=== PATIENT | male | born 1955 | race Caucasian/White ===

== ENCOUNTER 2020-03-27 15:20 | Emergency (ER) | payer BC, SELFPAY ==
[2020-03-27 15:36] VITALS: BP 135/75; PULSE 83; RESP 18; TEMP 37.1; O2SAT 97
--- NOTE | 2020-03-27 15:53 | ED.GENADUL_ITS ---
Discharge Plan Disposition Patient Disposition: HOME Condition: Stable Discharge Details Clinical Impression: Groin pain Primary Care Provider: Roc Alvarado ED Provider: Diony Taylor Home Meds and New Rx's Prescriptions: New diazepam [Valium] 10 mg tablet 10 mg PO TID PRN (Reason: muscle spasm) Qty: 10 RF: 0 Continued tamsulosin [Flomax] 0.4 mg Capsule 0.4 mg PO DAILY RF: 0 Zyrtec 10 mg Capsule 10 mg PO DAILY RF: 0 tadalafil [Cialis] 10 mg Tablet 10 mg PO PRN PRNRF: 0 bupropion HCl [Wellbutrin SR] 150 mg Tablet Sustained-Release 12 Hr 150 mg PO DAILY RF: 0 Cequa 0.09 % Dropperette 1 drp ophthalmic (eye) BID RF: 0 Discharge Instructions Additional Instructions: your lab work and cat scan did not show any concerning findings if pain is not gone within a week follow up with your primary care provider if you have severe worsening pain, fevers or vomit return to the emergency department Medical Decision Making 64 yo male with hx of prostate cancer undergoing surveillance per patient, who comes in with bilateral lower abdominal and groin pain since Monday. He states he was walking and slipped on some leaves and pulled his groin. He denies trauma or head injury. He has continued pain in lower abdomen and groin bilaterally, no fevers, no vomit no chestpain or sob. No testicle pain, swelling or tenderness, pain is localized to the bilateral groins and very lower abdomen bilaterally with no guarding or rebound or palpable hernias. Pain seems musculoskeletal but will image to evaluate for possible hernia. He has no findings to suggest torsion. No findings to suggest nec fasc or cellulitis. HAs intact distal sensation and pulses and can bear weight, doubt fracture or dissection. No s addle anesthesia and no midline back pain so doubt cauda equina and denies ivdu labs show no acute findings and has no tenderness on exam, likely has pulled groin will d/c with muscle relaxers and advised follow up with pcp and return precautions given Differential Diagnosis Differential Diagnosis: hernia, kidney stone Imaging Data Radiologic Study: Attestation: I personally reviewed and interpreted this imaging study as follows: Imaging: CT Scan Radiologist's impression: IMPRESSION: 1. No acute fracture or dislocation. Chronic degenerative changes in the lumbar spine and the pelvis. 2. Prostate gland enlargement. 3. No subacute solid or hollow viscus injury. 4. No acute intra-abdominal or pelvic findings. 5. Multiple large simple right renal cysts. The largest measures 4 cm Lab Data Lab results reviewed: Yes I reviewed the patient's lab results. HPI General Mode of arrival: ambulatory . Date/Time Provider Initiated Documentation: 03/27/20 15:23 . Limitations to Documentation: no limitations . Information obtained by: patient . History of Present Illness 64 year old M presents to the emergency department with the chief complaint of bilateral groin pain, described as moderate, and it has been constant. No relieving factors improve symptom(s), No exacerbating factors reported . Patient did receive the following treatments prior to arrival, none Related Data Home Medications Medication Instructions Recorded Confirmed Cequa 1 drp OPHTHALMIC (EYE) BID 03/27/20 03/27/20 Zyrtec 10 mg PO DAILY 03/27/20 03/27/20 bupropion HCl [Wellbutrin SR] 150 mg PO DAILY 03/27/20 03/27/20 diazepam [Valium] 10 mg PO TID PRN #10 tab 03/27/20 tadalafil [Cialis] 10 mg PO PRN PRN 03/27/20 03/27/20 tamsulosin [Flomax] 0.4 mg PO DAILY 03/27/20 03/27/20 Previous Rx's Medication Instructions Recorded diazepam [Valium] 10 mg PO TID PRN #10 tab 03/27/20 Allergies Allergy/AdvReac Type Severity Reaction Status Date / Time No Known Allergies Allergy Unverified 03/27/20 15:47 General Stated Complaint: Abd Prob ELIZABETH: 3 Review of Systems All systems reviewed & are unremarkable except as noted in HPI and below Constitutional Constitutional: Denies chills, Denies fever(s) and Denies weakness Cardiovascular Cardiovascular: Denies chest pain and Denies dyspnea Respiratory Respiratory: Denies cough and Denies dyspnea Gastrointestinal Gastrointestinal: Denies nausea and Denies vomiting Musculoskeletal Musculoskeletal: Denies joint swelling Neurologic Neurologic: Denies weakness Psychiatric Psychiatric: Denies depression PFSH Social History Smoking/Tobacco Use Status: Former Tobacco Use Smoking risk assessment performed?: Yes Alcohol Intake: current Alcohol Intake frequency: 0-2 drinks per day Alcohol type: hard liquor Drug use: Never Substance use type: does not use Do you feel safe at home: Yes Do you feel safe in your relationship?: Yes Exam Const General: no acute distress Orientation: alert HENMT Head: normal to inspection Ears: external ears normal General nose exam: external nose normal Mouth: moist mucous membranes Eyes General: appearance normal, both eyes and all related structures Neck Neck: normal visual inspection Resp Effort & Inspection: normal respiratory effort and able to speak in complete sentences Cardio Rate: regular rate GI Palpation: soft Male General Exam: No tenderness Skin General skin exam: no rashes or lesions noted Neuro General: patient alert and patient oriented x3 Extrem General: normal to inspection Psych Mental Status: mental status grossly normal Course Vital Signs Vital signs: Vital Signs Temperature 37.1 C 03/27/20 15:36 Pulse 83 03/27/20 15:36 Respiratory Rate 18 03/27/20 15:36 Blood Pressure 135/75 03/27/20 15:36 Pulse Oximetry 97 03/27/20 15:36 Temperature 37.1 C 03/27/20 15:36 Temperature Source Temporal Artery Scan 03/27/20 15:36 Pulse 83 03/27/20 15:36 Respiratory Rate 18 03/27/20 15:36 Blood Pressure 135/75 03/27/20 15:36 Blood Pressure Position Sitting 03/27/20 15:36 Pulse Oximetry 97 03/27/20 15:36 Oxygen Delivery Method Room Air 03/27/20 15:36 Oxygen Flow Rate 0 03/27/20 15:36 Pain Level 3 03/27/20 15:36
[2020-03-27 16:09] LABS: Abs Immature Grans 0.03 10^3/uL (0.0-0.06); Absolute Basophil Count 0.03 10^3/uL (0.0-0.2); Absolute Eosinophil Count 0.05 10^3/uL (0.0-0.7); Absolute Lymphocyte Count 0.86 10^3/uL (1.2-3.4); Absolute Monocyte Count 0.74 10^3/uL (0.1-0.8); Absolute Neutrophil Count 6.53 10^3/uL (1.2-6.7); Basophils % 0.4; Eosinophils % 0.6; HCT 40.7 % (40.0-50.0); HGB 13.7 g/dL (13.5-17.5); Immature Grans % 0.4; Lymphocytes % 10.4; MCH 29.2 pg (27.0-33.0); MCHC 33.7 % (32.0-36.0); MCV 86.8 fL (80-95); MPV 9.6 fL (8.0-11.0); Neutrophils % 79.2; Nucleated RBC 0 %; Platelet Count 189 10^3/uL (130-400); RBC 4.69 10^6/uL (4.36-5.78); RDW 12.5 % (11.8-14.1); RDW-SD 39.6 fL; WBC 8.24 10^3/uL (4.4-10.8)
[2020-03-27] MEDS: Normal Saline - Diluent 50 ML VIAL IV (16:19)
[2020-03-27] MEDS: Omnipaque 350 MG/ML 100 ML BTL IJ (16:20)
--- NOTE | 2020-03-27 16:21 | DI.CT_ITS ---
EXAM: CT ABDOMEN PELVIS W CLINICAL HISTORY: bilateral lower abdominal and groin pain TECHNIQUE: COMPARISON: No exams were available for comparison FINDINGS: CT examination of the abdomen and pelvis was performed with bolus infusion of 100 cc of Omnipaque 350 . Images obtained through the lung bases are unremarkable. The liver appears normal with no evidence of a focal mass. Spleen is unremarkable in appearance.. Gallbladder and bile ducts are unremarkable. Pancreas is unremarkable in appearance. Adrenals appear normal bilaterally. There are multiple renal cysts on the right, largest measuring about 4 cm in diameter. These appear to be simple cysts by CT criteria. There is no evidence of abdominal or pelvic adenopathy. Abdominal aorta is of normal diameter and no major vascular abnormality is seen. Appendix is normal. No evidence diverticulitis or bowel obstruction. No significant abdominal wall hernia seen. Impression: No evidence of acute intra-abdominal process. Multiple renal cysts noted on the right. RADIATION DOSE DELIVERED: 1,014.12mGy.cm Total DLP 1,014.12mGy.cm Total DLP 1,014.12mGy.cm Total DLP 1,014.12mGy.cm Total DLP DATA REPOSITORY: All CT scans at this facility are submitted to the National Radiology Data Registry (NRDR) Dose Index Registry (DIR) with the [employer] (ACR). RADIATION OPTIMIZATION: All CT scans at this facility use at least one of these dose optimization te chniques: automated exposure control; mA and/or kV adjustment per patient size (includes targeted exa ms where dose is matched to clinical indication); or iterative reconstruction.
[2020-03-27] MEDS: Normal Saline 1,000 ML 1000 ML IV (16:23)
[2020-03-27 16:29] LABS: ALT 26 U/L (16-63); AST 21 U/L (15-37); Albumin 3.8 g/dL (3.4-5.0); Alkaline Phosphatase 51 U/L (46-116); Anion Gap 11.4 mmol/L (3-11); BUN 13 mg/dL (7-18); Bilirubin, Total 0.6 mg/dL (0.2-1.0); CO2 24.6 mmol/L (21.0-32.0); CREATININE 0.74 mg/dL (0.70-1.30); Calcium 8.8 mg/dL (8.5-10.1); Chloride 103 mmol/L (98-107); Glucose 105 mg/dL (74-106); Lipase 79 U/L (73-393); Sodium 139 mmol/L (136-145); Total Protein 7.7 g/dL (6.4-8.2)
--- NOTE | 2020-03-27 16:39 | DI.VRAD_ITS ---
PROCEDURE INFORMATION: Exam: CT Abdomen And Pelvis With Contrast Exam date and time: 03/27/2020 3:53 PM Age: 64 years old Clinical indication: Abdominal pain; Other: RT groin pain; Patient HX: Injury 4 days ago TECHNIQUE: Imaging protocol: Computed tomography of the abdomen and pelvis with intravenous contrast. Radiation optimization: All CT scans at this facility use at least one of these dose optimization techniques: automated exposure control; mA and/or kV adjustment per patient size (includes targeted exams where dose is matched to clinical indication); or iterative reconstruction. Contrast material: OMNI 350; Contrast volume: 100 ml; Contrast route: INTRAVENOUS (IV); COMPARISON: No relevant prior studies available. FINDINGS: Lungs: Tiny focus of posterior right lower lobe atelectasis. The visualized lung bases are otherwise clear. Heart size is normal. Liver: Mild generalized hepatic steatosis. No hepatic laceration. No perihepatic fluid. Gallbladder and bile ducts: Normal. No calcified stones. No ductal dilation. Pancreas: Normal. No ductal dilation. Spleen: Normal. No splenomegaly. Adrenal glands: Normal. No mass. Kidneys and ureters: Multiple large right lower pole renal cyst. Largest measures 4 cm. Subcentimeter medial left lower pole renal cyst. Stomach and bowel: Unremarkable. No obstruction. No mucosal thickening. Appendix: Normal appendix. No acute appendicitis. Intraperitoneal space: Unremarkable. No free air. No significant fluid collection. Vasculature: Unremarkable. No abdominal aortic aneurysm. Lymph nodes: Unremarkable. No enlarged lymph nodes. Urinary bladder: Unremarkable as visualized. Reproductive: Prostate gland enlargement measuring up 5.6 cm in transverse dimension. Median lobe hypertrophy. Bones/joints: Multilevel degenerative changes in the lumbar spine. Chronic sacroiliitis, left greater than right. Osteitis pubis. No acute fracture or dislocation. Soft tissues: Unremarkable. IMPRESSION: 1. No acute fracture or dislocation. Chronic degenerative changes in the lumbar spine and the pelvis. 2. Prostate gland enlargement. 3. No subacute solid or hollow viscus injury. 4. No acute intra-abdominal or pelvic findings. 5. Multiple large simple right renal cysts. The largest measures 4 cm. Dictated and Authenticated by: Shakila Wilkinson MD. Ordering:PETROS Vora MD
[2020-03-27 16:45] LABS: Bilirubin Negative (Negative); Blood Small (Negative); Clarity Clear (Clear); Glucose Negative (Negative); Ketones Negative (Negative); Leukocyte Esterase Negative (Negative); Nitrite Negative (Negative); Specific Gravity 1.025 (1.005-1.025); Urobilinogen 0.2 EU/dL (Up TO 0.2); pH 6.5 (5-8)
[2020-03-27 16:52] LABS: RBC 0-2 HPF (0-2); WBC 0-2 HPF (0-5)
[2020-03-27 16:53] LABS: Bacteria Negative HPF (Negative); C & S Indicated? No; Casts Negative LPF (Negative); Crystals Negative HPF (Negative); Epithelial Cells Rare HPF (Negative); Mucus Negative (Negative)
[2020-03-27 16:55] VITALS: BP 133/85; PULSE 73; RESP 16; O2SAT 98
== END 2020-03-27 17:10 | disposition home or self-care (01) ==
PROVIDERS: Emergency Provider Emergency Medicine; PCP Family Medicine
DX: R10.31 Right lower quadrant pain (principal); R10.32 Left lower quadrant pain; W18.49XA Other slipping, tripping and stumbling without falling, initial encounter; Z85.46 Personal history of malignant neoplasm of prostate
CPT/HCPCS: 36415; 80053; 83690; 96360; 99285; 74177; 81003; 81015; 85025; 99284; J3490

== ENCOUNTER 2021-03-03 13:09 | Outpatient (REF) | payer BC, SELFPAY ==
[2021-03-03 14:10] LABS: CREATININE 0.9 mg/dL (0.70-1.30); TSH (W/Ref FT4) 4.55 uIU/mL (0.36-3.74)
[2021-03-03 14:31] LABS: Hemoglobin A1C 5.4 % (<5.7)
[2021-03-03 14:32] LABS: FREE T4 0.95 ng/dL (0.76-1.46)
[2021-03-03 21:37] LABS: PSA, Diagnostic 4.7 ng/mL (0.0-4.5)
[2021-03-04 10:19] LABS: Hepatitis C Ab w Rflx HCV PCR Negative (Negative)
== END 2021-03-03 13:10 | disposition home or self-care (01) ==
LOC: NCHCN 13:09
PROVIDERS: PCP Family Medicine; Visit Provider Family Medicine
DX: Z00.00 Encounter for general adult medical examination without abnormal findings (principal); C61 Malignant neoplasm of prostate; R94.6 Abnormal results of thyroid function studies; R73.09 Other abnormal glucose; I10 Essential (primary) hypertension; Z11.59 Encounter for screening for other viral diseases
CPT/HCPCS: 86803; 82565; 83036; 84153; 84439; 84443

== ENCOUNTER 2021-04-29 09:05 | Emergency (ER) | payer BC, SELFPAY ==
[2021-04-29 09:09] VITALS: BP 180/82; PULSE 61; RESP 16; TEMP 36.7; O2SAT 100
--- NOTE | 2021-04-29 09:19 | ED.GENADUL_ITS ---
Discharge Plan Disposition Patient Disposition: HOME Condition: Stable Discharge Details Clinical Impression: Rib contusion, Cervical strain, Blunt chest trauma Primary Care Provider: Roc Alvarado ED Provider: Diony Taylor Home Meds and New Rx's Prescriptions: Continued tamsulosin [Flomax] 0.4 mg Capsule 0.4 mg PO DAILY RF: 0 Zyrtec 10 mg Capsule 10 mg PO DAILY RF: 0 tadalafil [Cialis] 10 mg Tablet 10 mg PO PRN PRNRF: 0 bupropion HCl [Wellbutrin SR] 150 mg Tablet Sustained-Release 12 Hr 150 mg PO DAILY RF: 0 Cequa 0.09 % Dropperette 1 drp ophthalmic (eye) BID RF: 0 Discharge Instructions Instructions: Cervical Strain (ED), Rib Contusion (ED) Additional Instructions: your imaging shows no acute fractures if pain continues next week follow up with your primary care provider if you feel more ill, have severe worsening pain or difficulty breathing return to the emergency department Medical Decision Making 65 yo male comes in with neck pain and left scapula pain. He was getting out of his car and slipped on ice and landed on his left side. Denies hitting head or loc and had no preceding symptoms to the fall. He denies head pain abodminal pa in leg pain. He has pain in the left posterior back over the left scapula. No pain in the shoulder, humerus, elbow, forearm, wrist or hand, normal pulses and sensation. He is also tender to palpation in the 3-6 ribs in the mid axillary line on the left. No midline c spine tenderness but is tender to the left posterior neck. Suspect strain and contusions but will obtain ct c spine and chest. HE has no abdominal tenderness and no signs of trauma to the head so do not feel imaging of head or abdomen/pelvis indicated. 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 Has no midline tenderness and full range of motion. Suspect contusion will discharge and have him follow up with his pcp if pain continues next week and return precautions given Differential Diagnosis Differential Diagnosis: fracture, strain, contusion Imaging Data Radiologic Study: Attestation: I personally reviewed and interpreted this imaging study as follows: Imaging: CT Scan Radiologist's impression: IMPRESSION: No evidence of cervical spine fracture, malalignment, nor acute compromise of the cervical spinal canal. Previous multilevel left-sided laminae a surgeries as described above. Radiologic Study #2: Attestation: I personally reviewed and interpreted this imaging study as follows: Imaging: CT Scan Radiologist's impression: no acute findings on chest ct per Dr. Bela HPI General Mode of arrival: ambulatory . Date/Time Provider Initiated Documentation: 04/29/21 09:06 . Limitations to Documentation: no limitations . Information obtained by: patient . History of Present Illness 65 year old M presents to the emergency department with the chief complaint of neck pain, described as moderate, Quality is described as aching, and is localized to the neck. Patient started experiencing this hour(s) (1) and it has been constant. Rest improves symptom(s), Movement worsens symptoms . Patient n otes other (left scapula pain). Patient did receive the following treatments prior to arrival, none Related Data Home Medications Medication Instructions Recorded Confirmed Cequa 1 drp OPHTHALMIC (EYE) BID 03/27/20 04/29/21 Zyrtec 10 mg PO DAILY 03/27/20 04/29/21 bupropion HCl [Wellbutrin SR] 150 mg PO DAILY 03/27/20 04/29/21 tadalafil [Cialis] 10 mg PO PRN PRN 03/27/20 04/29/21 tamsulosin [Flomax] 0.4 mg PO DAILY 03/27/20 04/29/21 Allergies Allergy/AdvReac Type Severity Reaction Status Date / Time No Known Allergies Allergy Unverified 04/29/21 09:15 General Stated Complaint: Trauma ELIZABETH: 3 Review of Systems All systems reviewed & are unremarkable except as noted in HPI and below Constitutional Constitutional: Denies chills, Denies fever(s) and Denies weakness Cardiovascular Cardiovascular: Denies dyspnea Respiratory Respiratory: Denies cough and Denies dyspnea Gastrointestinal Gastrointestinal: Denies abdominal pain, Denies nausea and Denies vomiting Musculoskeletal Musculoskeletal: Denies joint swelling Neurologic Neurologic: Denies weakness PFSH All Active Problems (Updated 04/29/21 @ 10:36 by Diony Taylor MD) Rib contusion (Acute) Cervical strain (Acute) Blunt chest trauma (Acute) Social History Smoking/Tobacco Use Status: Former Tobacco Use Smoking risk assessment performed?: Yes Alcohol Intake: current Alcohol Intake frequency: 0-2 drinks per day Alcohol ty pe: hard liquor Drug use: Never Substance use type: does not use Do you feel safe at home: Yes Do you feel safe in your relationship?: Yes Exam Const General: no acute distress Orientation: alert HENMT Head: normal to inspection Ears: external ears normal General nose exam: external nose normal Mouth: moist mucous membranes Eyes General: appearance normal, both eyes and all related structures Neck Neck: normal visual inspection Chest Chest: no crepitus and tenderness Resp Effort & Inspection: normal respiratory effort and able to speak in complete sentences Cardio Rate: regular rate GI Palpation: soft and nontender Skin General skin exam: no rashes or lesions noted Neuro General: patient alert and patient oriented x3 Extrem General: normal to inspection Psych Mental Status: mental status grossly normal Course Vital Signs Vital signs: Vital Signs Temperature 36.7 C 04/29/21 09:09 Pulse 61 04/29/21 09:09 Respiratory Rate 16 04/29/21 09:09 Blood Pressure 180/82 H 04/29/21 09:09 Pulse Oximetry 100 04/29/21 09:09 Temperature 36.7 C 04/29/21 09:09 Temperature Source Temporal Artery Scan 04/29/21 09:09 Pulse 61 04/29/21 09:09 Respiratory Rate 16 04/29/21 09:09 Respiratory Effort Non-Labored 04/29/21 09:13 Blood Pressure 180/82 H 04/29/21 09:09 Blood Pressure Position Supine 04/29/21 09:09 Pulse Oximetry 100 04/29/21 09:09 Oxygen Delivery Method Room Air 04/29/21 09:09 Oxygen Flow Rate 0 04/29/21 09:09 Pain Level 7 04/29/21 09:09 PAWSS Have you Been Recently Intoxicated or Drunk Within the Last 30 days?: No Have you Ever Experienced Previous Episodes of Alcohol Withdrawal?: No Have you ever Experienced Withdrawal Seizures?: No Have you ever Experienced Delirium Tremens(DT)s?: No Have you ever undergone Alcohol Rehabilitation Treatment (i.e, inpt ot outpatient treatment programs)?: No Have you ever Experienced Blackouts?: No Have you ever Combined Alcohol with other Downers within the last 90 days?: No Have you ever Combined Alcohol with any other Substance of Abuse during the last 90 days?: No Positive Blood Alcohol level on Presentation? [PCS.BAL]: No Evidence of Increased Autonomic Activity (i.e. HR>120, tremor, sweating, agitation, nausea)?: No Result: 0
--- NOTE | 2021-04-29 09:35 | DI.CT_ITS ---
Exam(s) CT CERVICAL SPINE WO EXAM: CT CERVICAL SPINE WO CLINICAL HISTORY: fall, pain. TECHNIQUE: Imaging Protocol: Axial computed tomography images with coronal and sagittal reformatted images were created and reviewed COMPARISON: No exams were available for comparison FINDINGS: CERVICAL SPINE: There is evidence of prior surgery with plates across the left C4 and C6 laminae. There is a healed C5 left lamina fracture site. The plated left C6 lamina fracture site appears stab le. C7 left lamina fracture site is probably chronic. There are no obvious acute fractures nor list hesis. No facet malalignment. Chronic multilevel degenerative disc disease noted at C4-5, C5-6, and C6-7 levels. IMPRESSION: No evidence of cervical spine fracture, malalignment, nor acute compromise of the cervical spinal can al. Previous multilevel left-sided laminae a surgeries as described above. RADIATION DOSE DELIVERED: 615.2mGy.cm Total DLP DATA REPOSITORY: All CT scans at this facility are submitted to the National Radiology Data Registry (NRDR) Dose Index Registry (DIR) with the [employer] (ACR). RADIATION OPTIMIZATION: All CT scans at this facility use at least one of these dose optimization te chniques: automated exposure control; mA and/or kV adjustment per patient size (includes targeted exa ms where dose is matched to clinical indication); or iterative reconstruction.
--- NOTE | 2021-04-29 09:45 | DI.CT_ITS ---
Exam(s) CT CHEST WO EXAM: CT CHEST WO CLINICAL HISTORY: fall, pain on left chest/scapula. TECHNIQUE: Multi planar reconstructions were performed. CONTRAST MATERIAL: None COMPARISON: No exams were available for comparison FINDINGS: CHEST: LUNGS: There are minimal pleural based markings posteriorly over the superior segment left lower lobe . No prominent infiltrates. No pleural effusions. No ominous pulmonary nodules. There are no sign ificant focal findings in the trachea and mainstem bronchi. No bronchiectasis. MEDIASTINUM: There is no obvious hilar nor mediastinal adenopathy. No mediastinal hematoma.Visualized thyroid unremarkable. CARDIAC: Heart size upper normal. No pericardial effusion. Diameterof the ascending thoracic aorta is slightly prominent, measuring 3.9 cm. Diameter of the mid aortic arch is 3 cm. Diameter of the d escending thoracic aorta is upper normal. VISUALIZED UPPER ABDOMEN:No adrenal masses. Partially included cysts noted in the right kidney, the largest measuring 4 cm. OSSEOUS: No significant osseous lesions.No fractures.. IMPRESSION: 1. No acute fractures identified. No pneumothorax nor lung contusion.. No pleural effusions. 2. Other findings as above RADIATION DOSE DELIVERED: 587.51mGy.cm Total DLP DATA REPOSITORY: All CT scans at this facility are submitted to the National Radiology Data Registry (NRDR) Dose Index Registry (DIR) with the [employer] (ACR). RADIATION OPTIMIZATION: All CT scans at this facility use at least one of these dose optimization te chniques: automated exposure control; mA and/or kV adjustment per patient size (includes targeted exa ms where dose is matched to clinical indication); or iterative reconstruction.
[2021-04-29 10:35] VITALS: BP 135/69; PULSE 63; RESP 16; TEMP 36.7; O2SAT 100
== END 2021-04-29 10:41 | disposition home or self-care (01) ==
PROVIDERS: Emergency Provider Emergency Medicine; PCP Family Medicine
DX: S20.212A Contusion of left front wall of thorax, initial encounter (principal); S16.1XXA Strain of muscle, fascia and tendon at neck level, initial encounter; W00.0XXA Fall on same level due to ice and snow, initial encounter
CPT/HCPCS: 71250; 99284; 72125; 99283

== ENCOUNTER 2021-08-23 20:54 | Outpatient (REF) | payer BC, SELFPAY ==
[2021-08-23 21:06] LABS: Anion Gap 10.6 mmol/L (3-11); BUN 19 mg/dL (7-18); CO2 24.4 mmol/L (21.0-32.0); CREATININE 1.1 mg/dL (0.70-1.30); Calcium 8.9 mg/dL (8.5-10.1); Chloride 106 mmol/L (98-107); Glucose 113 mg/dL (74-106); Potassium 3.9 mmol/L (3.5-5.1); Sodium 141 mmol/L (136-145); TSH (W/Ref FT4) 4.08 uIU/mL (0.36-3.74)
[2021-08-23 21:28] LABS: FREE T4 0.96 ng/dL (0.76-1.46)
== END 2021-08-23 20:55 | disposition home or self-care (01) ==
LOC: NCHCN 20:54
PROVIDERS: PCP Family Medicine; Visit Provider Family Medicine
DX: R94.6 Abnormal results of thyroid function studies (principal); I10 Essential (primary) hypertension
CPT/HCPCS: 80048; 84439; 84443

== ENCOUNTER 2022-03-11 16:35 | Outpatient (REF) | payer BC, SELFPAY ==
[2022-03-11 18:26] LABS: TSH (W/Ref FT4) 4.94 uIU/mL (0.36-3.74)
[2022-03-11 18:47] LABS: FREE T4 0.95 ng/dL (0.76-1.46)
[2022-03-14 13:56] LABS: PSA, Diagnostic 4.7 ng/mL (<=4.5)
== END 2022-03-11 16:36 | disposition home or self-care (01) ==
LOC: NCHCN 16:35
PROVIDERS: PCP Family Medicine; Visit Provider Family Medicine
DX: R94.6 Abnormal results of thyroid function studies (principal); C61 Malignant neoplasm of prostate
CPT/HCPCS: 84153; 84439; 84443

== ENCOUNTER → 2022-03-17 01:46 | Outpatient (CLI) | payer BC, SELFPAY ==
--- NOTE | 2022-03-17 15:30 | DI.RAD_ITS ---
Exam(s) XR ARTHRITIS SERIES EXAM: XR ARTHRITIS SERIES CLINICAL HISTORY: BILAT HAND PAIN WITH MCP AND DIP/PIP HYPERTROPHY, HAND ARTHRITIS, M12.849 TECHNIQUE: COMPARISON: No exams were available for comparison FINDINGS: Two views of each hand were obtained. There are mild degenerative changes of the IP joints, more pro minent in in the right hand than the left, the findings are most marked involving the IP joints of th umbs bilaterally. The changes are manifested by mild joint space narrowing and mild to moderate lesly inal osteophytes of the IP joints, predominantly of the thumb bilaterally and the thumb and index fin xiao on the right hand. Note is also made of degenerative change at the 3rd M CP joint on the right There are mild degenerative changes of the carpus bilaterally. IMPRESSION: Mild DJD as described above. RADIATION DOSE DELIVERED: Total DLP
== END ==
PROVIDERS: PCP Family Medicine; Visit Provider Family Medicine
DX: M19.041 Primary osteoarthritis, right hand (principal); M19.042 Primary osteoarthritis, left hand
CPT/HCPCS: 73120

== ENCOUNTER 2022-09-01 10:28 | Outpatient (REF) | payer BC, SELFPAY ==
[2022-09-01 15:12] LABS: Abs Immature Grans 0.02 10^3/uL (0.0-0.06); Absolute Basophil Count 0.05 10^3/uL (0.0-0.2); Absolute Eosinophil Count 0.24 10^3/uL (0.0-0.7); Absolute Lymphocyte Count 0.83 10^3/uL (1.2-3.4); Absolute Monocyte Count 0.47 10^3/uL (0.1-0.8); Absolute Neutrophil Count 3.76 10^3/uL (1.2-6.7); Basophils % 0.9; Eosinophils % 4.5; HCT 40.8 % (40.0-50.0); Immature Grans % 0.4; Lymphocytes % 15.5; MCH 29.5 pg (27.0-33.0); MCHC 34.3 % (32.0-36.0); MCV 86 fL (80-95); Monocytes % 8.8; Neutrophils % 69.9; Platelet Count 197 10^3/uL (130-400); RBC 4.74 10^6/uL (4.36-5.78); RDW 12.3 % (11.8-14.1); RDW-SD 38.8 fL; WBC 5.37 10^3/uL (4.4-10.8)
[2022-09-01 16:01] LABS: Hemoglobin A1C 5.5 % (<5.7)
[2022-09-01 16:50] LABS: ALT 32 U/L (16-63); AST 23 U/L (15-37); Albumin 3.9 g/dL (3.4-5.0); Alkaline Phosphatase 50 U/L (46-116); BUN 14 mg/dL (7-18); Bilirubin, Total 0.6 mg/dL (0.2-1.0); CREATININE 0.8 mg/dL (0.70-1.30); Calcium 8.7 mg/dL (8.5-10.1); Chloride 105 mmol/L (98-107); Estimated GFR 97.61 (mL/min/1.73m2); Glucose 107 mg/dL (74-106); Potassium 4.4 mmol/L (3.5-5.1); Sodium 141 mmol/L (136-145); TSH (W/Ref FT4) 3.14 uIU/mL (0.36-3.74); Total Protein 7.1 g/dL (6.4-8.2); Vitamin B12 300 pg/mL (193-986)
== END 2022-09-01 10:29 | disposition home or self-care (01) ==
LOC: NCHCN 10:28
PROVIDERS: PCP Family Medicine; Visit Provider Family Medicine
DX: R20.2 Paresthesia of skin (principal); R94.6 Abnormal results of thyroid function studies; R73.03 Prediabetes
CPT/HCPCS: 80053; 82607; 83036; 84443; 85025

== ENCOUNTER 2022-10-12 12:04 | Outpatient (REF) | payer BC, SELFPAY ==
[2022-10-21 09:04] LABS: PSA, Diagnostic 3.4 ng/mL (<=4.5)
== END 2022-10-12 12:05 | disposition home or self-care (01) ==
LOC: NCHCN 12:04
PROVIDERS: PCP Family Medicine; Visit Provider Family Medicine
DX: C61 Malignant neoplasm of prostate (principal)
CPT/HCPCS: 84153

== ENCOUNTER 2023-03-14 17:21 | Outpatient (REF) | payer BC, SELFPAY ==
[2023-03-14 20:06] LABS: Calculated LDL 113 mg/dL (<100); Cholesterol 204 mg/dL (<200); HDL Cholesterol 48 mg/dL (40-60); Triglyceride 215 mg/dL (<150)
== END 2023-03-14 17:22 | disposition home or self-care (01) ==
LOC: NCHCN 17:21
PROVIDERS: PCP Family Medicine; Visit Provider Family Medicine
DX: Z00.00 Encounter for general adult medical examination without abnormal findings (principal)
CPT/HCPCS: 80061

== ENCOUNTER 2023-05-23 16:27 | Outpatient (REF) | payer BC, SELFPAY ==
[2023-05-24 18:09] LABS: PSA, Screening 3.8 ng/mL (<=4.5)
== END 2023-05-23 16:28 | disposition home or self-care (01) ==
LOC: NCHCN 16:27
PROVIDERS: PCP Family Medicine; Visit Provider Family Medicine
DX: Z12.5 Encounter for screening for malignant neoplasm of prostate (principal)
CPT/HCPCS: 84153

== ENCOUNTER 2024-02-26 16:31 | Outpatient (REF) | payer BC, SELFPAY ==
--- OUTSIDE RECORDS SUMMARY | 2024-02-26 16:32 | XMS_ITS | Encounter Summary ---
Author Organization [facility] Address [facility] [place] [address] Care Team Providers Care Field Agent Name Role Phone Jaz Sy MD Primary Care Provider [phone] Encounter Details Date Type Department Care Team (Late st Contact Info) Description 12/18/2023 9:00 AM EDT Procedure [place] [phone] Amanda Plummer MD [facility] [place] [address] Elevated PSA Social History Tobacco Use Types Packs/Day Years Used Date Smoking Tobacco: Former Cigarettes Cigars Smokeless Tobacco: Never Comments:QUIT at age 31 - Sm oked for approx 15 years and varied for PPD Sex and Gender Information Value Date Recorded Sex Assigned at Not on file Gender Identity Not on file Sexual Orientation Not on file documented as of this encounter Last Filed Vital Signs Vital Sign Reading Time Taken Comments Blood Pressure 113/69 12/18/2023 8:40 AM EDT Pulse 65 12/18/2023 8:40 AM EDT Temperature - - Respiratory Rate - - Oxygen Saturation 97% 12/18/2023 8:40 AM EDT Inhaled Oxygen Concentration - - Weight 79.4 kg (175 lb) 12/18/2023 8:40 AM EDT Height 170 cm (5' 6.93) 12/18/2023 8:40 AM EDT Body Mass Index 27.47 12/18/2023 8:40 AM EDT documented in this encounter Patient Instructions * Patient Instructions* Mora Brown LPN - 12/18/2023 9:00 AM EDT PROSTATE BIOPSY DISCHARGE INFORMATION You will get a call next week with your biopsy pathology. Your pathology result may be released to your [facility] account before we have had a chance to contact you. You should feel free to check your [facility] if you would like to see if your pathology has been release. However, by doing so, you may receive your prostate biopsy results PRIOR to us discussing them with you. If you are not comfortable with receiving your pathology prior to our discussion, please de gretchen from looking at your biopsy results until we can contact you. You should call your doctor if you experience any of the following: You see blood in your urine, bowel movements, or semen outside of the timeframe listed below. You have a temperature greater than 101.5 degrees. You start to pass large clots of blood in your urine or it turns the color of tomato juice. You are having increasing pain. Your doctor may be reached at weekdays from 8 AM to 5 PM. If you should develop any of these symptoms after these hours, please call the hospital saturator operator at and ask to have the Urology Resident paged or report to the Emergency Department. What do I need to watch out for after the biopsy? You will almost certainly have some blood in your urine. This will generally be gone within 48 hours. However, it may last on and off for up to two weeks. You will almost certainly have some blood in your bowels. This will generally be gone within 48 hours. However, it may last on and off for up to two weeks. You will almost certainly have some blood in your semen or sperm. This may last on and off for up to six weeks. If you have been instructed to take an antibiotic in addition to the antibiotic given to you on the day, please finish the remainder of any prescription ordered. Are there any restrictions after the prostate biopsy? You should take it easy after the biopsy until the blood clears in your urine and stool. Drink extra fluids. We suggest no heavy lifting, straining, or sports until after you stop seeing blood in theurine or stool. You should not have sexual activity for 48 hours after the biopsy. As long as you feel okay, you should be able to drive yourself home from the biopsy. We recommend that you bring someone with you but this is not absolutely necessary. You may resume aspirin and other medications containing aspirin or NSAIDS (Motrin, Advil, naprosyn,etc.) one week after your biopsy. If you are on a blood thinner, such as Coumadin, heparin, or fragmin, please contact your Primary Care Provider after the procedure to see when they wish you to resume medications. It is important you do this because some medications will require a blood test as well. When will I get the results of the biopsy? The biopsy needs to be processed and examined by a pathologist. In general, this takes about a week. Your doctor will then either see you in the office or call you on the telephone to give you the results. If you have not heard a result within 10 days of your biopsy, please call your doctor. What happens if I am found to have prostate cancer? If you are found to have prostate cancer, your doctor will discuss what this means for you. Prostate cancer is very treatable and, in most cases, there are several good treatment options. You will begiven or sent a package of information about the treatment of prostate cancer. An appointment will be made for a follow-up visit one to two weeks after the biopsy result is given to you in order to discuss all the issues in more detail and arrange a treatment plan. What happens if the biopsy does not show prostate cancer? Your doctor will discuss the results of the biopsy with you. Your doctor will give you a recommendation regarding any necessary follow up. documented in this encounter Progress Notes * Amanda Plummer MD - 12/18/2023 9:00 AM EDT Procedure Note 68 yo on Active surveillance for [id number] Grade Group 1 [place] 3+3=6 Very low risk Prostate cancer. 11/27/2023 PSA 4.5 PSAD= 0.83 11/2023 MR 53 cc IMPRESSION No focal lesions. BPH. PI-RADS 2. Clinically significant cancer is unlikely to be present. Procedure: Transrectal ultrasound and prostate biopsy Surgeon: Amanda Barraza Preoperative Diagnosis: Prostate cancer Active surveillance Post Operative Diagnosis: Successful Biopsy Complications: None Procedure: A time out procedure was performed in accordance with the standard check list. It was confirmed the patient had a urinanalysis that did not show evidence of a urinary infection prior to the biopsy. It was confirmed that the patient took Levaquin 500mg po ~ 1 hour ago. The TRUS probe was inserted into the rectum and the prostate imaged in the sagittal and transverse dimensions. Prostatic anaesthesia was achieved in the standard fashion. Prostate volume was 49cc. The prostate was homogeneous. Prostate calcifications were observed at the junction of the peripheral and transition zones. Hypochoic areas:Left Mid/Base, Right [place] Rectum, periprostatic structures, visualized areas of the bladder, vas deferens and seminal vesicles all appeared normal Targeted biopsies None additional U/S hypoechoic area 1: location:included in standard template U/S hypoechoic area 2: location:included in standard template A series of prostatic biopsies were obtained from the lateral apex, mid,and base as well as mid sagittal apex, mid and base. Biopsies were obtained from both the right and left side of the prostate. A total of 12 biopsies were obtained. The estimated blood loss was <10cc. The patient tolerated the procedure without difficulty. I will contact him in about a weeks time with the results. He understands that if he does not hear from me or has any problems to contact my office. Amanda Plummer documented in this encounter Plan of Treatment Upcoming Encounters Date Type Department Care Team (Late st Contact Info) Description 05/21/2024 8:00 AM EST Procedure [place] [phone] Diony Huang MD [facility] [place] [address] 07/05/2024 9:00 AM EST Laboratory Appointment Lab [address] [place] [phone] 07/05/2024 10:00 AM EST Office [place] [phone] Talisha Nino APRN [facility] [place] [address] documented as of this encounter Results * US Guided Biopsy Prostate ([facility] ONLY) (12/18/2023 10:56 AM EDT) WORKSTATION ID [id number] RAD Anatomical Region Laterality Modality Pelvis Ultrasound 12/18/2023 10:5 3 AM EDT Impressions 12/18/2023 2:12 PM EDT Prostate Summary Transrectal ultrasound of the prostate was performed. Hypoechoic areas seen bilaterally - Left Medial Base/mid, Right lateral mid/apex. Ultrasound guidance was provided for Dr. Plummer of the section of Urology who performed multiple biopsies in the [address] [place] [address] location. Please see above. Electronically signed by: Roberto Crystal MD, [facility] ([phone]), at 12/18/2023 2:06 PM Thank you for letting us participate in the care of this patient. If you are a health care provider and have any questions regarding this report, please contact the number above. For patients who have questions, please contact the health college and career counselor that requested your imaging first. ?Roberto Crystal, Staff Physician Electronically Signed Final Report ?? 12/18/2023 02:12 pm Narrative 12/18/2023 2:12 PM EDT Male Pelvis ? (Signed Final 12/18/2023 02:12 pm) PATIENT INFO: ID #: ? [id number] ?: ??[birth year] (68 yrs)(M) Name: ? DAKOTABritney SWARTZ ? Visit Date: 12/18/2023 10:53 am PERFORMED BY: Attending: ?Roberto Crystal MD. Performed By: ? Davian Da Silva RDMS Referred By: ?AMANDA PLUMMER Location: ? [place] SERVICE(S) PROVIDED: UTRBX - Prostate Biopsy - [id number] ?[id number], [id number] INDICATIONS: Elevated PSA TECHNIQUE/SCAN QUALITY: Technique: ?Transducer #:[id number] COMPARISON: Ultrasound: Prostate 08/03/20, MRI Pelvis 11/24/23 --------- PROSTATE: --------- Size (cm) ?L: ??5.1 ? AP: ??3.7 ? TV: ??4.9 Vol (ml): ?48.4 Comment: ?Hypoechoic areas seen bilaterally - Left Medial ? Base/mid, Right lateral mid/apex. ADDITIONAL FINDINGS: 6 biopsies obtained from the right. 6 biopsies obtained from the left Procedure Note Roberto Crystal MD - 12/18/2023 Male Pelvis (Signed Final 12/18/2023 02:12 pm) PATIENT INFO: ID #: [id number] : [birth year] (68 yrs)(M) Name: JERAD SWARTZ Visit Date: 12/18/2023 10:53 am PERFORMED BY: Attending: Roberto Crystal MD Performed By: Davian Da Silva RDMS Referred By: AMANDA PLUMMER Location: [place] SERVICE(S) PROVIDED: UTRBX - Prostate Biopsy - [id number], [id number] INDICATIONS: Elevated PSA TECHNIQUE/SCAN QUALITY: Technique: Transducer #:[id number] COMPARISON: Ultrasound: Prostate 08/03/20, MRI Pelvis 11/24/23 --------- PROSTATE: --------- Size (cm) L: 5.1 AP: 3.7 TV: 4.9 Vol (ml): 48.4 Comment: Hypoechoic areas seen bilaterally - Left Medial Base/mid, Right lateral mid/apex. ADDITIONAL FINDINGS: 6 biopsies obtained from the right. 6 biopsies obtained from the left IMPRESSION Prostate Summary Transrectal ultrasound of the prostate was performed. Hypoechoic areas seen bilaterally - Left Medial Base/mid, Right lateral mid/apex. Ultrasound guidance was provided for Dr. Plummer of the section of Urology who performed multiple biopsies in the clinic location. Please see above. Electronically signed by: Roberto Crystal MD, [facility] ([phone]), at 12/18/2023 2:06 PM Thank you for letting us participate in the care of this patient. If you are a health care provider and have any questions regarding this report, please contact the number above. For patients who have questions, please contact the health college and career counselor that requested your imaging first. Roberto Crystal, Staff Physician Electronically Signed Final Report 12/18/2023 02:12 pm Amanda Plummer MD [facility] PROC ORDERABL ES documented in this encounter Visit Diagnoses Diagnosis Elevated PSA Elevated prostate specific antigen (PSA) Elevated PSA Elevated prostate specific antigen (PSA) documented in this encounter Administered Medications Inactive Administered Medications - up to 3 most recent administrations Medication Order MAR Action Action Date Dose Rate Site fosfomycin tromethamine (MONUROL) packet 3 g 3 g, Oral, ONCE, 1 dose, On Mon12/18/23 at 0900, Pour the entire contents of a sachet containing the equivalent of 3 g of fosfomycin into 4 oz (1/2 cup) of water; do not use hot water. Stir to dissolve. Give immediately after dissolving., Routine, Indication for (Active or Suspected): Prophylaxis Given 12/18/2023 8:44 AM EDT 3 g levoFLOXacin (Levaquin) tablet 500 mg 500 mg, Oral, ONCE, 1 dose, On Mon12/18/23 at 0900, Give this medication 2 hours BEFORE, or 6 hours AFTER products with multivalent cations (e.g. Calcium, Iron, Zinc, Magnesium, Aluminum). Do not coadminister, Routine Given 12/18/2023 8:44 AM EDT 500 mg documented in this encounter Care Teams Field Agent Relationship Specialty Start Date End Date Jaz Sy MD [address] [place] [id number] PCP - General Family Medicine 12/18/23 documented as of this encounter
--- OUTSIDE RECORDS SUMMARY | 2024-02-26 16:32 | XMS_ITS | Encounter Summary ---
Author Organization [facility] [place] [address] Care Team Providers Care Supercharger Mechanic Name Role Phone Jaz Sy MD Primary Care Provider [phone] Encounter Details Date Type Department Care Team (Late st Contact Info) Description 12/25/2023 Telephone [place] [phone] Roc Plummer MD [facility] [place] [address] Social History Tobacco Use Types Packs/Day Years Used Date Smoking Tobacco: Former Cigarettes Cigars Smokeless Tobacco: Never Comments:QUIT at age 31 - Sm oked for approx 15 years and varied for PPD Sex and Gender Information Value Date Recorded Sex Assigned at Not on file Gender Identity Not on file Sexual Orientation Not on file documented as of this encounter Miscellaneous Notes * Telephone Encounter - Roc Plummer MD - 12/25/2023 8:11 PM EDT [facility] [place] [address] [facility] [phone] 12/25/2023 Dear Mr. Jerad Swartz This is a short note in follow up on our telephone call. You will recall you had a follow up biopsyfor prostate cancer that we are watching on Active Surveillance. Your PSA renains stable at 4.5 . On rectal exam I found that your prostate was unchanged and felt normal. As you will recall we performed a transrectal ultrasound and prostate biopsy. The biopsy found no prostate cancer. Attached below is an excerpt from your pathology report [facility] Ultrasound at [facility] [phone] Fax: Jerad Swartz : [phone] [place] [address] Sex: Britney [phone] Results: Surgical Pathology, Prostate Biopsies Status: Final result (Collected: 12/18/2023 10:56) 12/21/2023 1:41 PM - Lukas Rocha MD Component Value Flag Ref Range Units Status Case Report Final Surgical Pathology Report Case: [id number] Authorizing Provider: Roc Plummer MD Collected: 12/18/2023 1056 Ordering Location[place] [facility] [place] Received: 12/18/2023 1407 Pathologist: Lukas Rocha MD Specimens: A) - Prostate, Right Lateral Base B) - Prostate, Right Lateral Mid C) - Prostate, Right Lateral [place] D) - Prostate, Right Medial Base E) - Prostate, Right Medial Mid F) - Prostate, Right Medial [place] G) - Prostate, Left Lateral Base H) - Prostate, Left Lateral Mid I) - Prostate, Left Lateral [place] J) - Prostate, Left Medial Base K) - Prostate, Left Medial Mid L) - Prostate, Left Medial [place] Final Diagnosis Final A. Prostate, Right Lateral Base, Biopsy: - Benign stromal tissue. B. Prostate, Right Lateral Mid, Biopsy: - Benign prostatic tissue with mild acute and chronic inflammation. C. Prostate, Right Lateral [place], Biopsy: - Benign prostatic tissue. D. Prostate, Right Medial Base, Biopsy: - Benign prostatic tissue with mild acute and chronic inflammation. E. Prostate, Right Medial Mid, Biopsy: - Benign prostatic tissue with mild acute and chronic inflammation. F. Prostate, Right Medial [place], Biopsy: - Benign prostatic tissue. G. Prostate, Left Lateral Base, Biopsy: - Benign prostatic tissue with mild acute and chronic inflammation. H. Prostate, Left Lateral Mid, Biopsy: - Benign prostatic tissue with mild acute and chronic inflammation. I. Prostate, Left Lateral [place], Biopsy: - Benign prostatic tissue with mild acute and chronic inflammation. J. Prostate, Left Medial Base, Biopsy: - Benign prostatic tissue. K. Prostate, Left Medial Mid, Biopsy: - Benign prostatic tissue with mild acute and chronic inflammation. L. Prostate, Left Medial [place], Biopsy: - Benign prostatic tissue. The stage of your prostate cancer remains [id number] and your Dore[place] score remains 3+3=6 (Grade Group1). As we discussed I think it is reasonable to continue with Active surveillance. We should see you in6 months for a PSA and prostate examination. In the meantime if you have any questions or do not hear about a follow up appointment please contact my office at . Yours Sincerely, Madi Rodas. documented in this encounter Plan of Treatment Upcoming Encounters Date Type Department Care Team (Late st Contact Info) Description 05/21/2024 8:00 AM EST Procedure visit [place] [address] Diony Huang MD [facility] [place] [address] 07/05/2024 9:00 AM EST Laboratory Appointment Lab [address] [place] [phone] 07/05/2024 10:00 AM EST Office [place] [phone] Talisha Nino APRN [facility] [place] [address] Scheduled Orders Name Type Priority Associated Diagnoses Orde r Schedule PSA (Ultrasensitive) Lab STAT Malignant neoplasm of prostate Expected: 06/26/2024 (Approximate), Expires: 12/24/2024 documented as of this encounter Visit Diagnoses Diagnosis Malignant neoplasm of prostate- Primary Malignant neoplasm of prostate metastatic to bone Malignant neoplasm of prostate documented in this encounter Care Teams Supercharger Mechanic Relationship Specialty Start Date End Date Jaz Sy MD [address] [place] [id number] PCP - General Family Medicine 12/18/23 documented as of this encounter
--- OUTSIDE RECORDS SUMMARY | 2024-02-26 16:32 | XMS_ITS | Encounter Summary ---
Author Organization [facility] [place] [address] Care Team Providers Care Integration Developer Name Role Phone Roc Alvarado MD Primary Care Provider [phone] Encounter Details Date Type Department Care Team (Latest Contact Info) Description 11/25/2023 Travel Social History Tobacco Use Types Packs/Day Years Used Date Smoking Tobacco: Former Cigarettes Cigars Smokeless Tobacco: Never Comments:QUIT at age 31 - Sm oked for approx 15 years and varied for PPD Sex and Gender Information Value Date Recorded Sex Assigned at Not on file Gender Identity Not on file Sexual Orientation Not on file documented as of this encounter Plan of Treatment Upcoming Encounters Date Type Department Care Team (Late st Contact Info) Description 05/21/2024 8:00 AM EST Procedure [place] [phone] Diony Huang MD [facility] [place] [address] 07/05/2024 9:00 AM EST Laboratory Appointment Lab [address] [place] [phone] 07/05/2024 10:00 AM EST [place] [address] Talisha Nino APRN [facility] [place] [address] documented as of this encounter Visit Diagnoses Not on filedocumented in this encounter Care Teams Integration Developer Relationship Specialty Start Date End Date Roc Alvarado MD PCP - General Family Medicine 03/02/20 12/17/23 documented as of this encounter
--- OUTSIDE RECORDS SUMMARY | 2024-02-26 16:32 | XMS_ITS | Clinical Summary ---
Author Organization [facility] Address [facility] Rachel hern[address]dez [place] [address] Care Team Providers Care Hand Ii Tube Bender Name Role Phone Jaz Sy MD Primary Care Provider [phone] Allergies No known active allergies Medications Medication Sig Dispensed Refills Start Date End Date Status tamsulosin (Flomax) 0.4 mg Capsule Take 0.4 mg by mouth daily. Active albuterol sulfate (VENTOLIN HFA INHL) Inhale into the lungs as needed. Active buPROPion XL (Wellbutrin XL) 150 mg Tablet Extended Release 24 hr Take 150 mg by mouth every morning. Active carboxymethylcellulos e sodium (ARTIFICIAL TEARS, CMC, OPHT) Apply to eye. Acti ve tadalafiL (Cialis) 20 mg Tablet Take 1 tablet by mouth every 48 hours as needed. 10 tablet 03/20/2020 Active cetirizine (ZyrTEC) 10 mg Tablet Take 10 mg by mouth daily. Active losartan (Cozaar) 25 mg Tablet Take 25 mg by mouth daily. 08/25/2021 Active atorvastatin (Lipitor) 20 mg tablet Take 20 mg by mouth daily. Active olmesartan (Benicar) 40 mg tablet Take 20 mg by mouth daily. Active Active Problems Problem Noted Date Diagnosed Date Bilateral leg weakness 11/10/2022 Encounters Date Type Department Care Team Description 12/25/2023 [place] [address] Amanda Plummer MD 12/18/2023 10:00 AM EDT - 12/18/2023 11:59 PM EDT Hospital [place] [address] Amanda Plummer MD Elevated PSA Discharge Disposition: Home 12/18/2023 9:00 AM EDT [place] [address] Amanda Plummer MD Elevated PSA 12/17/2023 Travel 11/27/2023 10:15 AM EDT Laboratory Appointment Lab [address] [place] [address] Malignant neoplasm of prostate 11/27/2023 9:30 AM EDT [place] [address] Amanda Plummer MD Malignant neoplasm of prostate (Primary Dx) 11/27/2023 Travel from Last 3 Months Social History Tobacco Use Types Packs/Day Years Used Date Smoking Tobacco: Former Cigarettes Cigars Smokeless Tobacco: Never Tobacco Cessation:Counseling Given: Not Answered Comments:QUIT at age 31 - Smoked for approx 15 years and varied for PPD Sex and Gender Information Value Date Recorded Sex Assigned at Not on file Gender Identity Not on file Sexual Orientation Not on file Last Filed Vital Signs Vital Sign Reading Time Taken Comments Blood Pressure 113/69 12/18/2023 8:40 AM EDT Pulse 65 12/18/2023 8:40 AM EDT Temperature 36.6 ??C (97.9 ??F) 08/03/2020 7:52 AM ED T Respiratory Rate 18 08/03/2020 7:52 AM EDT Oxygen Saturation 97% 12/18/2023 8:40 AM EDT Inhaled Oxygen Concentration - - Weight 79.4 kg (175 lb) 12/18/2023 8:40 AM EDT Height 170 cm (5' 6.93) 12/18/2023 8:40 AM EDT Body Mass Index 27.47 12/18/2023 8:40 AM EDT Plan of Treatment Upcoming Encounters Date Type Department Care Team (Late st Contact Info) Description 05/21/2024 8:00 AM EST Procedure [place] [phone] Diony Huang MD [facility] [place] [address] 07/05/2024 9:00 AM EST Laboratory Appointment Lab [address] [place] [phone] 07/05/2024 10:00 AM [place] [phone] Talisha Nino APRN [facility] [place] [address] Health Maintenance Due Date Last Done Comments CT Colonography 1956 Colonoscopy 1956 Colorectal Cancer Screening 1956 FIT DNA 1956 FIT 1956 Sigmoidoscopy (10 year) with FIT yearly 1956 Sigmoidoscopy 1956 Hepatitis C Screening 1974 Tetanus/Diphtheria/Pertussis Vaccines (1 - Tdap) 07/14 Diabetes Screening (HgbA1C or Glucose) 1996 Zoster vaccine (1 of 2) 2006 Advance Directive 07/15/2011 AAA Screen 2021 Pneumoccocal Vaccine: 65+ (1 of 1 - PCV) 2021 Covid-19 Vaccine (1 - season) 2024 Influenza (Flu) vaccine (1 o f 1 - Influenza standard series) 01/14/2024 Procedures Procedure Name Priority Date/Time Associated Diagnosis Comments US GUIDED BIOPSY PROSTATE ([place] ONLY) Routine 12/18/2023 10:56 AM EDT Elevated PSA SURGICAL PATHOLOGY, PROSTATE BIOPSIES Routine 12/18/2023 10:56 AM EDT MISC ARUP TEST Routine 11/27/2023 2:40 PM EDT MISCELLANEOUS LAB REQUEST Routine 11/27/2023 2:40 PM EDT Malignant neoplasm of prostate PSA (ULTRASENSITIVE) STAT 11/27/2023 10:19 AM EDT Malignant neoplasm of prostate from Last 3 Months Results * US Guided Biopsy Prostate ([place] ONLY) (12/18/2023 10:56 AM EDT) WORKSTATION ID [id number] RAD Anatomical Region Laterality Modality Pelvis Ultrasound 12/18/2023 10:5 3 AM EDT Impressions 12/18/2023 2:12 PM EDT Prostate Summary Transrectal ultrasound of the prostate was performed. Hypoechoic areas seen bilaterally - Left Medial Base/mid, Right lateral mid/apex. Ultrasound guidance was provided for Dr. Plummer of the section of Urology who performed multiple biopsies in the [address] [place] [address] location. Please see above. Thank you for letting us participate in the care of this patient. If you are a health care provider and have any questions regarding this report, please contact the number above. For patients who have questions, please contact the health child care attendant school that requested your imaging first. ?Roberto Crystal, Staff Physician Electronically Signed Final Report ?? 12/18/2023 02:12 pm Narrative 12/18/2023 2:12 PM EDT Male Pelvis ? (Signed Final 12/18/2023 02:12 pm) PATIENT INFO: ID #: ? [id number] ?: ??[birth year] (68 yrs)(M) Name: ? ARMANDOBritney SWARTZ ? Visit Date: 12/18/2023 10:53 am PERFORMED BY: Attending: ?Roberto Crystal MD. Performed By: ? Davian Da Silva RDMS Referred By: ?AMANDA PLUMMER Location: ? [place] SERVICE(S) PROVIDED: UTRBX - Prostate Biopsy - [id number] ?[id number], [id number] INDICATIONS: Elevated PSA TECHNIQUE/SCAN QUALITY: Technique: ?Transducer [...] 12/18/2023 02:12 pm) PATIENT INFO: ID #: [id number] : 57 (68 yrs)(M) Name: JERAD SWARTZ Visit Date: 12/18/2023 10:53 am PERFORMED BY: Attending: Roberto Crystal MD Performed By: Davian Da Silva RDMS Referred By: AMANDA PLUMMER Location: [place] SERVICE(S) PROVIDED: UTRBX - Prostate Biopsy - [id number], [id number] INDICATIONS: Elevated PSA TECHNIQUE/SCAN QUALITY: Technique: Transducer [...] Urology who performed multiple biopsies in the [address] [place] [address] location. Please see above. Electronically signed by: Roberto Crystal MD, [facility] ([phone]), at 12/18/2023 2:06 PM Thank you for letting us participate in the care of this patient. If you are a health care provider and have any questions regarding this report, please contact the number above. For patients who have questions, please contact the health child care attendant school that requested your imaging first. Roberto Crystal, Staff Physician Electronically Signed Final Report 12/18/2023 02:12 pm Amanda Plummer MD IMG US PROC ORDERABL ES * Surgical Pathology, Prostate Biopsies (12/18/2023 10:56 AM EDT) Case Report Surgical Pathology Report ? Case: [id number] ? Authorizing Provider: ??Amanda Plummer MD ? Collected: ? 12/18/2023 1056 ? Ordering Location: ? [place] [facility] [place] Received: ?12/18/2023 1407 ? Pathologist: ? Lukas Rocha MD ? Specimens: ?? A) - Prostate, Right Lateral Base ? B) - Prostate, Right Lateral Mid ? C) - Prostate, Right Lateral Kountze ? D) - Prostate, Right Medial Base ? E) - Prostate, Right Medial Mid ? F) - Prostate, Right Medial Kountze ? G) - Prostate, Left Lateral Base ? H) - Prostate, Left Lateral Mid ? I) - Prostate, Left Lateral Kountze ? J) - Prostate, Left Medial Base ? K) - Prostate, Left Medial Mid ? L) - Prostate, Left Medial Kountze ? 12/21/2023 1:41 PM EDT [facility] Final Diagnosis A. Prostate, Right Lateral Base, Biopsy: - Benign stromal tissue. B. Prostate, Right Lateral Mid, Biopsy: - Benign prostatic tissue with mild acute and chronic inflammation. C. Prostate, Right Lateral Kountze, Biopsy: - Benign prostatic tissue. D. Prostate, Right Medial Base, Biopsy: - Benign prostatic tissue with mild acute and chronic inflammation. E. Prostate, Right Medial Mid, Biopsy: - Benign prostatic tissue with mild acute and chronic inflammation. F. Prostate, Right Medial Kountze, Biopsy: - Benign prostatic tissue. G. Prostate, Left Lateral Base, Biopsy: - Benign prostatic tissue with mild acute and chronic inflammation. H. Prostate, Left Lateral Mid, Biopsy: - Benign prostatic tissue with mild acute and chronic inflammation. I. Prostate, Left Lateral Kountze, Biopsy: - Benign prostatic tissue with mild acute and chronic inflammation. J. Prostate, Left Medial Base, Biopsy: - Benign prostatic tissue. K. Prostate, Left Medial Mid, Biopsy: - Benign prostatic tissue with mild acute and chronic inflammation. L. Prostate, Left Medial Kountze, Biopsy: - Benign prostatic tissue. 12/21/2023 1:41 PM EDT [facility] Clinical Information Elevated PSA 12/21/2023 1:41 PM EDT [facility] Gross Description A. Prostate, Right Lateral Base. Labeled/Fixat stacey: Prostate right lateral base, formalin. Quantity/Size : Single, 1.7 x 0.1 cm Tissue Description: Gunter needle core biopsy. Sections/Proc essing: Entirely submitted in 1 cassette labeled A1. B. Prostate, Right Lateral Mid. Labeled/Fixat stacey: Prostate right lateral mid, formalin. Quantity/Size : Single, 0.9 x 0.1 cm Tissue Description: Gunter-pink needle core biopsy. Sections/Proc essing: Entirely submitted in 1 cassette labeled B1. C. Prostate, Right Lateral Kountze. Labeled/Fixat stacey: Prostate right lateral apex, formalin. Quantity/Size : Single, 0.8 x 0.1 cm Tissue Description: Gunter-pink needle core biopsy. Sections/Proc essing: Entirely submitted in 1 cassette labeled C1. D. Prostate, Right Medial Base. Labeled/Fixat stacey: Prostate right base, formalin. Quantity/Size : Single, 1.8 x 0.1 cm Tissue Description: Gunter needle core biopsy. Sections/Proc essing: Entirely submitted in 1 cassette labeled D1. E. Prostate, Right Medial Mid. Labeled/Fixat stacey: Prostate right mid, formalin. Quantity/Size : Single, 1.5 x 0.1 cm Tissue Description: Gunter needle core biopsy. Sections/Proc essing: Entirely submitted in 1 cassette labeled E1. F. Prostate, Right Medial Kountze. Labeled/Fixat stacey: Prostate right apex, formalin. Quantity/Size : Single, 1.3 x 0.1 cm Tissue Description: Gunter-pink needle core biopsy. Sections/Proc essing: Entirely submitted in 1 cassette labeled F1. G. Prostate, Left Lateral Base. Labeled/Fixat stacey: Prostate left lateral base, formalin. Quantity/Size : Single, 1.6 x 0.1 cm Tissue Description: Yellow-gunter needle core biopsy. Sections/Proc essing: Entirely submitted in 1 cassette labeled G1. H. Prostate, Left Lateral Mid. Labeled/Fixat stacey: Prostate left lateral mid, formalin. Quantity/Size : Single, 1.5 x 0.1 cm Tissue Description: Gunter-pink needle core biopsy. Sections/Proc essing: Entirely submitted in 1 cassette labeled H1. I. Prostate, Left Lateral Kountze. Labeled/Fixat stacey: Prostate left lateral apex, formalin. Quantity/Size : Single, 1.5 x 0.1 cm Tissue Description: Gunter needle core biopsy. Sections/Proc essing: Entirely submitted in 1 cassette labeled I1. J. Prostate, Left Medial Base. Labeled/Fixat stacey: Prostate left base, formalin. Quantity/Size : Single, 1.8 x 0.1 cm Tissue Description: Gunter needle core biopsy. Sections/Proc essing: Entirely submitted in 1 cassette labeled J1. K. Prostate, Left Medial Mid. Labeled/Fixat stacey: Prostate left mid, formalin. Quantity/Size : Single, 1.6 x 0.1 cm Tissue Description: Gunter needle core biopsy. Sections/Proc essing: Entirely submitted in 1 cassette labeled K1. L. Prostate, Left Medial Kountze. Labeled/Fixat stacey: Prostate left apex, formalin. Quantity/Size : Single, 1.1 x 0.1 cm Tissue Description: Gunter needle core biopsy. Sections/Proc essing: Entirely submitted in 1 cassette labeled L1. 12/21/2023 1:41 PM EDT [facility] Result Note Routine 12/21/2023 1:41 PM EDT [facility] Tissue LEFT POSTERIOR APICAL PART OF TRANSITION ZONE OF PROSTATE / Unknown Non Blood Collection / Unknown 12/18/2023 10:56 AM EDT 12/18/2023 2:07 PM EDT Tissue specimen (specimen) RIGHT LATERAL MIDDLE PERIPHERAL ZONE OF PROSTATE / Unknown 12/18/2023 10:56 AM EDT 12/18/2023 2:07 PM EDT Tissue specimen (specimen) STRUCTURE OF APEX OF PROSTATE / Unknown 12/18/2023 10:56 AM EDT 12/18/2023 2:07 PM EDT Tissue specimen (specimen) RIGHT POSTERIOR BASAL TRANSITION ZONE OF PROSTATE / Unknown 12/18/2023 10:56 AM EDT 12/18/2023 2:07 PM EDT Tissue specimen (specimen) RIGHT POSTERIOR MIDDLE TRANSITION ZONE OF PROSTATE / Unknown 12/18/2023 10:56 AM EDT 12/18/2023 2:07 PM EDT Tissue specimen (specimen) RIGHT POSTERIOR APICAL PART OF TRANSITION ZONE OF PROSTATE / Unknown 12/18/2023 10:56 AM EDT 12/18/2023 2:07 PM EDT Tissue specimen (specimen) STRUCTURE OF LEFT LATERAL LOBE OF PROSTATE / Unknown 12/18/2023 10:56 AM EDT 12/18/2023 2:07 PM EDT Tissue specimen (specimen) STRUCTURE OF LEFT LATERAL LOBE OF PROSTATE / Unknown 12/18/2023 10:56 AM EDT 12/18/2023 2:07 PM EDT Tissue specimen (specimen) STRUCTURE OF LEFT LATERAL LOBE OF PROSTATE / Unknown 12/18/2023 10:56 AM EDT 12/18/2023 2:07 PM EDT Tissue specimen (specimen) LEFT POSTERIOR BASAL TRANSITION ZONE OF PROSTATE / Unknown 12/18/2023 10:56 AM EDT 12/18/2023 2:07 PM EDT Tissue specimen (specimen) LEFT POSTERIOR MIDDLE TRANSITION ZONE OF PROSTATE / Unknown 12/18/2023 10:56 AM EDT 12/18/2023 2:07 PM EDT Tissue specimen (specimen) LEFT POSTERIOR APICAL PART OF TRANSITION ZONE OF PROSTATE / Unknown 12/18/2023 10:56 AM EDT 12/18/2023 2:07 PM EDT Amanda Plummer MD PATHOLOGY/CYTOLOGY O RDERABLES [facility] [place] [address] * [facility] [place] [facility] Test (11/27/2023 2:40 PM EDT) ARUP Test [id number] [facility] SEE NOTE [facility] Comment: Test name ? Result Flag Units ??RefIntvl Final Report ?SEE NOTE Culture negative for fluoroquinolone-resistant organisms This test is not intended for screening donor material. Performed By: [employer] [address] [place] [id number] Buncher Operator: David Haynes MD, PhD CLIA Number: [id number] Other Other / Unknown 11/27/2023 2 :40 PM EDT 11/28/2023 10:55 AM EDT Amanda Plummer MD LAB SEND OUT ORDERAB LES Performing Organization Address [facility] Co de Phone Number [facility] [place] [address] * Miscellaneous Lab request (11/27/2023 2:40 PM EDT) Label Request received in lab. [facility] Stool 11/27/2023 2:40 PM EDT 11/27/2023 5:25 PM EDT Narrative Resulting Agency Comment Spec In Lab Amanda Plummer MD LAB SEND OUT ORDERAB LES Performing Organization Address [facility] de Phone Number [facility] [place] [address] * (ABNORMAL) PSA (Ultrasensitive) (11/27/2023 10:19 AM EDT) Prostate Specific Antigen (Ultrasensitive) 4.50(H) 0.00 - 4.00 ng/mL [facility] Comment: PLEASE NOTE: The above reference interval is intended for healthy males with an intact prostate. Values within this reference interval may indicate recurrence in men who have undergone radical prostatectomy. This result was generated using a Joanna Jenny immunoassay. ??Results obtained from other methods or manufacturers cannot be used interchangeably with this method. Blood 11/27/2023 10:1 9 AM EDT 11/27/2023 10:26 AM EDT Narrative Resulting Agency Comment Spec In Lab Amanda Plummer MD CHEMISTRY ORDERABLES [facility] [place] [address] from Last 3 Months Care Teams Hand Ii Tube Bender Relationship Specialty Start Date End Date Jaz Sy MD [address] [place], [place] [address] PCP - General Family Medicine 12/18/23
--- OUTSIDE RECORDS SUMMARY | 2024-02-26 16:32 | XMS_ITS | Encounter Summary ---
[place] [address] Care Team Providers Care Flight Communications Specialist Name Role Phone Roc Alvarado MD Primary Care Provider [phone] Encounter Details Date Type Department Care Team (Latest Contact Info) Description 11/27/2023 10:15 AM EDT Laboratory Appointment Lab [address] [place] [phone] Malignant neoplasm of prostate Social History Tobacco Use Types Packs/Day Years [...] AM EST Procedure [place] [phone] Diony Huang MD [facility] [place] [address] 07/05/2024 9:00 AM EST Laboratory Appointment Lab [address] [place] [phone] 07/05/2024 10:00 AM EST [place] [phone] Talisha Nino APRN [facility] [place] [address] documented as of this encounter Procedures Procedure Name Priority Date/Time Associated Diagnosis Comments PSA (ULTRASENSITIVE) STAT 11/27/2023 10:19 AM EDT Malignant neoplasm of prostate documented in this encounter Results * (ABNORMAL) PSA (Ultrasensitive) (11/27/2023 10:19 AM EDT) Prostate Specific Antigen (Ultrasensitive) 4.50(H) 0.00 - 4.00 ng/mL [facility] Comment: PLEASE NOTE: The above reference [...] Narrative Resulting Agency Comment Spec In Lab Roc Plummer MD CHEMISTRY ORDERABLES [facility] [place] [address] documented in this encounter Visit Diagnoses Diagnosis Malignant neoplasm of prostate documented in this encounter Care Teams Flight Communications Specialist Relationship Specialty Start Date End Date Roc Alvarado MD PCP - General Family Medicine 03/02/20 12/17/23 documented as of this encounter
--- OUTSIDE RECORDS SUMMARY | 2024-02-26 16:32 | XMS_ITS | Encounter Summary ---
Author Organization [facility] Address [facility] Rachel hern[address] [place] [address] Care Team Providers Care Painter Rough Name Role Phone Roc Alvarado MD Primary Care Provider [phone] Encounter Details Date Type Department Care Team (Late st Contact Info) Description 11/27/2023 9:30 AM EDT Office [place] [phone] Roc Plummer MD [facility] [place] [address] Malignant neoplasm of prostate (Primary Dx) Social History Tobacco Use Types Packs/Day Years Used Date Smoking Tobacco: Former Cigarettes Cigars Smokeless Tobacco: Never Comments:QUIT at age 31 - Sm oked for approx 15 years and varied for PPD Sex and Gender Information Value Date Recorded Sex Assigned at Not on file Gender Identity Not on file Sexual Orientation Not on file documented as of this encounter Progress Notes * Calvin Doyle RN - 11/27/2023 9:30 AM EDT Patient presents to clinic to provide sample for rectal swab to test for fluoroquinolone resistant organisms prior to prostate biopsy. Specimen obtained and sent to lab for analysis. Calvin Doyle LPN documented in this encounter Plan of Treatment Upcoming Encounters Date Type Department Care Team (Late st Contact Info) Description 05/21/2024 8:00 AM EST Procedure visit [place] [phone] Diony Huang MD [facility] [place] [address] 07/05/2024 9:00 AM EST Laboratory Appointment Lab [address] [place] [phone] 07/05/2024 10:00 AM EST Office [place] [address] Talisha Nino APRN [facility] [place] [address] documented as of this encounter Procedures Procedure Name Priority Date/Time Associated Diagnosis Comments MISC [place] TEST Routine 11/27/2023 2:40 PM EDT MISCELLANEOUS LAB REQUEST Routine 11/27/2023 2:40 PM EDT Malignant neoplasm of prostate documented in this encounter Results * Misc [facility] Test (11/27/2023 2:40 PM EDT) [facility] Test [id number] [facility] SEE NOTE [facility] Comment: Test name ? Result Flag Units ??RefIntvl Final Report ?SEE NOTE Culture negative for fluoroquinolone-resistant organisms This test is not intended for screening donor material. Performed By: [employer] [address] [place] [id number] Lobsterman: David Haynes MD, PhD CLIA Number: [id number] Other Other / Unknown 11/27/2023 2 :40 PM EDT 11/28/2023 10:55 AM EDT Roc Plummer MD LAB SEND OUT ORDERAB LES Performing Organization Address City/[facility]/ZIP Co de Phone Number [facility] [place] [address] * Miscellaneous Lab request (11/27/2023 2:40 PM EDT) Label Request received in lab. [facility] Stool 11/27/2023 2:40 PM EDT 11/27/2023 5:25 PM EDT Narrative Resulting Agency Comment Spec In Lab Roc Plummer MD LAB SEND OUT ORDERAB LES Performing Organization Address City/[facility] Co de Phone Number [facility] [place] [address] documented in this encounter Visit Diagnoses Diagnosis Malignant neoplasm of prostate- Primary documented in this encounter Care Teams Painter Rough Relationship Specialty Start Date End Date Roc Alvarado MD PCP - General Family Medicine 03/02/20 12/17/23 documented as of this encounter
--- OUTSIDE RECORDS SUMMARY | 2024-02-26 16:32 | XMS_ITS | Encounter Summary ---
Author Organization [facility] [place] [address] Care Team Providers Care Delivery Crew Member Name Role Phone Roc Alvarado MD Primary Care Provider Encounter Details Date Type Department Care Team (Latest Contact Info) Description 12/17/2023 Travel Social History Tobacco Use Types Packs/Day [...] AM EST Procedure visit [place] [phone] Diony Huang MD [facility] [place] [address] 07/05/2024 9:00 AM EST Laboratory Appointment Lab [address] [place] [phone] 07/05/2024 10:00 AM EST Office [place] [address] Talisha Nino APRN [facility] [place] [address] documented as of this encounter Visit Diagnoses Not on filedocumented in this encounter Care Teams Delivery Crew Member Relationship Specialty Start Date End Date oRc Alvarado MD PCP - General Family Medicine 03/02/20 12/17/23 documented as of this encounter
--- OUTSIDE RECORDS SUMMARY | 2024-02-26 16:32 | XMS_ITS | Encounter Summary ---
Author Organization [facility] Address [facility] [place] [address] Care Team Providers Care Stone Circular Sawyer Name Role Phone Jaz Sy MD Primary Care Provider [phone] Encounter Details Date Type Department Care Team (Latest Contact Info) Description 12/18/2023 10:00 AM EDT - 12/18/2023 11:59 PM EDT Hospital [place] [address] Amanda Plummer MD [facility] [place] [address] Elevated PSA Discharge Disposition: Home Social History Tobacco Use Types Packs/Day Years Used Date Smoking Tobacco: Former Cigarettes Cigars Smokeless Tobacco: Never Comments:QUIT at age 31 - Sm oked for approx 15 years and varied for PPD Sex and Gender Information Value Date Recorded Sex Assigned at Not on file Gender Identity Not on file Sexual Orientation Not on file documented as of this encounter Medications at Time of Discharge Medication Sig Dispensed Refills Start Date End Date atorvastatin (Lipitor) 20 mg tablet Take 20 mg by mouth daily. olmesartan (Benicar) 40 mg tablet Take 20 mg by mouth daily. losartan (Cozaar) 25 mg Tablet Take 25 mg by mouth daily. 08/25/2021 cetirizine (ZyrTEC) 10 mg Tablet Take 10 mg by mouth daily. tamsulosin (Flomax) 0.4 mg Capsule Take 0.4 mg by mouth daily. albuterol sulfate (VENTOLIN HFA INHL) Inhale into the lungs as needed. buPROPion XL (Wellbutrin XL) 150 mg Tablet Extended Release 24 hr Take 150 mg by mouth every morning. carboxymethylcellulose sodium (ARTIFICIAL TEARS, CMC, OPHT) Apply to eye. tadalafiL (Cialis) 20 mg Tablet Take 1 tablet by mouth every 48 hours as needed. 10 tablet 03/20/2020 documented as of this encounter Plan of Treatment Upcoming Encounters Date Type Department Care Team (Late st Contact Info) Description 05/21/2024 8:00 AM EST Procedure [place] [phone] Diony Huang MD [facility] [place] [address] 07/05/2024 9:00 AM EST Laboratory Appointment Lab [address] [place] [phone] 07/05/2024 10:00 AM EST [place] [phone] Talisha Nino APRN [facility] [place] [address] documented as of this encounter Procedures Procedure Name Priority Date/Time Associated Diagnosis Comments US GUIDED BIOPSY PROSTATE ([place] ONLY) Routine 12/18/2023 10:56 AM EDT Elevated PSA SURGICAL PATHOLOGY, PROSTATE BIOPSIES Routine 12/18/2023 10:56 AM EDT documented in this encounter Results * US Guided Biopsy Prostate ([place] ONLY) (12/18/2023 10:56 AM EDT) WORKSTATION ID [id number] RAD Anatomical Region Laterality Modality Pelvis Ultrasound 12/18/2023 10:5 3 AM EDT Impressions 12/18/2023 2:12 PM EDT Prostate Summary Transrectal ultrasound of the prostate was performed. Hypoechoic areas seen bilaterally - Left Medial Base/mid, Right lateral mid/apex. Ultrasound guidance was provided for Dr. Plummer of the section of Urology who performed multiple biopsies in the [address] [place] [address] location. Please see above. Electronically signed by: Roberto Crystal MD, [facility] ([phone]), at 12/18/2023 2:06 PM Thank you for letting us participate in the care of this patient. If you are a health care provider and have any questions regarding this report, please contact the number above. For patients who have questions, please contact the health career guidance technician that requested your imaging first. ?Roberto Crystal, Staff Physician Electronically Signed Final Report ?? 12/18/2023 02:12 pm Narrative 12/18/2023 2:12 PM EDT Male Pelvis ? (Signed Final 12/18/2023 02:12 pm) PATIENT INFO: ID #: ? [id number] ?: ??[birth year] (68 yrs)(M) Name: ? JERAD SWARTZ ? Visit Date: 12/18/2023 10:53 am PERFORMED BY: Attending: ?Marah COLORADO, Roberto Metz Performed By: ? Davian Da Silva RDMS Referred By: ?AMANDA PLUMMER Location: ? [place] SERVICE(S) PROVIDED: UTRBX - Prostate Biopsy - [id number] ?[id number], [id number] INDICATIONS: Elevated PSA TECHNIQUE/SCAN QUALITY: Technique: ?Transducer [...] 12/18/2023 02:12 pm) PATIENT INFO: ID #: [id number] : [birth year] (68 yrs)(M) Name: JERAD SWARTZ Visit Date: 12/18/2023 10:53 am PERFORMED BY: Attending: Roberto Crystal MD Performed By: Davian Da Silva RDMS Referred By: AMANDA PLUMMER Location: [place] SERVICE(S) PROVIDED: UTRBX - Prostate Biopsy - [id number], [id number] INDICATIONS: Elevated PSA TECHNIQUE/SCAN QUALITY: Technique: Transducer [...] Urology who performed multiple biopsies in the [address] [place] [address] location. Please see above. Electronically signed by: Roberto Crystal MD, [facility] ([phone]), at 12/18/2023 2:06 PM Thank you for letting us participate in the care of this patient. If you are a health care provider and have any questions regarding this report, please contact the number above. For patients who have questions, please contact the health career guidance technician that requested your imaging first. Roberto Crystal, Staff Physician Electronically Signed Final Report 12/18/2023 02:12 pm Amanda Plummer MD [facility] PROC ORDERABL ES * Surgical Pathology, Prostate Biopsies (12/18/2023 10:56 AM EDT) Case Report Surgical Pathology Report ? Case: [id number] ? Authorizing Provider: ??Amanda Plummer MD ? Collected: ? 12/18/2023 1056 ? Ordering Location: ? Ultrasound at [facility] ? Received: ?12/18/2023 1407 ? Pathologist: ? Lukas Rocha MD ? Specimens: ?? A) - Prostate, Right Lateral Base ? B) - Prostate, Right Lateral Mid ? C) - Prostate, Right Lateral [place] ? D) - Prostate, Right Medial Base ? E) - Prostate, Right Medial Mid ? F) - Prostate, Right Medial [place] ? G) - Prostate, Left Lateral Base ? H) - Prostate, Left Lateral Mid ? I) - Prostate, Left Lateral [place] ? J) - Prostate, Left Medial Base ? K) - Prostate, Left Medial Mid ? L) - Prostate, Left Medial [place] ? 12/21/2023 1:41 PM EDT [facility] Final Diagnosis A. Prostate, Right Lateral Base, Biopsy: - Benign stromal tissue. B. Prostate, Right Lateral Mid, Biopsy: - Benign prostatic tissue with mild acute and chronic inflammation. C. Prostate, Right Lateral [place], Biopsy: - Benign prostatic tissue. D. Prostate, Right Medial Base, Biopsy: - Benign prostatic tissue with mild acute and chronic inflammation. E. Prostate, Right Medial Mid, Biopsy: - Benign prostatic tissue with mild acute and chronic inflammation. F. Prostate, Right Medial [place], Biopsy: - Benign prostatic tissue. G. Prostate, Left Lateral Base, Biopsy: - Benign prostatic tissue with mild acute and chronic inflammation. H. Prostate, Left Lateral Mid, Biopsy: - Benign prostatic tissue with mild acute and chronic inflammation. I. Prostate, Left Lateral [place], Biopsy: - Benign prostatic tissue with mild acute and chronic inflammation. J. Prostate, Left Medial Base, Biopsy: - Benign prostatic tissue. K. Prostate, Left Medial Mid, Biopsy: - Benign prostatic tissue with mild acute and chronic inflammation. L. Prostate, Left Medial [place], Biopsy: - Benign prostatic tissue. 12/21/2023 1:41 PM EDT [facility] Clinical Information Elevated PSA 12/21/2023 1:41 PM EDT [facility] Gross Description A. Prostate, Right Lateral [...] cassette labeled B1. C. Prostate, Right Lateral [place]. Labeled/Fixat stacey: Prostate right lateral apex, formalin. [...] cassette labeled E1. F. Prostate, Right Medial [place]. Labeled/Fixat stacey: Prostate right apex, formalin. Quantity/Size [...] cassette labeled H1. I. Prostate, Left Lateral [place]. Labeled/Fixat stacey: Prostate left lateral apex, formalin. [...] cassette labeled K1. L. Prostate, Left Medial [place]. Labeled/Fixat stacey: Prostate left apex, formalin. Quantity/Size : Single, 1.1 x 0.1 cm Tissue Description: Gunter needle core biopsy. Sections/Proc essing: Entirely submitted in 1 cassette labeled L1. 12/21/2023 1:41 PM EDT [facility] Result Note Routine 12/21/2023 1:41 PM EDT [facility] Tissue LEFT POSTERIOR APICAL PART OF [...] EDT Amanda Plummer MD PATHOLOGY/[place] [address] documented in this encounter Visit Diagnoses Diagnosis Elevated PSA Elevated prostate specific antigen (PSA) documented in this encounter Care Teams Stone Circular Sawyer Relationship Specialty Start Date End Date Jaz Sy MD [address] [place] [address] PCP - General Family Medicine 12/18/23 documented as of this encounter
--- OUTSIDE RECORDS SUMMARY | 2024-02-26 16:32 | XMS_ITS | Encounter Summary ---
Author Organization [facility] [place] [address] Care Team Providers Care Egg Processor Name Role Phone Roc Alvarado MD Primary Care Provider [phone] Encounter Details Date Type Department Care Team (Latest Contact Info) Description 11/27/2023 Travel Social History Tobacco Use Types Packs/Day [...] AM EST Procedure [place] [phone] Diony Huang MD [facility] [place] [address] 07/05/2024 9:00 AM EST Laboratory Appointment Lab [address] [place] [phone] 07/05/2024 10:00 AM EST [place] [address] Talisha Nino APRN [facility] [place] [address] documented as of this encounter Visit Diagnoses Not on filedocumented in this encounter Care Teams Egg Processor Relationship Specialty Start Date End Date Roc Alvarado MD PCP - General Family Medicine 03/02/20 12/17/23 documented as of this encounter
--- OUTSIDE RECORDS SUMMARY | 2024-02-26 16:33 | XMS_ITS | Encounter Summary ---
[place] [address] Care Team Providers Care Wind Turbine Machinist Name Role Phone Roc Alvarado MD Primary Care Provider [phone] Reason for Referral * Diagnostic Test (Routine) - Closed Specialty Diagnoses / Procedures Referred By Contac t Referred To Contact Radiology Diagnoses Malignant neoplasm of prostate Procedures MRI Pelvis wwo (Prostate) Roc Plummer MD [facility] [address] [place] [address] Referral ID Status Reason Start Date Expiration Date V isits Requested Visits Authorized [id number] Closed Specialty Service Requested 09/26/2023 11/24/2023 1 1 Encounter Details Date Type Department Care Team (Late st Contact Info) Description 05/26/2023 4:40 PM EST Office [place] [phone] Roc Plummer MD [facility] [address] Malignant neoplasm of prostate (Primary Dx) Social [...] Sign Reading Time Taken Comments Blood Pressure 125/78 05/26/2023 4:42 PM EST Pulse 65 05/26/2023 4:42 PM EST Temperature - - Respiratory Rate - - Oxygen Saturation - - Inhaled Oxygen Concentration - - Weight - - Height - - Body Mass Index - - documented in this encounter Progress Notes * Roc Plummer MD - 05/26/2023 4:40 PM EST Patient Name: Jerad Swartz Date of Service: 05/26/2023 Primary Care Provider: Roc Alvarado MD Reason for Visit: Jerad Swartz is a 67 y.o. male who comes for f/u of prostate cancer. He is onActive surveillance The patient had a urologist in [facility]. [facility] ~01/2019 3.8 06/2019 4.0 10/2019 4.2 01/2020 4.4 07/2020 4.91 08/2021 5.11 02/2022 4.7 10/2022 4.85 05/23/2022 3.8 06/2019 Biopsy 16 cores 05/26 suspicious 05/26 <1 % Chester score 3+3=6 07/2020 MR PiRADS 4. No extracapsular disease. Vol 55 07/2020 Biopsy: No clear evidenc of malignancy M - Prostate, fusion directed lesion : Atypical glands are present in 2 of 3 biopsy cores, see discussion. DISCUSSION Part M: In 2 of 3 the biopsy cores, a portion of cores are involved with glands with foamy cytoplasm. Immunostain shows most of the foamy glands with partial or patchy staining for the basal cell and weak cytoplasmic staining for p504S. Rare small foamy glands are lack of basal cell staining which may represent tangential sections, but the possibility of a minute focus of Santhosh score 3 glands can not be entirely excluded. Currently the patient has some variation in his urinating. He has a weak stream with stopping and starting with post void dribbling. He has minimal irritative symptoms with minimal frequencyand nocturia x 1. The bladder is not always emptied completely.He has had low PVR's There is no hematuria. He is on tamsulosin 0.8mg qhs Erectile function is not great great. Not adequate for intercourse. In sufficient strength and duration I prescribed Cialis 20mg in 2020. This works well for him. Appetite is good weight is stable. There is no new bone pain. No changes. IPSS 03/2020 2/4/4/0/5/0/1/ QOL 4 03/2020 2/2/2/2/2 Past Medical History: Asthma (minimal symptomatic) Past Surgical History: 09/2019 Left rotator cuff TKR Bilateral C2-7 Open door procedure. Lumbar disc Tonsils Medications: Reviewed Allergies: Reviewed Family History: There is no family history of Prostate cancer ASCVD and DM runs in the family. Social History: The patient works as a physical therapist. The patient has been for 27 years with 2children. The patient drinks 1 per day Tobacco: None since 20's ~ 10 pack years Systems review: Hikes ~ 2-3 miles/daily [place] weakness or sore ness. All other systems negative. Physical Exam: 05/2023 Prostate is 60 grams and symmetrical without tenderness or masses. A little more prominant at the right apex. Not suspicous seminal vesicals are not palpable. No change Lab values are noted X-rays None Impression: #1: [id number] Grade Group 1 Chester 3+3=6 Very low risk Prostate cancer. On Active Surveillance. No evidence of progression #2: LUTS stable #3: ED Plan: No evidence of progression. COntinue Active surveillance. 6 months PSA, ANABEL, MR and likely biopsy All questions answered. documented in this encounter Plan of Treatment Upcoming Encounters Date Type Department Care Team (Late st Contact Info) Description 05/21/2024 8:00 AM EST Procedure [place] [phone] Diony Huang MD [facility] [place] [address] 07/05/2024 9:00 AM EST Laboratory Appointment Lab [address] [place] [phone] 07/05/2024 10:00 AM EST Office [place] [address] Talisha Nino APRN [facility] [place] [address] documented as of this encounter Results * (ABNORMAL) PSA (Ultrasensitive) (11/27/2023 10:19 AM EDT) [facility] Prostate Specific Antigen (Ultrasensitive) 4.50(H) 0.00 - 4.00 ng/mL [facility] Comment: PLEASE NOTE: The above [...] In Lab Roc Plummer MD CHEMISTRY ORDERABLES [facility] [place] [address] * MRI Pelvis wwo (Prostate) (11/24/2023 10:46 AM EDT) [facility] WORKSTATION ID [id number] RAD Anatomical Region Laterality Modality Pelvis Magnetic Resonan ce Impressions 11/24/2023 4:06 PM EDT No focal lesions. ??BPH. PI-RADS 2. Clinically significant cancer is unlikely to be present. PI-RADS v2.1 Assessment Categories PI-RADS 1 -- Very low (clinically significant cancer is highly unlikely to be present) PI-RADS 2 -- Low (clinically significant cancer is unlikely to be present) PI-RADS 3 -- Intermediate (the presence of clinically significant cancer is equivocal) PI-RADS 4 -- High (clinically significant cancer is likely to be present) PI-RADS 5 -- Very high (clinically significant cancer is highly likely to be present) References: Bandar S1, Eliza JH1, Mcdonough S1, Porter C1, Gonzales J1, Czmaura M1, Gold S1, Moses G1, Rayn K1, Lalo MJ1, Wood BJ1, Charles PA1, Trish PL1, Vamsi B1. ??A Grading System for the Assessment of Risk of Extraprostatic Extension of Prostate Cancer at Multiparametric MRI. Radiology. 2019 Jul;290(3):709-719. doi: 10.1148/radiol.7803044454. Epub 2018Jun 05. Thank you for letting us participate in the care of this patient. ??If you are a health care provider and have any questions regarding this report, please contact the number below. ??For patients who have questions please contact the health aged or disabled carer that requested your imaging first. ? Electronically signed by: Dionisio Henry MD, [facility] ([phone]), at 11/24/2023 4:06 PM Narrative 11/24/2023 4:06 PM EDT EXAMINATION: MRI PELVIS WWO (PROSTATE) CLINICAL HISTORY: Prostate Cancer Active Surveillance. Please identify targets for a Uro veronique bx C61, Malignant neoplasm of prostate REASON FOR PROSTATE EXAM: HAS PATIENT HAD PREVIOUS BIOPSY?: Yes MOST RECENT PSA LEVEL: 3.8 TECHNIQUE: Multiparametric MRI of the prostate prior to and following IV administration of 17 mL of Dotarem contrast. ?? QUALITY: Meets PI-RADS technical criteria. COMPARISON: None FINDINGS: Prostate dimensions: 4 x 4.9 x 5.1cm. Estimated prostate volume: 52cc (X x Y x Z x 0.52) PSA density: 0.07 (PSA/prostate volume >0.15 susp, 0.25 highly susp) Peripheral zone: T2: Slightly heterogenous high signal intensity. No focal lesions. Combined PI-RADs: 1. Transition zone: T2: Typical encapsulated and homogenous circumscribed nodules. No focal lesions Combined PI-RADs: 2. Extraprostatic disease: Seminal vesicle involvement:No Lymphadenopathy:No Sphincter involvement:No Bladder involvement:No Osseous metastases: No MRI-derived Extraprostatic extension risk: N/A Other findings: None. Procedure Note Dionisio Henry MD - 11/24/2023 EXAMINATION: MRI PELVIS WWO (PROSTATE) CLINICAL HISTORY: Prostate Cancer Active Surveillance. Please identifytargets for a Uro veronique bx C61, Malignant neoplasm of prostate REASON FOR PROSTATE EXAM: HAS PATIENT HAD PREVIOUS BIOPSY?: Yes MOST RECENT PSA LEVEL: 3.8 TECHNIQUE: Multiparametric MRI of the prostate prior to and following IV administration of 17 mL of Dotarem contrast. QUALITY: Meets PI-RADS technical criteria. COMPARISON: None FINDINGS: Prostate dimensions: 4 x 4.9 x 5.1cm. Estimated prostate volume: 52cc (X x Y x Z x 0.52) PSA density: 0.07 (PSA/prostate volume >0.15 susp, 0.25 highly susp) Peripheral zone: T2: Slightly heterogenous high signal intensity. No focal lesions. Combined PI-RADs: 1. Transition zone: T2: Typical encapsulated and homogenous circumscribednodules. No focal lesions Combined PI-RADs: 2. Extraprostatic disease: Seminal vesicle involvement:No Lymphadenopathy:No Sphincter involvement:No Bladder involvement:No Osseous metastases: No MRI-derived Extraprostatic extension risk: N/A Other findings: None. IMPRESSION No focal lesions. BPH. PI-RADS 2. Clinically significant cancer isunlikely to be present. PI-RADS v2.1 Assessment Categories PI-RADS 1 -- Very low (clinically significant cancer is highly unlikely jassi present) PI-RADS 2 -- Low (clinically significant cancer is unlikely to bepresent) PI-RADS 3 -- Intermediate (the presence of clinically significant canceris equivocal) PI-RADS 4 -- High (clinically significant cancer is likely to bepresent) PI-RADS 5 -- Very high (clinically significant cancer is highly likely jassi present) References: Mehralinikki S1, Eliza JH1, Mcdonough S1, Porter C1, Gonzales J1, Czarniecki M1,Gold S1, Moses G1, Rayn K1, Lalo MJ1, Wood BJ1, Charles PA1, Trish PL1, Turktato B1.A Grading System for the Assessment of Risk of Extraprostatic Extension of Prostate Cancer at Multiparametric MRI. Radiology. 2019Mar;290(3):709-719. doi: 10.1148/radiol.0161016520. Epub 2018Jun 05. Thank you for letting us participate in the care of this patient. If youare a health care provider and have any questions regarding this report,please contact the number below. For patients who have questions please contactthe health aged or disabled carer that requested your imaging first. Electronically signed by: Dionisio Henry MD, [facility]([phone]), at 11/24/2023 4:06 PM Roc Plummer MD IMG MRI ORDERABLES documented in this encounter Visit Diagnoses Diagnosis Malignant neoplasm of prostate- Primary Malignant neoplasm of prostate documented in this encounter Care Teams Wind Turbine Machinist Relationship Specialty Start Date End Date Roc Alvarado MD PCP - General Family Medicine 03/02/20 12/17/23 documented as of this encounter
--- OUTSIDE RECORDS SUMMARY | 2024-02-26 16:33 | XMS_ITS | Encounter Summary ---
Author Organization [facility] [place] [address] Care Team Providers Care Service Or Work Dispatcher Chief Name Role Phone Roc Alvarado MD Primary Care Provider [phone] Encounter Details Date Type Department Care Team (Latest Contact Info) Description 01/18/2023 Travel Social History Tobacco Use Types Packs/Day [...] AM EST Procedure [place] [phone] Diony Huang MD [facility] [place] [address] 07/05/2024 9:00 AM EST Laboratory Appointment Lab [address] [place] [phone] 07/05/2024 10:00 AM EST Office [place] [address] Talisha Nino APRN [facility] [place] [address] documented as of this encounter Visit Diagnoses Not on filedocumented in this encounter Care Teams Service Or Work Dispatcher Chief Relationship Specialty Start Date End Date Roc Alvarado MD PCP - General Family Medicine 03/02/20 12/17/23 documented as of this encounter
--- OUTSIDE RECORDS SUMMARY | 2024-02-26 16:33 | XMS_ITS | Encounter Summary ---
[place] [address] Care Team Providers Care Accounting Administrative Assistant Name Role Phone Roc Alvarado MD Primary Care Provider [phone] Encounter Details Date Type Department Care Team (Latest Contact Info) Description 10/17/2022 2:50 PM EDT Laboratory Appointment Lab [address] [place] [address]1000 Malignant neoplasm of prostate Social History Tobacco [...] AM EST Procedure [place] [phone] Diony Huang MD [facility] [place] [address] 07/05/2024 9:00 AM EST Laboratory Appointment Lab [address] [place] [phone] 07/05/2024 10:00 AM [place] [phone] Talisha Nino APRN [facility] [place] [address] documented as of this encounter Procedures Procedure Name Priority Date/Time Associated Diagnosis Comments PSA (ULTRASENSITIVE) STAT 10/17/2022 3:00 PM EDT Malignant neoplasm of prostate documented in this encounter Results * (ABNORMAL) PSA (Ultrasensitive) (10/17/2022 3:00 PM EDT) Prostate Specific Antigen (Ultrasensitive) 4.85(H) 0.00 - 4.00 ng/mL [facility] Comment: PLEASE NOTE: The above reference interval is intended for healthy males with an intact prostate. Values within this reference interval may indicate recurrence in men who have undergone radical prostatectomy. This result was generated using a [employer] immunoassay. ??Results obtained from other methods or manufacturers cannot be used interchangeably with this method. Blood 10/17/2022 3:00 PM EDT 10/17/2022 3:09 PM EDT Narrative Resulting Agency Comment Spec In Lab Roc Plummer MD CHEMISTRY ORDERABLES [facility] [address] documented in this encounter Visit Diagnoses Diagnosis Malignant neoplasm of prostate documented in this encounter Care Teams Accounting Administrative Assistant Relationship Specialty Start Date End Date Roc Alvarado MD PCP - General Family Medicine 03/02/20 12/17/23 documented as of this encounter
--- OUTSIDE RECORDS SUMMARY | 2024-02-26 16:33 | XMS_ITS | Referral Summary ---
Author Organization [facility] Address [address] [place] [address] Care Team Providers Care Net Lead Architect Name Role Phone Unavailable Primary Care Provider Unavailabl e Social History Tobacco Use Types Packs/Day Years Used Date Smoking Tobacco: Never Assessed Sex and Gender Information Value Date Recorded Sex Assigned at Not on file Gender Identity Not on file Sexual Orientation Not on file Plan of Treatment Not on file Procedures Procedure Name Priority Date/Time Associated Diagnosis Comments HEPATITIS C AB W REFLEX TO HCV RNA BY PCR Routine 03/03/2021 9:20 EDT from Last 3 Months or Most Recently Relevant to Health Maintenance Results * HEPATITIS C AB W REFLEX TO HCV RNA BY PCR (03/03/2021 9:20 EDT) Hep C Antibody Negative Negative 03/04/2021 10:14 EDT [facility] Blood VENOUS BLOOD / Unknown 03/03/2021 9:20 EDT 03/03/2021 21:02 EDT Provider Outr Resulting Lab CHEMISTRY & BLOOD GAS ORDERABLES [facility] [address] [place] [address] from Last 3 Months or Most Recently Relevant to Health Maintenance
--- OUTSIDE RECORDS SUMMARY | 2024-02-26 16:33 | XMS_ITS | Encounter Summary ---
Author Organization [facility] [address] [place] [address] Care Team Providers Care Food Cashier Name Role Phone Roc Alvarado MD Primary Care Provider [phone] Encounter Details Date Type Department Care Team (Latest Contact Info) Description 04/20/2023 9:45 AM EST Procedure visit Neurology at [facility] [place] [address] Evgeny Betancourt DO Hand weakness [R29.898]; Flail joint, unspecified ankle and foot [M25.279] Social History Tobacco Use Types Packs/Day Years Used Date Smoking Tobacco: Former Cigarettes Cigars Smokeless Tobacco: Never Comments:QUIT at age 31 - Sm oked for approx 15 years and varied for PPD Sex and Gender Information Value Date Recorded Sex Assigned at Not on file Gender Identity Not on file Sexual Orientation Not on file documented as of this encounter Progress Notes * Evgeny Betancourt DO - 04/20/2023 9:[address] [facility] NEUROPHYSIOLOGY LABORATORY NERVE CONDUCTION AND ELECTROMYOGRAPHY EVALUATION - 04/20/23 BRIEF HISTROY: Jerad Swartz is a 67 y.o. male referred for electrodiagnostic evaluation of hand numbness, LLE weakness by: Roc Alvarado MD [address] [place] [id number]: Report scanned into EDH: 04/20/23 Focused History: Jerad Swartz is a 67 y.o. 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 Neurologicexam today does show some mild weakness in the right APB and the bilateral FDI as well as chronic weakness in the left lower extremity. Positive Phalen's bilaterally. Otherwise strength is intact as well as sensation reflexes and cerebellar activity and cranial nerve function. NCS/EMG: The bilateral median sensory amplitudes are reduced with slowed conduction velocities on the bilateral ulnar sensory studies are normal. The bilateral median motor studies show prolonged distal latencies but are otherwise within normal limits. Bilateral ulnar studies are normal. 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 All also other muscles sampled were normal. There is no sign of active denervation. IMPRESSION: This is an abnormal study. There is electrodiagnostic evidence of: A chronic, severe, compensated S1 radiculopathy on the right without active denervation. A chronic, severe, compensated S1 radiculopathy on the left without active denervation. A chronic, compensated C7 radiculopathy on the left without active denervation. A moderate to severe right median mononeuropathy across the wrist (e.g. carpal tunnel syndrome). A moderate to severe left median mononeuropathy across the wrist (e.g. carpal tunnel syndrome). CLINICAL CORRELATION: These findings show no active denervation certainly no evidence of motor neuron disease or other progressive neuropathies and are consistent with his history. Evgeny Betancourt DO Neuromuscular Medicine Neurology Department [facility] spent a total of 60 Minutes in discussion/counseling related to ongoing medical problems, with 30minutes in same day chart and test review, ordering testing/drugs, coordination of care and documentation, excluding the time spent in performing electrodiagnostic studies. documented in this encounter Plan of Treatment Upcoming Encounters Date Type Department Care Team (Late st Contact Info) Description 05/21/2024 8:00 AM EST Procedure [place] [address] Diony Huang MD [facility] [place] [address] 07/05/2024 9:00 AM EST Laboratory Appointment Lab [address] [place] [phone] 07/05/2024 10:00 AM EST Office [place] [phone] Talisha Nino APRN [facility] [place] [address] documented as of this encounter Visit Diagnoses Diagnosis Hand weakness [R29.898] Other musculoskeletal symptoms referable to limbs Flail joint, unspecified ankle and foot [M25.279] documented in this encounter Care Teams Food Cashier Relationship Specialty Start Date End Date Roc Alvarado MD PCP - General Family Medicine 03/02/20 12/17/23 documented as of this encounter
--- OUTSIDE RECORDS SUMMARY | 2024-02-26 16:33 | XMS_ITS | Encounter Summary ---
Author Organization [facility] [place] [address] Care Team Providers Care Ortho Nurse Name Role Phone Roc Alvarado MD Primary Care Provider [phone] Encounter Details Date Type Department Care Team (Latest Contact Info) Description 04/12/2022 Travel Social History Tobacco Use Types Packs/Day Years Used Date Smoking Tobacco: Never Smokeless Tobacco: Never Sex and Gender Information Value Date Recorded Sex Assigned at Not on file Gender Identity Not on file Sexual Orientation Not on file documented as of this encounter Plan of Treatment Upcoming Encounters Date Type Department Care Team (Late st Contact Info) Description 05/21/2024 8:00 AM EST Procedure visit Plastic Surgery at [place] [phone] Diony Huang MD [facility] [place] [address] 07/05/2024 9:00 AM EST Laboratory Appointment Lab [address] [place] [phone] 07/05/2024 10:00 AM EST Office Visit Urology at [place] [phone] Talisha Nino APRN [facility] [place] [address] documented as of this encounter Visit Diagnoses Not on filedocumented in this encounter Care Teams Ortho Nurse Relationship Specialty Start Date End Date Roc Alvarado MD PCP - General Family Medicine 03/02/20 12/17/23 documented as of this encounter
--- OUTSIDE RECORDS SUMMARY | 2024-02-26 16:33 | XMS_ITS | Encounter Summary ---
Author Organization [facility] Address [address] [place] [address] Care Team Providers Care Mirror Polisher Name Role Phone Unavailable Primary Care Provider Unavailabl e Encounter Details Date Type Department Care Team (Late st Contact Info) Description 03/03/2021 Lab Requisition [facility] Pathology & Laboratory Medicine - [facility] [address] [place] [address] Outr Resulting Lab, Provider Social History Tobacco Use Types Packs/Day Years Used Date Smoking Tobacco: Never Assessed Sex and Gender Information Value Date Recorded Sex Assigned at Not on file Gender Identity Not on file Sexual Orientation Not on file documented as of this encounter Plan of Treatment Not on file documented as of this encounter Procedures Procedure Name Priority Date/Time Associated Diagnosis Comments HEPATITIS C AB W REFLEX TO HCV RNA BY PCR Routine 03/03/2021 9:20 EDT PSA TOTAL, DIAGNOSTIC Routine 03/03/2021 9:20 EDT documented in this encounter Results * (ABNORMAL) PSA TOTAL, DIAGNOSTIC (03/03/2021 9:20 EDT) PSA 4.7(H) 0.0 - 4.5 ng/mL 03/03/2021 21:33 EDT [facility] Blood VENOUS BLOOD / Unknown 03/03/2021 9:20 EDT 03/03/2021 21:02 EDT Narrative [facility] - 03/03/2021 21:33 EDT NOTE: Serum PSA concentration should not be interpreted as absolute evidence for the presence or absence of malignant disease. Assayed on Siemens ADVIA zPerfect[employer]if[employer]ur XPT using chemiluminescent technology.??Values obtained by using different assay methods cannot be used interchangeably. Provider Outr Resulting Lab CHEMISTRY & BLOOD GAS ORDERABLES Performing Organization Address City/[facility]/ZIP Co de Phone Number [facility] [address] [place] [address] * HEPATITIS C AB W REFLEX TO HCV RNA BY PCR (03/03/2021 9:20 EDT) Hep C Antibody Negative Negative 03/04/2021 10:14 EDT [facility] Blood VENOUS BLOOD / Unknown 03/03/2021 9:20 EDT 03/03/2021 21:02 EDT Provider Outr Resulting Lab CHEMISTRY & BLOOD GAS ORDERABLES Performing Organization Address [facility] Co de Phone Number [facility] [address] [place] [address] documented in this encounter Visit Diagnoses Not on filedocumented in this encounter
--- OUTSIDE RECORDS SUMMARY | 2024-02-26 16:33 | XMS_ITS | Encounter Summary ---
Author Organization [facility] Address [facility] [place] [address] Care Team Providers Care Head Tennis Professional Name Role Phone Roc Alvarado MD Primary Care Provider [phone] Encounter Details Date Type Department Care Team (Latest Contact Info) Description 08/03/2020 7:38 AM EDT - 08/03/2020 11:59 PM EDT Hospital [place] [address] Paul Alonso MD [facility] [place] [address] Malignant neoplasm of prostate Discharge Disposition: Home Social History Tobacco Use Types Packs/Day Years Used Date Smoking Tobacco: Never Smokeless Tobacco: Never Sex and Gender Information Value Date Recorded Sex Assigned at Not on file Gender Identity Not on file Sexual Orientation Not on file documented as of this encounter Medications at Time of Discharge Medication Sig Dispensed Refills Start Date End Date cetirizine (ZyrTEC) 10 mg Tablet Take 10 [...] AM EST Procedure [place] [address] Paul Huang MD [facility] [place] [address] 07/05/2024 9:00 AM EST Laboratory Appointment Lab [address] [address] 07/05/2024 10:00 AM EST [place] [address] Talisha Nino APRN [facility] [place] [address] documented as of this encounter Procedures Procedure Name Priority Date/Time Associated Diagnosis Comments US GUIDED BIOPSY PROSTATE WITH URONAV FUSION Routine 08/03/2020 9:20 AM EDT Malignant neoplasm of prostate SURGICAL PATHOLOGY REPORT Routine 08/03/2020 9:11 AM EDT SPECIMEN TO PATHOLOGY Routine 08/03/2020 9:11 AM EDT SPECIMEN TO PATHOLOGY Routine 08/03/2020 9:11 AM EDT SPECIMEN TO PATHOLOGY Routine 08/03/2020 9:11 AM EDT SPECIMEN TO PATHOLOGY Routine 08/03/2020 9:11 AM EDT SPECIMEN TO PATHOLOGY Routine 08/03/2020 9:11 AM EDT SPECIMEN TO PATHOLOGY Routine 08/03/2020 9:11 AM EDT SPECIMEN TO PATHOLOGY Routine 08/03/2020 9:11 AM EDT SPECIMEN TO PATHOLOGY Routine 08/03/2020 9:11 AM EDT SPECIMEN TO PATHOLOGY Routine 08/03/2020 9:11 AM EDT SPECIMEN TO PATHOLOGY Routine 08/03/2020 9:11 AM EDT SPECIMEN TO PATHOLOGY Routine 08/03/2020 9:11 AM EDT SPECIMEN TO PATHOLOGY Routine 08/03/2020 9:11 AM EDT SPECIMEN TO PATHOLOGY Routine 08/03/2020 9:11 AM EDT documented in this encounter Results * US Guided Biopsy Prostate with Uronav Fusion (08/03/2020 9:20 AM EDT) Anatomical Region Laterality Modality Pelvis Ultrasound 08/03/2020 8:26 AM EDT Impressions 08/03/2020 2:15 PM EDT Prostate Summary Transrectal ultrasound of the prostate was performed. Hypoechoic area seen: ??mid Prostate Biopsy Summary Ultrasound guidance was provided for Dr. Alonso of the section of Urology who performed multiple biopsies in the [address] [place] [address] location. UroNav fusion was used for this procedure. Thank you for letting us participate in the care of this patient. For questions regarding this report, please contact the number below. ? Olivia Oliveira, Staff Physician Electronically Signed Final Report ?? 08/03/2020 02:15 pm Narrative 08/03/2020 2:15 PM EDT Male Pelvis ? (Signed Final 08/03/2020 02:15 pm) PATIENT INFO: ID #: ? [id number] ?: ??[birth year] (65 yrs)(Britney) Name: ? JERAD SWARTZ ? Visit Date: 08/03/2020 08:26 am PERFORMED BY: Performed By: ? John Garcia RDMS Attending: ?Olivia Oliveira MD Referred By: ?PAUL ALONSO Location: ? [place] SERVICE(S) PROVIDED: UTRBXURO - Prostate Biopsy with UroNav Fusion ? [id number], [id number] - [id number] INDICATIONS: Prostate cancer, active surveillance, PSA 4.91, MRI PIRADs 4 TECHNIQUE/SCAN QUALITY: Technique: ?Transducer #:27 COMPARISON: MRI Pelvis:07/22/20 --------- PROSTATE: --------- Size (cm) ?L: ??4.1 ? AP: ??3.7 ? TV: ??5.0 Vol (ml): ?39.7 Comment: ?Hypoechoic area seen: ??mid ADDITIONAL FINDINGS: Template biopsies performed: 6 biopsies obtained from the right. ??biopsies obtained from the left Several additional biopsies obtained through suspicious area(s) using UroNav fusion. Procedure Note Olivia Oliveira MD - 08/03/2020 Male Pelvis (Signed Final 08/03/2020 02:15 pm) PATIENT INFO: ID #: [id number] : 57 (65 yrs)(M) Name: JERAD SWARTZ Visit Date: 08/03/2020 08:26 am PERFORMED BY: Performed By: John Garcia RDMS Attending: Olivia Oliveira MD Referred By: PAUL ALONSO Location: [place] SERVICE(S) PROVIDED: UTRBXURO - Prostate Biopsy with UroNav Fusion [id number], [id number] - [id number] INDICATIONS: Prostate cancer, active surveillance, PSA 4.91, MRI PIRADs 4 TECHNIQUE/SCAN QUALITY: Technique: Transducer #:27 COMPARISON: MRI Pelvis:07/22/20 --------- PROSTATE: --------- Size (cm) L: 4.1 AP: 3.7 TV: 5.0 Vol (ml): 39.7 Comment: Hypoechoic area seen: mid ADDITIONAL FINDINGS: Template biopsies performed: 6 biopsies obtained from the right. biopsies obtained from the left Several additional biopsies obtained through suspicious area(s) using UroNav fusion. IMPRESSION Prostate Summary Transrectal ultrasound of the prostate was performed. Hypoechoic area seen: mid Prostate Biopsy Summary Ultrasound guidance was provided for Dr. Alonso of the section of Urology who performed multiple biopsies in the [address] [place] [address] location. UroNav fusion was used for this procedure. Thank you for letting us participate in the care of this patient. For questions regarding this report, please contact the number below. Olivia Oliveira, Staff Physician Electronically Signed Final Report 08/03/2020 02:15 pm Paul Alonso MD [facility] PROC ORDERABL ES * Surgical Pathology Report (08/03/2020 9:11 AM EDT) Final Diagnosis [id number] ? Location: The signing pathologist has (i) examined the relevant preparation(s) for the specimen(s) and (ii) rendered or confirmed the diagnosis(es). . ?Surgical Pathology DIAGNOSIS A - Prostatic core needle biopsy, right lateral base: Benign prostatic tissue. B - Prostatic core needle biopsy, right lateral mid: Benign prostatic tissue with mild acute and chronic inflammation. C - Prostatic core needle biopsy, right lateral apex: Benign prostatic tissue with mild acute and chronic inflammation. D - Prostatic core needle biopsy, right base: Benign prostatic tissue. E - Prostatic core needle biopsy, right mid: Benign prostatic tissue with small ?? focus of atypical ??glands and mild acute and chronic inflammation. F - Prostatic core needle biopsy, right apex: Benign prostatic tissue. G - Prostatic core needle biopsy, left lateral base: Benign prostatic tissue. H - Prostatic core needle biopsy, left lateral mid: Benign prostatic tissue with focal mild acute inflammation. I - Prostatic core needle biopsy, left lateral apex: Benign prostatic tissue. J - Prostatic core needle biopsy, left base: Benign prostatic tissue. K - Prostatic core needle biopsy, left mid: Benign prostatic tissue with focal mild acute inflammation. L - Prostatic core needle biopsy, left apex: Benign prostatic tissue. M - Prostate, fusion directed lesion ??: Atypical glands are present in 2 of 3 biopsy cores, see discussion. Electronically signed by: ??Cassy Kern MD Verified: ??08/05/2020 ?Pathologist Performed at: ??-[facility] Dept. of Pathology, [place], [place] DISCUSSION Part M: In 2 of 3 [...] 3 glands can not be entirely excluded. . ADDITIONAL STUDIES Immunohistochemistry Studies: Formalin-fixed, paraffin-embedded tissue sections are studied using the polymer technique with appropriate positive and negative controls. ?These IHC studies provide the pathologist with adjunctive diagnostic information. Antibody specificity has been verified by testing antibodies on a series of in-house tissues with known immunohistochemical performance characteristics. The clinical interpretation of any antibody positive staining or its absence is evaluated within the context of clinical presentation, morphology, histopathological criteria and other diagnostic tests. Block ? Antibody ?Result (Positive/Negative) M1 ?[id number],p63,HMWCK ? patchy basal cell staining in most glands with ?a few scattered atypical glands lack of basal ? cell staining Whole slide scan: [id number] M1-1 [id number] M 1-3 SPECIMEN(S) SUBMITTED A - Prostate, Right lateral base, biopsy (1) B - Prostate, Right lateral mid, biopsy (1) C - Prostate, Right lateral apex, biopsy (1) D - Prostate, Right base, biopsy (1) E - Prostate, Right mid, biopsy (1) F - Prostate, Right apex, biopsy (1) G - Prostate, Left lateral base, biopsy (1) H - Prostate, Left lateral mid, biopsy (1) I - Prostate, Left lateral apex, biopsy (1) J - Prostate, Left base, biopsy (1) K - Prostate, Left mid, biopsy (1) L - Prostate, Left apex, biopsy (1) M - Prostate, fusion directed lesion, biopsy (3) CLINICAL INFORMATION Elevated PSA SPECIMEN PROCESSING A - Labeled/Fixative: Prostate right lateral base, formalin. Quantity/Size: Single, 0.9 x 0.1 cm Tissue Description: Gunter needle core biopsy. Sections/Processing: Entirely submitted in 1 cassette labeled A1. B - Labeled/Fixative: Prostate right lateral mid, formalin. Quantity/Size: Single, 1.6 x 0.1 cm Tissue Description: Gunter needle core biopsy. Sections/Processing: Entirely submitted in 1 cassette labeled B1. . SPECIMEN PROCESSING C - Labeled/Fixative: Prostate right lateral apex, formalin. Quantity/Size: Single, 1.4 x 0.1 cm Tissue Description: Gunter needle core biopsy. Sections/Processing: Entirely submitted in 1 cassette labeled C1. D - Labeled/Fixative: Prostate right base, formalin. Quantity/Size: Single, 1.3 x 0.1 cm Tissue Description: Gunter needle core biopsy. Sections/Processing: Entirely submitted in 1 cassette labeled D1. E - Labeled/Fixative: Prostate right mid, formalin. Quantity/Size: Single, 1.1 x 0.1 cm Tissue Description: Gunter needle core biopsy Sections/Processing: Entirely submitted in 1 cassette labeled E1. F - Labeled/Fixative: Prostate right apex, formalin. Quantity/Size: Single, 1.4 x 0.1 cm Tissue Description: Gunter needle core biopsy. Sections/Processing: Entirely submitted in 1 cassette labeled F1. G - Labeled/Fixative: Prostate left lateral base, formalin. Quantity/Size: Single, 1.3 x 0.1 cm Tissue Description: Red-gunter needle core biopsy. Sections/Processing: Entirely submitted in 1 cassette labeled G1. H - Labeled/Fixative: Prostate left lateral mid, formalin. Quantity/Size: Single, 1.7 x 0.1 cm Tissue Description: Gunter needle core biopsy. Sections/Processing: Entirely submitted in 1 cassette labeled H1. I - Labeled/Fixative: Prostate left lateral apex, formalin. Quantity/Size: Single, 0.7 x 0.1 cm Tissue Description: Red-gunter needle core biopsy. Sections/Processing: Entirely submitted in 1 cassette labeled I1. J - Labeled/Fixative: Prostate left base, formalin. Quantity/Size: Single, 1.1 x 0.1 cm Tissue Description: Gunter needle core biopsy. Sections/Processing: Entirely submitted in 1 cassette labeled J1. K - Labeled/Fixative: Prostate left mid, formalin. Quantity/Size: Single, 1.3 x 0.1 cm Tissue Description: Gunter-pink needle core biopsy. Sections/Processing: Entirely submitted in 1 cassette labeled K1. L - Labeled/Fixative: Prostate left apex, formalin. Quantity/Size: Single, 1.2 x 0.1 cm Tissue Description: Gunter-pink needle core biopsy. Sections/Processing: Entirely submitted in 1 cassette labeled L1. M - Labeled/Fixative: M, formalin. Quantity/Size: Three, 0.5-1.1 cm Tissue Description: Gunter needle core biopsies. . SPECIMEN PROCESSING Sections/Processing: Entirely submitted in 1 cassette labeled M1. ??jose 08/05/2020 3:31 PM EDT [facility] PROSTATIC STRUCTURE / Unknown 08/03/2020 9:11 AM EDT 08/03/2020 9:11 AM EDT PROSTATIC STRUCTURE / Unknown 08/03/2020 9:11 AM EDT 08/03/2020 9:11 AM EDT PROSTATIC STRUCTURE / Unknown 08/03/2020 9:11 AM EDT 08/03/2020 9:11 AM EDT PROSTATIC STRUCTURE / Unknown 08/03/2020 9:11 AM EDT 08/03/2020 9:11 AM EDT PROSTATIC STRUCTURE / Unknown 08/03/2020 9:11 AM EDT 08/03/2020 9:11 AM EDT PROSTATIC STRUCTURE / Unknown 08/03/2020 9:11 AM EDT 08/03/2020 9:11 AM EDT PROSTATIC STRUCTURE / Unknown 08/03/2020 9:11 AM EDT 08/03/2020 9:11 AM EDT PROSTATIC STRUCTURE / Unknown 08/03/2020 9:11 AM EDT 08/03/2020 9:11 AM EDT PROSTATIC STRUCTURE / Unknown 08/03/2020 9:11 AM EDT 08/03/2020 9:11 AM EDT PROSTATIC STRUCTURE / Unknown 08/03/2020 9:11 AM EDT 08/03/2020 9:11 AM EDT PROSTATIC STRUCTURE / Unknown 08/03/2020 9:11 AM EDT 08/03/2020 9:11 AM EDT PROSTATIC STRUCTURE / Unknown 08/03/2020 9:11 AM EDT 08/03/2020 9:11 AM EDT PROSTATIC STRUCTURE / Unknown 08/03/2020 9:11 AM EDT 08/03/2020 9:11 AM EDT Paul Alonso MD PATHOLOGY/CYTOLOGY O GABRIEL Performing Organization Address City/[facility]/[place] [address] * Specimen to Pathology (08/03/2020 9:11 AM EDT) AP Specimen 08/03/2020 9:11 AM EDT 08/03/2020 11:45 AM EDT Narrative [facility] - 08/03/2020 11:45 AM EDT Specimen requisition ordered. ??Separate Pathology report to follow Resulting Agency Comment Spec In Lab Paul Alonso MD PATHOLOGY/CYTOLOGY O GABRIEL Performing Organization Address [facility]/[place] [address] * Specimen to Pathology (08/03/2020 9:11 AM EDT) AP Specimen 08/03/2020 9:11 AM EDT 08/03/2020 11:45 AM EDT Narrative [facility] - 08/03/2020 11:45 AM EDT Specimen requisition ordered. ??Separate Pathology report to follow Resulting Agency Comment Spec In Lab Paul Alonso MD PATHOLOGY/CYTOLOGY O GABRIEL Performing Organization Address City/[facility]/ZIP Co de Phone Number [facility] [place] [address] * Specimen to Pathology (08/03/2020 9:11 AM EDT) AP Specimen 08/03/2020 9:11 AM EDT 08/03/2020 11:45 AM EDT Narrative [facility] - 08/03/2020 11:45 AM EDT Specimen requisition ordered. ??Separate Pathology report to follow Resulting Agency Comment Spec In Lab Paul Alonso MD PATHOLOGY/[place] [address] * Specimen to Pathology (08/03/2020 9:11 AM EDT) AP Specimen 08/03/2020 9:11 AM EDT 08/03/2020 11:45 AM EDT Narrative [facility] - 08/03/2020 11:45 AM EDT Specimen requisition ordered. ??Separate Pathology report to follow Resulting Agency Comment Spec In Lab Paul Alonso MD PATHOLOGY/CYTOLOGY O GABRIEL Performing Organization Address City/[facility]/[place] [address] * Specimen to Pathology (08/03/2020 9:11 AM EDT) AP Specimen 08/03/2020 9:11 AM EDT 08/03/2020 11:45 AM EDT Narrative [facility] - 08/03/2020 11:45 AM EDT Specimen requisition ordered. ??Separate Pathology report to follow Resulting Agency Comment Spec In Lab Paul Alonso MD PATHOLOGY/[place] [address] * Specimen to Pathology (08/03/2020 9:11 AM EDT) AP Specimen 08/03/2020 9:11 AM EDT 08/03/2020 11:45 AM EDT Narrative [facility] - 08/03/2020 11:45 AM EDT Specimen requisition ordered. ??Separate Pathology report to follow Resulting Agency Comment Spec In Lab Paul Alonso MD PATHOLOGY/CYTOLOGY O GABRIEL Performing Organization Address [facility] [place] [place] [address] * Specimen to Pathology (08/03/2020 9:11 AM EDT) AP Specimen 08/03/2020 9:11 AM EDT 08/03/2020 11:45 AM EDT Narrative [facility] - 08/03/2020 11:45 AM EDT Specimen requisition ordered. ??Separate Pathology report to follow Resulting Agency Comment Spec In Lab Paul Alonso MD PATHOLOGY/CYTOLOGY O GABRIEL Performing Organization Address [facility] [place] [place] [address] * Specimen to Pathology (08/03/2020 9:11 AM EDT) AP Specimen 08/03/2020 9:11 AM EDT 08/03/2020 11:45 AM EDT Narrative [facility] - 08/03/2020 11:45 AM EDT Specimen requisition ordered. ??Separate Pathology report to follow Resulting Agency Comment Spec In Lab Paul Alonso MD PATHOLOGY/CYTOLOGY O GABRIEL Performing Organization Address [facility] [place] [place] [address] * Specimen to Pathology (08/03/2020 9:11 AM EDT) AP Specimen 08/03/2020 9:11 AM EDT 08/03/2020 11:45 AM EDT Narrative [facility] - 08/03/2020 11:45 AM EDT Specimen requisition ordered. ??Separate Pathology report to follow Resulting Agency Comment Spec In Lab Paul Alonso MD PATHOLOGY/CYTOLOGY O GABRIEL Performing Organization Address City/[facility]/[place] [address] * Specimen to Pathology (08/03/2020 9:11 AM EDT) AP Specimen 08/03/2020 9:11 AM EDT 08/03/2020 11:45 AM EDT Narrative [facility] - 08/03/2020 11:45 AM EDT Specimen requisition ordered. ??Separate Pathology report to follow Resulting Agency Comment Spec In Lab Paul Alonos MD PATHOLOGY/CYTOLOGY Ervin RIOS Performing Organization Address [facility] [place] [place] [address] * Specimen to Pathology (08/03/2020 9:11 AM EDT) AP Specimen 08/03/2020 9:11 AM EDT 08/03/2020 11:45 AM EDT Narrative [facility] - 08/03/2020 11:45 AM EDT Specimen requisition ordered. ??Separate Pathology report to follow Resulting Agency Comment Spec In Lab Paul Alonso MD PATHOLOGY/CYTOLOGY Ervin RIOS Performing Organization Address [facility]/[place] [address] * Specimen to Pathology (08/03/2020 9:11 AM EDT) AP Specimen 08/03/2020 9:11 AM EDT 08/03/2020 11:45 AM EDT Narrative [facility] - 08/03/2020 11:45 AM EDT Specimen requisition ordered. ??Separate Pathology report to follow Resulting Agency Comment Spec In Lab Paul Alonso MD PATHOLOGY/CYTOLOGY O GABRIEL Performing Organization Address City/[facility]/[place] [address] * Specimen to Pathology (08/03/2020 9:11 AM EDT) AP Specimen 08/03/2020 9:11 AM EDT 08/03/2020 11:45 AM EDT Narrative [facility] - 08/03/2020 11:45 AM EDT Specimen requisition ordered. ??Separate Pathology report to follow Resulting Agency Comment Spec In Lab Paul Alonso MD PATHOLOGY/CYTOLOGY O RDERABLES [facility] [place] [address] documented in this encounter Visit Diagnoses Diagnosis Malignant neoplasm of prostate documented in this encounter Care Teams Head Tennis Professional Relationship Specialty Start Date End Date Roc Alvarado MD PCP - General Family Medicine 03/02/20 12/17/23 documented as of this encounter
--- OUTSIDE RECORDS SUMMARY | 2024-02-26 16:33 | XMS_ITS | Encounter Summary ---
Author Organization [facility] [place] [address] Care Team Providers Care Slurry Control Tender Name Role Phone Roc Alvarado MD Primary Care Provider [phone] Encounter Details Date Type Department Care Team (Latest Contact Info) Description 10/25/2022 Travel Social History Tobacco Use Types Packs/Day [...] AM EST Procedure [place] [phone] Diony Huang MD [facility] [place] [address] 07/05/2024 9:00 AM EST Laboratory Appointment Lab [address] [place] [address] 07/05/2024 10:00 AM EST Office [place] [address] Talisha Nino APRN [facility] [place] [address] documented as of this encounter Visit Diagnoses Not on filedocumented in this encounter Care Teams Slurry Control Tender Relationship Specialty Start Date End Date Roc Alvarado MD PCP - General Family Medicine 03/02/20 12/17/23 documented as of this encounter
--- OUTSIDE RECORDS SUMMARY | 2024-02-26 16:33 | XMS_ITS | Encounter Summary ---
Author Organization [facility] [place] [address] Care Team Providers Care Rehab Nursing Tech Name Role Phone Roc Alvarado MD Primary Care Provider [phone] Encounter Details Date Type Department Care Team (Late st Contact Info) Description 09/04/2023 Telephone [place] [address] Pelon Todd Social History Tobacco Use Types Packs/Day Years [...] encounter Miscellaneous Notes * Telephone Encounter - Pelon Todd - 09/04/2023 8:04 AM EDT LMOM - Need to ask MR safety questions for prostate MRI for this summer. documented in this encounter Plan of Treatment Upcoming Encounters Date Type Department Care Team (Late st Contact Info) Description 05/21/2024 8:00 AM EST Procedure visit [place] [address] Diony Huang MD [facility] [place] [address] 07/05/2024 9:00 AM EST Laboratory Appointment Lab [address] [place] [address] 07/05/2024 10:00 AM EST Office [place] [address] Talisha Nino APRN [facility] [place] [address] documented as of this encounter Visit Diagnoses Not on filedocumented in this encounter Care Teams Rehab Nursing Tech Relationship Specialty Start Date End Date Roc Alvarado MD PCP - General Family Medicine 03/02/20 12/17/23 documented as of this encounter
--- OUTSIDE RECORDS SUMMARY | 2024-02-26 16:33 | XMS_ITS | Encounter Summary ---
Author Organization [facility] [place] [address] Care Team Providers Care Computer Support Technician Name Role Phone Roc Alvarado MD Primary Care Provider [phone] Encounter Details Date Type Department Care Team (Latest Contact Info) Description 11/24/2023 Travel Social History Tobacco Use Types Packs/Day [...] AM EST Procedure visit [place] [address] Diony Huang MD [facility] [place] [address] 07/05/2024 9:00 AM EST Laboratory Appointment Lab [address] [place] [address] 07/05/2024 10:00 AM EST Office [place] [address] Talisha Nino APRN [facility] [place] [place] [address] documented as of this encounter Visit Diagnoses Not on filedocumented in this encounter Care Teams Computer Support Technician Relationship Specialty Start Date End Date Roc Alvarado MD PCP - General Family Medicine 03/02/20 12/17/23 documented as of this encounter
--- OUTSIDE RECORDS SUMMARY | 2024-02-26 16:33 | XMS_ITS | Encounter Summary ---
[place] [address] Care Team Providers Care Agriscience Technology Instructor Name Role Phone Roc Alvarado MD Primary Care Provider [phone] Reason for Visit * Reason Onset Date Comments Referral 02/01/2023 Encounter Details Date Type Department Care Team (Late st Contact Info) Description 02/01/2023 Telephone [place] [phone] Evgeny Betancourt DO Referral Social History Tobacco Use Types Packs/Day Years [...] encounter Miscellaneous Notes * Telephone Encounter - Talisha Lundberg RN - 02/01/2023 10:14 AM EDT Orthotic referral faxed with demographics sheet to [facility] at fax# [phone]. * Telephone Encounter - Talisha Lundberg RN - 02/01/2023 10:10 AM EDT Copied from [facility] #[id number]. Topic: Specialty Dept CRMs - Orders >> Jan 31, 2023 11:18 AM Kalpana Perez wrote: Orders Request Specialist: Evgeny Betancourt DO Relationship (if other than patient-full name): Patient Type of Request: [x] Send orders Type/Name of Order: Other: Orthotics Patient Requesting to Have Orders Sent to Facility Outside of [facility]: Yes If Yes, Name of Facility: [facility] Address: [address] [place] [address] Phone #: [phone] Fax #: [phone] documented in this encounter Plan of Treatment Upcoming Encounters Date Type Department Care Team (Late st Contact Info) Description 05/21/2024 8:00 AM EST Procedure [place] [address] Diony Huang MD [facility] [place] [address] 07/05/2024 9:00 AM EST Laboratory Appointment Lab [address] [place] [phone] 07/05/2024 10:00 AM EST Office Visit Urology at [place] [address] Talisha Nino, [facility]BER[facility] [place] [address] documented as of this encounter Visit Diagnoses Not on filedocumented in this encounter Care Teams Agriscience Technology Instructor Relationship Specialty Start Date End Date Roc Alvarado MD PCP - General Family Medicine 03/02/20 12/17/23 documented as of this encounter
--- OUTSIDE RECORDS SUMMARY | 2024-02-26 16:33 | XMS_ITS | Encounter Summary ---
[place] [address] Care Team Providers Care Traffic Sergeant Name Role Phone Roc Alvarado MD Primary Care Provider [phone] Encounter Details Date Type Department Care Team (Latest Contact Info) Description 07/22/2020 11:45 AM EST Laboratory Appointment Lab [address] [place] [phone] Secondary malignant neoplasm of prostate Social History Tobacco Use [...] AM EST Procedure [place] [phone] Diony Huang MD [facility] [place] [address] 07/05/2024 9:00 AM EST Laboratory Appointment Lab [address] [place] [phone] 07/05/2024 10:00 AM EST [place] [phone] Talisha Nino APRN [facility] [place] [address] documented as of this encounter Procedures Procedure Name Priority Date/Time Associated Diagnosis Comments HC PROSTATE SPECIFIC ANTIGEN STAT 07/22/2020 12:01 PM EST Secondary malignant neoplasm of prostate documented in this encounter Results * (ABNORMAL) PSA (Ultrasensitive) (07/22/2020 12:01 PM EST) Prostate Specific Antigen (Ultrasensitive ) 4.91(H) 0.00 - 4.00 ng/mL [facility] Comment: PLEASE NOTE: The above reference interval is intended for healthy males with an intact prostate. Values within this reference interval may indicate recurrence in men who have undergone radical prostatectomy. 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
--- OUTSIDE RECORDS SUMMARY | 2024-02-26 16:33 | XMS_ITS | Encounter Summary ---
Author Organization [facility] Address [address] [place] [address] Care Team Providers Care Polygraph Operator Name Role Phone Unavailable Primary Care Provider Unavailabl e Encounter Details Date Type Department Care Team (Late st Contact Info) Description 03/12/2022 Lab Requisition [facility] Pathology & Laboratory Medicine - [facility] [address] [place] [address] Outr Resulting Lab, Provider Social History Tobacco [...] Name Priority Date/Time Associated Diagnosis Comments PSA TOTAL, DIAGNOSTIC Routine 03/11/2022 15:50 EDT documented in this encounter Results * (ABNORMAL) PSA TOTAL, DIAGNOSTIC (03/11/2022 15:50 EDT) PSA 4.7(H) <=4.5 ng/mL 03/14/2022 13:51 EDT [facility] Blood VENOUS BLOOD / Unknown 03/11/2022 15:50 EDT 03/12/2022 21:47 EDT Narrative [facility] - 03/14/2022 13:51 EDT NOTE: Serum PSA concentration should not be interpreted as absolute evidence for the presence or absence of malignant disease. Assayed on Siemens ADVIA Centaur XPT using chemiluminescent technology.??Values obtained by using different assay methods cannot be used interchangeably. Provider Outr Resulting Lab CHEMISTRY & BLOOD GAS ORDERABLES Performing Organization Address [facility]/State/ZIP Co de Phone Number [facility] [address] [place] [address] documented in this encounter Visit Diagnoses Not on filedocumented in this encounter
--- OUTSIDE RECORDS SUMMARY | 2024-02-26 16:33 | XMS_ITS | Encounter Summary ---
Author Organization [facility] [place] [address] Care Team Providers Care Distributing Clerk Name Role Phone Roc Alvarado MD Primary Care Provider [phone] Reason for Referral * Diagnostic Test (Routine) - Closed Specialty Diagnoses / Procedures Referred By Contac t Referred To Contact Radiology Diagnoses Malignant neoplasm of prostate Procedures MRI Pelvis wwo (Prostate) Roc Plummer MD [facility] [place] [address] [place] [address] Referral ID Status Reason Start Date Expiration Date V isits Requested Visits Authorized [id number] Closed Specialty Service Requested 09/26/2023 11/24/2023 1 1 Reason for Visit * Diagnostic Test (Routine) - Closed Specialty Diagnoses / Procedures Referred By Contac t Referred To Contact Radiology Diagnoses Malignant neoplasm of prostate Procedures MRI Pelvis wwo (Prostate) Roc Plummer MD [facility] [place] [address] [place] [address] Referral ID Status Reason Start Date Expiration Date V isits Requested Visits Authorized [id number] Closed Specialty Service Requested 09/26/2023 11/24/2023 1 1 Encounter Details Date Type Department Care Team (Latest Contact Info) Description 11/24/2023 9:39 AM EDT - 11/24/2023 11:59 PM EDT Hospital [place] [phone] Roc Plummer MD [facility] [place] [address] Malignant neoplasm of prostate Discharge Disposition: Home [...] AM EST Procedure [place] [phone] Diony Huang MD [facility] [place] [address] 07/05/2024 9:00 AM EST Laboratory Appointment Lab [address] [place] [phone] 07/05/2024 10:00 AM EST Office [place] [address] Talisha Nino APRN [facility] [place] [address] documented as of this encounter Procedures Procedure Name Priority Date/Time Associated Diagnosis Comments MRI PELVIS WWO (PROSTATE) Routine 11/24/2023 10:46 AM EDT Malignant neoplasm of prostate documented in this encounter Results * MRI Pelvis wwo (Prostate) (11/24/2023 10:46 AM EDT) WORKSTATION ID [id number] RAD Anatomical Region Laterality Modality Pelvis Magnetic [...] JH1, Mcdonough S1, Porter C1, Gonzales J1, Czarnieckdrea M1, Gold S1, Moses G1, Rayn K1, May MJ1, Wood BJ1, Charles PA1, Chokelseye PL1, Vamsi B1. ??A Grading System for the Assessment of Risk of Extraprostatic Extension of Prostate Cancer at Multiparametric MRI. Radiology. 2019 Mar;290(3):709-719. doi: 10.1148/radiol.7830373702. Epub 2018Jun 05. Thank you for letting us participate in the care of this patient. ??If you are a health care provider and have any questions regarding this report, please contact the number below. ??For patients who have questions please contact the health nurse care manager that requested your imaging first. ? Narrative 11/24/2023 4:06 PM EDT EXAMINATION: MRI [...] high (clinically significant cancer is highly likely jasis present) References: Bandar S1, Eliza JH1, Mcdonough S1, Porter C1, Gonzales J1, Sureshnilevi M1,Gold S1, Moses G1, Rayn K1, Lalo MJ1, Hammad BJ1, Melvin PA1, Trish PL1, Vamsi B1.A Grading System for the Assessment of Risk of Extraprostatic Extension of Prostate Cancer at Multiparametric MRI. Radiology. 2019Mar;290(3):709-719. doi: 10.1148/radiol.9885512047. Epub 2018Jun 05. Thank you for letting us participate in the care of this patient. If youare a health care provider and have any questions regarding this report,please contact the number below. For patients who have questions please contactthe health nurse care manager that requested your imaging first. Roc Plummer MD IMG MRI ORDERABLES documented in this encounter Visit Diagnoses Diagnosis Malignant neoplasm of prostate documented in this encounter Administered Medications Inactive Administered Medications - up to 3 most recent administrations Medication Order MAR Action Action Date Dose Rate Site gadoterate meglumine (Dotarem) (0.5 mMol/mL) injection solution 0-100 mL 0-100 mL, Intravenous, ONCE PRN, 1 dose, Starting on Mon11/24/23 at 1024, Until Mon11/24/23 at 1024, Per Protocol, Radiology Contrast, Routine Given 11/24/2023 10:24 AM EDT 17 mLs documented in this encounter Care Teams Distributing Clerk Relationship Specialty Start Date End Date Roc Alvarado MD PCP - General Family Medicine 03/02/20 12/17/23 documented as of this encounter
--- OUTSIDE RECORDS SUMMARY | 2024-02-26 16:33 | XMS_ITS | Encounter Summary ---
Author Organization [facility] [place] [address] Care Team Providers Care Certified Coatings Inspector Name Role Phone Roc Alvarado MD Primary Care Provider [phone] Reason for Referral * Diagnostic Test (Routine) - Closed Specialty Diagnoses / Procedures Referred By Contac t Referred To Contact Radiology Diagnoses Secondary malignant neoplasm of prostate Procedures MRI Pelvis wwo (Prostate) Roc Plummer MD [facility] [place] [address] [place] [address] Referral ID Status Reason Start Date Expiration Date V isits Requested Visits Authorized [id number] Closed Specialty Service Requested 07/21/2020 12/16/2020 1 1 Reason for Visit * Diagnostic Test (Routine) - Closed Specialty Diagnoses / Procedures Referred By Contac t Referred To Contact Radiology Diagnoses Secondary malignant neoplasm of prostate Procedures MRI Pelvis wwo (Prostate) Roc Plummer MD [facility] [place] [address] [place] [address] Referral ID Status Reason Start Date Expiration Date V isits Requested Visits Authorized [id number] Closed Specialty Service Requested 07/21/2020 12/16/2020 1 1 Encounter Details Date Type Department Care Team (Latest Contact Info) Description 07/22/2020 12:06 PM EST - 07/22/2020 11:59 PM EST [place] [address] Roc Plummer MD [facility] [place] [address] Secondary malignant neoplasm of prostate Discharge Disposition: Home Social History Tobacco Use Types Packs/Day Years Used Date Smoking Tobacco: Never Smokeless Tobacco: Never Sex and Gender Information Value Date Recorded Sex Assigned at Not on file Gender Identity Not on file Sexual Orientation Not on file documented as of this encounter Medications at Time of Discharge Medication Sig Dispensed Refills Start Date End Date tamsulosin (Flomax) 0.4 mg Capsule Take 0.4 [...] 48 hours as needed. 10 tablet 03/20/2020 fluticasone propionate (FLONASE) 50 mcg/actuation [place], Suspension 1 spray daily. 07/28/2020 documented as of this encounter Plan of Treatment Upcoming Encounters Date Type Department Care Team (Late st Contact Info) Description 05/21/2024 8:00 AM EST Procedure visit Plastic Surgery at [place] [phone] Diony Huang MD [facility] [place] [address] 07/05/2024 9:00 AM EST Laboratory Appointment Lab [address] [place] [address] 07/05/2024 10:00 AM EST [place] [address] Talisha Nino APRN [facility] UROLOGY [place], [place] [phone] documented as of this encounter Procedures Procedure Name Priority Date/Time Associated Diagnosis Comments MRI PELVIS WWO (PROSTATE) Routine 07/22/2020 1:52 PM EST Secondary malignant neoplasm of prostate documented in this encounter Results * MRI Pelvis wwo (Prostate) (07/22/2020 1:52 PM EST) Anatomical Region Laterality Modality Pelvis Magnetic Resonan ce Impressions 07/22/2020 4:03 PM EST Lesion 1 PZ: PI-RADS 4. Clinically significant cancer is likely to be present. T2 location: axial series 7, image 16; sagittal ??series 8, image 15. Segmented in UroNav. PI-RADS v2.1 Assessment Categories PI-RADS 1 -- [...] be present) References: Bandar S1, Eliza JH1, Ceasar S1, Porter C1, Gonzales J1, Preet M1, Gold S1, Moses G1, Rayn K1, Lalo MJ1, Wood BJ1, Charles PA1, Chokelseye PL1, Vamsi B1. ??A Grading System for the Assessment of Risk of Extraprostatic Extension of Prostate Cancer at Multiparametric MRI. Radiology. 2019 Jul;290(3):709-719. doi: 10.1148/radiol.8192198940. Epub 2018Jun 05. I have personally reviewed the image(s) and the resident's interpretation and agree with the findings, Dionisio Henry MD at 07/22/2020 4:03 PM Thank you for letting us participate in the care of this patient. For questions regarding this report, please contact the number below. ? Narrative 07/22/2020 4:03 PM EST EXAMINATION: MRI PELVIS WWO (PROSTATE) CLINICAL HISTORY: Very low risk prostate cancer on Active Surveillance. Please identify targets for a UroNav biopsy REASON FOR PROSTATE EXAM: Very low risk prostate cancer on active surveillance HAS PATIENT HAD PREVIOUS BIOPSY?:Yes, [place] 3+3 on 06/2019 MOST RECENT PSA LEVEL:4.91 on 07/22/2020 TECHNIQUE: Multiparametric MRI of the prostate prior to and following IV administration of 16 cc of Dotarem contrast. ?? QUALITY: Meets PI-RADS technical criteria. COMPARISON: None FINDINGS: Prostate dimensions: 5.2 x 4.6 x 4.3cm. Estimated prostate volume: 54.69cc (X x Y x Z x 0.52) PSA density: 0.09 (PSA/prostate volume >0.15 susp, 0.25 highly susp) Peripheral zone: Lesion 1. Left posteromedial PZ at the base. T2: Circumscribed, homogenous moderately hypointense focus/mass confined to prostate measuring 7 x 7 mm axially, 10 mm craniocaudally.. PI-RADs: 4. DWI: ??Focal markedly hypointense on ADC and markedly hyperintense on high b-value DWI; ??<1.5cm in greatest dimension . PI-RADs: 4. DCE-MRI: (+) focal early enhancement which corresponds to the suspicious finding on T2WI and/or DWI. ? Combined PI-RADs: 4. Transition zone: No focal lesions. Partially extruded nodule in the right anterolateral mid gland (series 7, image 24). T2: Typical encapsulated and homogenous circumscribed nodules. Combined PI-RADs: 2. Extraprostatic disease: Seminal vesicle involvement:No Lymphadenopathy:No Sphincter involvement:No Bladder involvement:No Osseous metastases: No . MRI-derived Extraprostatic extension risk: None Other findings: None.. Procedure Note Dionisio Henry MD - 07/22/2020 EXAMINATION: MRI PELVIS WWO (PROSTATE) CLINICAL HISTORY: Very low risk prostate cancer on Active Surveillance.Please identify targets for a UroNav biopsy REASON FOR PROSTATE EXAM: Very low risk prostate cancer on activesurveillance HAS PATIENT HAD PREVIOUS BIOPSY?:Yes, [place] 3+3 on 06/2019 MOST RECENT PSA LEVEL:4.91 on 07/22/2020 TECHNIQUE: Multiparametric MRI of the prostate prior to and following IV administration of 16 cc of Dotarem contrast. QUALITY: Meets PI-RADS technical criteria. COMPARISON: None FINDINGS: Prostate dimensions: 5.2 x 4.6 x 4.3cm. Estimated prostate volume: 54.69cc (X x Y x Z x 0.52) PSA density: 0.09 (PSA/prostate volume >0.15 susp, 0.25 highly susp) Peripheral zone: Lesion 1. Left posteromedial PZ at the base. T2: Circumscribed, homogenous moderately hypointense focus/mass confinedto prostate measuring 7 x 7 mm axially, 10 mm craniocaudally.. PI-RADs: 4. DWI: Focal markedly hypointense on ADC and markedly hyperintense onhigh b-value DWI; <1.5cm in greatest dimension . PI-RADs: 4. DCE-MRI: (+) focal early enhancement which corresponds to the suspiciousfinding on T2WI and/or DWI. Combined PI-RADs: 4. Transition zone: No focal lesions. Partially extruded nodule in the right anterolateral midgland (series 7, image 24). T2: Typical encapsulated and homogenous circumscribed nodules. Combined PI-RADs: 2. Extraprostatic disease: Seminal vesicle involvement:No Lymphadenopathy:No Sphincter involvement:No Bladder involvement:No Osseous metastases: No . MRI-derived Extraprostatic extension risk: None Other findings: None.. IMPRESSION Lesion 1 PZ: PI-RADS 4. Clinically significant cancer is likely to bepresent. T2 location: axial series 7, image 16; sagittal series 8, image 15. Segmented in UroNav. PI-RADS v2.1 Assessment Categories PI-RADS 1 -- [...] cancer is highly likely jassi present) References: Mehralivanmila S1, Eliza JH1, Mcdonough S1, Porter C1, Gonzales J1, Czarniecki M1,Gold S1, Moses G1, Rayn K1, May MJ1, Wood BJ1, Charles PA1, Chotony PL1, Turkbechloe B1.A Grading System for the Assessment of Risk of Extraprostatic Extension of Prostate Cancer at Multiparametric MRI. Radiology. 2019Mar;290(3):709-719. doi: 10.1148/radiol.9721271188. Epub 2018Jun 05. I have personally reviewed the image(s) and the resident's interpretationand agree with the findings, Dionisio Henry MD at 07/22/2020 4:03 PM Thank you for letting us participate in the care of this patient. Forquestions regarding this report, please contact the number below. 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 documented in this encounter Administered Medications Inactive Administered Medications - up to 3 most recent administrations Medication Order MAR Action Action Date Dose Rate Site gadoterate meglumine (Dotarem) (0.5 mMol/mL) injection solution 0-100 mL 0-100 mL, Intravenous, ONCE PRN, 1 dose, Starting on Mon07/22/20 at 1304, Until Mon07/22/20 at 1347, Per Protocol, Radiology Contrast, Routine Given 07/22/2020 1:47 PM EST 16 mLs documented in this encounter Care Teams Certified Coatings Inspector Relationship Specialty Start Date End Date Roc Alvarado MD PCP - General Family Medicine 03/02/20 12/17/23 documented as of this encounter
--- OUTSIDE RECORDS SUMMARY | 2024-02-26 16:33 | XMS_ITS | Encounter Summary ---
[place] [address] Care Team Providers Care Take Up Supervisor Name Role Phone Roc Alvarado MD Primary Care Provider [phone] Reason for Visit * Reason Comments Follow-up Encounter Details Date Type Department Care Team (Late st Contact Info) Description 10/17/2022 4:00 PM EDT [place] [address] Roc Plummer MD [facility] [place] [address] Malignant neoplasm of prostate (Primary Dx) Social [...] Sign Reading Time Taken Comments Blood Pressure 123/75 10/17/2022 3:47 PM EDT Pulse 67 10/17/2022 3:47 PM EDT Temperature - - Respiratory Rate - - Oxygen Saturation 99% 10/17/2022 3:47 PM EDT Inhaled Oxygen Concentration - - Weight - - Height - - Body Mass Index - - documented in this encounter Progress Notes * Roc Plummer MD - 10/17/2022 4:00 PM EDT Patient Name: Jerad Swartz Date of Service: 10/17/2022 Primary Care Provider: Roc Alvarado MD Reason for Visit: Jerad Swartz is a 67 y.o. male who comes for f/u of prostate cancer. He is onActive surveillance The patient had a urologist in [facility] PSA ~01/2019 3.8 06/2019 4.0 10/2019 4.2 01/2020 4.4 07/2020 4.91 08/2021 5.11 02/2022 4.7 10/2022 4.85 06/2019 Biopsy 16 cores 05/26 suspicious 05/26 <1 % [place] score 3+3=6 07/2020 MR PiRADS 4. No [...] stable. There is no new bone pain. IPSS 03/2020 2/4/4/0/5/0/1/ QOL 4 03/2020 2/2/2/2/2 [...] ness. All other systems negative. Physical Exam: 08/2021 Prostate is 50 grams and symmetrical without tenderness or masses. A little more prominant at the right apex. Not suspicous seminal vesicals are not palpable. No change Lab values are noted X-rays None Impression: #1: [id number] Grade Group 1 [place] 3+3=6 Very low risk Prostate cancer. On Active Surveillance. No evidence of progression #2: LUTS stable #3: ED Plan: No evidence of progression. COntinue Active surveillance. 6 months PSA At 1 year PSA, ANABEL, MR and likely biopsy All questions answered. documented in this encounter Plan of Treatment Upcoming Encounters Date Type Department Care Team (Late st Contact Info) Description 05/21/2024 8:00 AM EST Procedure [place] [address] Diony Huang MD [facility] [place] [address] 07/05/2024 9:00 AM EST Laboratory Appointment Lab [address] [place] [phone] 07/05/2024 10:00 AM EST [place] [address] Talisha Nino APRN [facility] [place] [address] documented as of this encounter Visit Diagnoses Diagnosis Malignant neoplasm of prostate- Primary documented in this encounter Care Teams Take Up Supervisor Relationship Specialty Start Date End Date Roc Alvarado MD PCP - General Family Medicine 03/02/20 12/17/23 documented as of this encounter
--- OUTSIDE RECORDS SUMMARY | 2024-02-26 16:33 | XMS_ITS | Encounter Summary ---
[place] [address] Care Team Providers Care Shore Hand Dredge Or Barge Name Role Phone Roc Alvarado MD Primary Care Provider [phone] Reason for Visit * Reason Onset Date Comments Pre Procedure Call 07/27/2020 Encounter Details Date Type Department Care Team (Late st Contact Info) Description 07/27/2020 Telephone Hematology [place] [phone] Talisha Muse RN Pre Procedure Call Social History Tobacco Use Types Packs/Day Years Used Date Smoking Tobacco: Never Smokeless Tobacco: Never Sex and Gender Information Value Date Recorded Sex Assigned at Not on file Gender Identity Not on file Sexual Orientation Not on file documented as of this encounter Miscellaneous Notes * Telephone Encounter - Talisha Muse RN - 07/27/2020 10:48 AM EDT Reason for call: PSA clinic appointment on __08/03/20 at 0800__. Scheduled for Bx at this time? Yes UroNav Meds/Allergies: NKA Anticoagulant medications: (Coumadin, Plavix, ASA, NSAIDS) No If yes instruct pt to contact PCP or prescribing physician for further instruction as to discontinuing and restarting anti-coagulant therapy for Biopsy. If unable to discontinue medication as per PCPpt to keep appointment and if biopsy warranted will be scheduled for a later date with bridging. Review OTC, herbal and vitamin supplements for potential anti-coag effect: (ginko biloba, von, fever few, garlic, herbal teas with supplements added, Vit C,) No If yes and pt started: pt to stop supplements for 1 week prior and 1 week after biopsy. Labs: Free PSA (must be at least 10 days prior to clinic) Most recent PSA result and date 07/22/20, 4.91 Have all labs faxed to Urology office (fax # [phone]). 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 No Travel outside the [place] in the past 6 months No Other MRI 07/22/20. Instructed to hold NSAIDs for 7 days prior to appointment. Will use Fleet enema morning of appointment. Patient Instructions/Information: Patient should eat breakfast. Patient to purchase Fleet Enema and use according to directions the morning of appointment if having a biopsy. Patient will meet with provider to discuss lab results and have a ANABEL. Registration is at Hem/Onc commercial credit reviewer [id number]. Patient understands and is able to verbalize back to this nurse the above information. Patient agrees to the POC, knows when and how to call if need arises. documented in this encounter Plan of Treatment Upcoming Encounters Date Type Department Care Team (Late st Contact Info) Description 05/21/2024 8:00 AM EST Procedure [place] [phone] Diony Huang MD [facility] [place] [address] 07/05/2024 9:00 AM EST Laboratory Appointment Lab [address] [place] [address] 07/05/2024 10:00 AM EST [place] [phone] Talisha Nino APRN [facility] [place] [address] documented as of this encounter Results * [...] Urology who performed multiple biopsies in the [address] [place] [address] location. UroNav fusion was used for this procedure. Thank you for letting us participate in the care of this patient. For questions regarding this report, please contact the number below. ? Olivia Oliveira, Staff Physician Electronically Signed Final Report ?? 08/03/2020 02:15 pm Narrative 08/03/2020 2:15 PM EDT Male Pelvis ? (Signed Final 08/03/2020 02:15 pm) PATIENT INFO: ID #: ? [id number] ?: ??[birth year] (65 yrs)(M) Name: ? DAKOTABritney SWARTZ ? Visit Date: 08/03/2020 08:26 am PERFORMED BY: Performed By: ? John Garcia RDMS Attending: ?Tee COLOR[place], Olivia Saha Referred By: ?DIONY ALONSO Location: ? [place] SERVICE(S) PROVIDED: UTRBXURO - Prostate Biopsy with UroNav Fusion ? [id number], [id number] - [id number] INDICATIONS: Prostate cancer, active surveillance, PSA 4.91, [...] 08/03/2020 02:15 pm) PATIENT INFO: ID #: [id number] : 57 (65 yrs)(M) Name: LIONEL SWARTZ Visit Date: 08/03/2020 08:26 am PERFORMED BY: Performed By: John Garcia RDMS Attending: Olivia Oliveira MD Referred By: DIONY ALONSO Location: [place] SERVICE(S) PROVIDED: UTRBXURO - Prostate Biopsy with UroNav Fusion [id number], [id number] - [id number] INDICATIONS: Prostate cancer, active surveillance, PSA 4.91, [...] Urology who performed multiple biopsies in the [address] [place] [address] location. UroNav fusion was used for this procedure. Thank you for letting us participate in the care of this patient. For questions regarding this report, please contact the number below. Olivia Oliveira, Staff Physician Electronically Signed Final Report 08/03/2020 02:15 pm Diony Alonso MD [facility] PROC ORDERABL ES documented in this encounter Visit Diagnoses Diagnosis Malignant neoplasm of prostate Malignant neoplasm of prostate documented in this encounter Care Teams Shore Hand Dredge Or Barge Relationship Specialty Start Date End Date Roc Alvarado MD PCP - General Family Medicine 03/02/20 12/17/23 documented as of this encounter
--- OUTSIDE RECORDS SUMMARY | 2024-02-26 16:33 | XMS_ITS | Encounter Summary ---
[place] [address] Care Team Providers Care Bottle House Quality Control Technician Name Role Phone Roc Alvarado MD Primary Care Provider [phone] Reason for Referral * Diagnostic Test (Routine) - Closed Specialty Diagnoses / Procedures Referred By Contac t Referred To Contact Radiology Diagnoses Degenerative disc disease, cervical Paresthesia Procedures MRI Cervical Spine wo Contrast (Generic) Roc Alvarado MD [address] [place] [address] [place] [address] [place] [address] Referral ID Status Reason Start Date Expiration Date V isits Requested Visits Authorized [id number] Closed Specialty Service Requested 09/22/2022 03/25/2024 1 1 Reason for Visit * Diagnostic Test (Routine) - Closed Specialty Diagnoses / Procedures Referred By Contac t Referred To Contact Radiology Diagnoses Degenerative disc disease, cervical Paresthesia Procedures MRI Cervical Spine wo Contrast (Generic) Roc Alvarado MD [address] [place] [address] [place] [address] [place] [address] Referral ID Status Reason Start Date Expiration Date V isits Requested Visits Authorized [id number] Closed Specialty Service Requested 09/22/2022 03/25/2024 1 1 Encounter Details Date Type Department Care Team (Latest Contact Info) Description 10/25/2022 6:13 PM EDT - 10/25/2022 11:59 PM EDT Hospital [place] [phone] Roc Alvarado MD [address] [place] [address] [place] [address] Degenerative disc disease, cervical; Paresthesia Discharge Disposition: Home Social History Tobacco Use [...] Sig Dispensed Refills Start Date End Date losartan (Cozaar) 25 mg Tablet Take 25 [...] AM EST Procedure [place] [address] Diony Huang MD [facility] [place] [address] 07/05/2024 9:00 AM EST Laboratory Appointment Lab [address] [place] [phone] 07/05/2024 10:00 AM EST [place] [address] Talisha Nino APRN [facility] [place] [address] documented as of this encounter Procedures Procedure Name Priority Date/Time Associated Diagnosis Comments MRI CERVICAL SPINE WO CONTRAST Routine 10/25/2022 7:08 PM EDT Degenerative disc disease, cervical Paresthesia documented in this encounter Results * MRI Cervical Spine wo Contrast (Generic) (10/25/2022 7:08 PM EDT) Anatomical Region Laterality Modality C-spine Magnetic Resonan ce Impressions 10/26/2022 4:24 PM EDT 1. ??Evidence of prior left-sided laminoplasty C4-C6, with patent spinal canal. 2. ??Myelomalacia spanning C4-C6 as above. 3. ??Multilevel uncovertebral arthropathy and moderate to severe neural foraminal stenoses as detailed. I have personally reviewed the image(s) and the resident's interpretation and agree with the findings, Elías Eng DO at 10/26/2022 4:24 PM Thank you for letting us participate in the care of this patient. ??If you are a health care provider and have any questions regarding this report, please contact the number below. ??For patients who have questions please contact the health home health care social worker that requested your imaging first. ? Narrative 10/26/2022 4:24 PM EDT EXAMINATION: MRI CERVICAL SPINE WO CONTRAST (GENERIC) CLINICAL HISTORY: 67 year old M with complex spine history including c2-7 fixation. Now with several months of increasing bilateral hand parathesias, positional, despite ongoing physical therapy TECHNIQUE: MRI of the cervical spine performed without intravenous contrast administration. COMPARISON: None FINDINGS: Susceptibility artifact noted, compatible with prior surgery, suggesting left-sided C4-C6 laminoplasty. No prior radiographs or CT available for comparison. There are no fractures identified. There is mild grade 1 retrolisthesis of C4 and C5 and C5 on C6 noted. No focal aggressive primary marrow lesions. No paraspinal masses identified. There is cord atrophy and central myelopathic signal change on both sides of the cord compatible with myelomalacia, between the C4-C5 disc level and C6-C7 disc level. Level specific findings as below: C2-C3: No significant spinal canal stenosis or foraminal narrowing. C3-C4: No significant central spinal canal stenosis. There is uncovertebral arthrosis which contributes to mild left and moderate right foraminal stenosis. C4-C5: Disc osteophyte complex and uncovertebral arthropathy contribute to mild spinal stenosis and moderate/severe bilateral neural foraminal narrowing. C5-C6: Disc osteophyte complex with potential posterior longitudinal ligament and ligamentum flavum thickening mildly indents the thecal sac contributing to mild spinal stenosis. Facet and uncovertebral arthropathy contribute to moderate/severe bilateral foraminal stenosis. C6-C7: Small disc osteophyte complex with mild spinal stenosis. Uncovertebral arthropathy contributes to moderate/severe bilateral foraminal stenosis. C7-T1: No significant spinal canal stenosis. Right-sided facet arthropathy contributes to mild foraminal stenosis. Procedure Note Elías Eng, DO - 10/26/2022 EXAMINATION: MRI CERVICAL SPINE WO CONTRAST (GENERIC) CLINICAL HISTORY: 67 year old M with complex spine history including c2-7 fixation. Nowwith several months of increasing bilateral hand parathesias, positional,despite ongoing physical therapy TECHNIQUE: MRI of the cervical spine performed without intravenous contrastadministration. COMPARISON: None FINDINGS: Susceptibility artifact noted, compatible with prior surgery, suggesting left-sided C4-C6 laminoplasty. No prior radiographs or CT available for comparison. There are no fractures identified. There is mild grade 1 retrolisthesis ofC4 and C5 and C5 on C6 noted. No focal aggressive primary marrow lesions. No paraspinal massesidentified. There is cord atrophy and central myelopathic signal change on both sidesof the cord compatible with myelomalacia, between the C4-C5 disc level and C6-C7disc level. Level specific findings as below: C2-C3: No significant spinal canal stenosis or foraminal narrowing. C3-C4: No significant central spinal canal stenosis. There isuncovertebral arthrosis which contributes to mild left and moderate right foraminalstenosis. C4-C5: Disc osteophyte complex and uncovertebral arthropathy contribute tomild spinal stenosis and moderate/severe bilateral neural foraminalnarrowing. C5-C6: Disc osteophyte complex with potential posterior longitudinalligament and ligamentum flavum thickening mildly indents the thecal saccontributing to mild spinal stenosis. Facet and uncovertebral arthropathy contribute to moderate/severe bilateral foraminal stenosis. C6-C7: Small disc osteophyte complex with mild spinal stenosis.Uncovertebral arthropathy contributes to moderate/severe bilateral foraminal stenosis. C7-T1: No significant spinal canal stenosis. Right-sided facetarthropathy contributes to mild foraminal stenosis. IMPRESSION 1. Evidence of prior left-sided laminoplasty C4-C6, with patent spinalcanal. 2. Myelomalacia spanning C4-C6 as above. 3. Multilevel uncovertebral arthropathy and moderate to severe neuralforaminal stenoses as detailed. I have personally reviewed the image(s) and the resident's interpretationand agree with the findings, Elías Eng DO at 10/26/2022 4:24 PM Thank you for letting us participate in the care of this patient. If youare a health care provider and have any questions regarding this report,please contact the number below. For patients who have questions please contactthe health home health care social worker that requested your imaging first. Roc Alvarado MD IMG MRI ORDERABLES documented in this encounter Visit Diagnoses Diagnosis Degenerative disc disease, cervical Degeneration of cervical intervertebral disc Paresthesia Disturbance of skin sensation documented in this encounter Care Teams Bottle House Quality Control Technician Relationship Specialty Start Date End Date Roc Alvarado MD PCP - General Family Medicine 03/02/20 12/17/23 documented as of this encounter
--- OUTSIDE RECORDS SUMMARY | 2024-02-26 16:33 | XMS_ITS | Encounter Summary ---
Author Organization [facility] Address [address] [place] [address] Care Team Providers Care Bale Sewer Name Role Phone Unavailable Primary Care Provider Unavailabl e Encounter Details Date Type Department Care Team (Late st Contact Info) Description 10/13/2022 Lab Requisition [facility] Pathology & Laboratory Medicine - [facility] [address] [place] [address] Outr Resulting Lab, Provider Social History Tobacco [...] Associated Diagnosis Comments PSA TOTAL, DIAGNOSTIC Routine 10/12/2022 8:50 EDT documented in this encounter Results * PSA TOTAL, DIAGNOSTIC (10/12/2022 8:50 EDT) PSA 3.4 <=4.5 ng/mL 10/13/2022 19:35 EDT [facility] Blood VENOUS BLOOD / Unknown 10/12/2022 8:50 EDT 10/13/2022 18:33 EDT Narrative [facility] - 10/13/2022 19:35 EDT NOTE: Serum PSA concentration should not be interpreted as absolute evidence for the presence or absence of malignant disease. Assayed on Siemens ADVIA Centaur XPT using chemiluminescent technology.??Values obtained by using different assay methods cannot be used interchangeably. Provider Outr Resulting Lab CHEMISTRY & BLOOD GAS ORDERABLES [facility] [address] [place] [address] documented in this encounter Visit Diagnoses Not on filedocumented in this encounter
--- OUTSIDE RECORDS SUMMARY | 2024-02-26 16:33 | XMS_ITS | Encounter Summary ---
[place] [address] Care Team Providers Care Supervisor Gluing Name Role Phone Roc Alvarado MD Primary Care Provider [phone] Reason for Referral * Consultation (Routine) - Closed Specialty Diagnoses / Procedures Referred By Contac t Referred To Contact [facility] Diagnoses DDD (degenerative disc disease), cervical Cervical foraminal stenosis w/myelomalacia/MRI 10/25/22 in e-DH/Tried PT Roc Alvarado MD [address] [place] [address] [place] [address] [facility] [place] [address] Referral ID Status Reason Start Date Expiration Date V isits Requested Visits Authorized [id number] Closed Consult, Test & Treat PCP Updated and/or Approved 09/06/2022 09/06/2023 1 1 Encounter Details Date Type Department Care Team (Late st Contact Info) Description 09/06/2022 Transcribe Orders eDH Incoming Referrals [phone] Roc Alvarado MD [address] [place] [address] [address] [place], [place] [id number] DDD (degenerative disc disease), cervical Social History Tobacco Use Types Packs/Day Years [...] AM EST Procedure [place] [phone] Diony Huang MD [facility] [place] [address] 07/05/2024 9:00 AM EST Laboratory Appointment Lab [address] [place] [phone] 07/05/2024 10:00 AM EST [place] [phone] Talisha Nino APRN [facility] [place] [address] Scheduled Referrals Name Type Priority Associated Diagnoses Orde r Schedule Referral to Spine Center Outpatient Referral Routine DDD (degenerative disc disease), cervical Ordered: 09/06/2022 documented as of this encounter Visit Diagnoses Diagnosis DDD (degenerative disc disease), cervical Degeneration of cervical intervertebral disc documented in this encounter Care Teams Supervisor Gluing Relationship Specialty Start Date End Date Roc Alvarado MD PCP - General Family Medicine 03/02/20 12/17/23 documented as of this encounter
--- OUTSIDE RECORDS SUMMARY | 2024-02-26 16:33 | XMS_ITS | Encounter Summary ---
[place] [address] Care Team Providers Care Senior Manufacturing Technician Name Role Phone Roc Alvarado MD Primary Care Provider [phone] Encounter Details Date Type Department Care Team (Late st Contact Info) Description 10/12/2023 Telephone [place] [phone] Flakita Dickinson, RN Social History Tobacco Use Types Packs/Day Years [...] encounter Miscellaneous Notes * Telephone Encounter - Flakita Dickinson, RN - 10/12/2023 2:13 PM EDT Prostate Biopsy Date/Time: 12/18/23 0900 Meds/Allergies: (reviewed and charted) yes Anticoagulant medications: (Coumadin, Plavix, ASA, NSAIDs, Eliquis, Farxiga, xarelto, tavenos, savaysa, arixtra, pradaxa, iprivask, angiomax, acora): NO If yes, review with PCP or analysis engineer to discuss bridging OTC, herbal and vitamin supplements for potential anti-coag effect: (ginko, von, feverfew, garlic, Vit E): NO If yes: stop 1 week prior to and after biopsy Labs: all patients to get PSA and % free within 30 days of prostate biopsy PSA: 3.8 - 05/23/23; will recheck on 11/24/23 when coming for MRI - 4.5 - 11/26 MRI: 11/24/23 PI-RADS 2 Patient Hx: Joint replacement: Bilateral knees over 10 years ago 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 Antibiotic use in the past 6 months: No Travel outside the [place] in the past 6 months: No Artificial heart valve: No If yes, need urine culture 1 week prior to prostate biopsy Performs CIC or has indwelling catheter: No If yes, need urine culture 1 week prior to prostate biopsy Other : Rectal swab (recommended if pt answers YES to living with a healthcare worker, flouroquinolone abx therapy in past 6 months, or foreign travel to 2nd or 3rd world country): Rectal swab scheduled for 11/27/23 - Negative for resistance Patient Instructions/Information: [place] at [employer] Professor 5B Eat breakfast Administer fleet enema night before or morning of biopsy Stop NSAIDs 7 days prior to biopsy Stop anticoagulation or bridging as needed You will receive antibiotics the morning of the procedure, 1 hour prior to prostate biopsy We will ask you for a urine sample that morning Plan to be here for 2-3 hours Patient understands and is able to verbalize back to this nurse the above information. Patient agrees to the plan, knows when and how to call if need arises. documented in this encounter Plan of Treatment Upcoming Encounters Date Type Department Care Team (Late st Contact Info) Description 05/21/2024 8:00 AM EST Procedure [place] [phone] Diony Huang MD [facility] [place] [address] 07/05/2024 9:00 AM EST Laboratory Appointment Lab [address] [place] [phone] 07/05/2024 10:00 AM EST Office [place] [phone] Talisha Nino APRN [facility] [place] [address] documented as of this encounter Visit Diagnoses Not on filedocumented in this encounter Care Teams Senior Manufacturing Technician Relationship Specialty Start Date End Date Roc Alvarado MD PCP - General Family Medicine 03/02/20 12/17/23 documented as of this encounter
--- OUTSIDE RECORDS SUMMARY | 2024-02-26 16:33 | XMS_ITS | Encounter Summary ---
Author Organization [facility] [place] [address] Care Team Providers Care Waxer Floor Name Role Phone Roc Alvarado MD Primary Care Provider [phone] Encounter Details Date Type Department Care Team (Latest Contact Info) Description 09/06/2023 Travel Social History Tobacco Use Types Packs/Day [...] AM EST Procedure [place] [phone] Diony Huang MD [facility] [place] [address] 07/05/2024 9:00 AM EST Laboratory Appointment Lab [address] [place] [phone] 07/05/2024 10:00 AM EST [place] [address] Talisha Nino APRN [facility] [place] [address] documented as of this encounter Visit Diagnoses Not on filedocumented in this encounter Care Teams Waxer Floor Relationship Specialty Start Date End Date Roc Alvarado MD PCP - General Family Medicine 03/02/20 12/17/23 documented as of this encounter
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
--- OUTSIDE RECORDS SUMMARY | 2024-02-26 16:33 | XMS_ITS | Encounter Summary ---
Author Organization [facility] [place] [address] Care Team Providers Care Production Counter Name Role Phone Roc Alvarado MD Primary Care Provider [phone] Encounter Details Date Type Department Care Team (Latest Contact Info) Description 11/10/2022 Travel Social History Tobacco Use Types Packs/Day [...] AM EST Procedure [place] [phone] [facility] [place] [place] [address] 07/05/2024 9:00 AM EST Laboratory Appointment Lab [address] [place] [phone] 07/05/2024 10:00 AM EST [place] [address] [facility] [place] [address] documented as of this encounter Visit Diagnoses Not on filedocumented in this encounter Care Teams Production Counter Relationship Specialty Start Date End Date Roc Alvarado MD PCP - General Family Medicine 03/02/20 12/17/23 documented as of this encounter
--- OUTSIDE RECORDS SUMMARY | 2024-02-26 16:33 | XMS_ITS | Encounter Summary ---
Author Organization [facility] [place] [address] [place] [address] Care Team Providers Care Connection Worker Name Role Phone Roc Alvarado MD Primary Care Provider [phone] Encounter Details Date Type Department Care Team (Late st Contact Info) Description 02/15/2022 [place] [phone] Pelon Todd Social History Tobacco Use Types Packs/Day Years Used Date Smoking Tobacco: Never Smokeless Tobacco: Never Sex and Gender Information Value Date Recorded Sex Assigned at Not on file Gender Identity Not on file Sexual Orientation Not on file documented as of this encounter Miscellaneous Notes * Telephone Encounter - Pelon Todd - 02/15/2022 8:56 AM EDT LMOM - Need to r/s 03/21 labs [address] FUV with Dr. Plummer - 02/25/22 available documented in this encounter Plan of Treatment Upcoming Encounters Date Type Department Care Team (Late st Contact Info) Description 05/21/2024 8:00 AM EST Procedure [place] [phone] Diony Huang MD [facility] [place] [address] 07/05/2024 9:00 AM EST Laboratory Appointment Lab [address] [place] [address] 07/05/2024 10:00 AM EST [place] [address] Talisha Nino APRN [facility] [place] [address] documented as of this encounter Visit Diagnoses Not on filedocumented in this encounter Care Teams Connection Worker Relationship Specialty Start Date End Date Roc Alvarado MD PCP - General Family Medicine 03/02/20 12/17/23 documented as of this encounter
--- OUTSIDE RECORDS SUMMARY | 2024-02-26 16:33 | XMS_ITS | Encounter Summary ---
Author Organization [facility] [place] [address] Care Team Providers Care Fraternity Adviser Name Role Phone Roc Alvarado MD Primary Care Provider [phone] Reason for Referral * Surgical (Routine) - Closed Specialty Diagnoses / Procedures Referred By Felix acevedo Referred To Contact Diagnoses Carpal tunnel syndrome, bilateral Procedures STEROID INJECTION Diony Huang MD [facility] [place] [address] Referral ID Status Reason Start Date Expiration Date V isits Requested Visits Authorized [id number] Closed Consult, Test & Treat 09/06/2023 09/05/2024 1 1 Reason for Visit * Reason Comments Advice Only Carpal tunnel both w rist * Consultation (Routine) - Closed Specialty Diagnoses / Procedures Referred By Felix acevedo Referred To Contact Plastic Surgery Diagnoses Carpal tunnel syndrome, bilateral upper limbs Jaz Sy MD [address] [place] [address] Diony Huang MD [facility] [place] [address] Referral ID Status Reason Start Date Expiration Date V isits Requested Visits Authorized [id number] Closed Consult, Test & Treat 08/22/2023 08/21/2024 1 1 Encounter Details Date Type Department Care Team (Late st Contact Info) Description 09/06/2023 10:15 AM EDT Office Visit Plastic Surgery at [facility] [address] [place] [address] Diony Huang MD [facility] [place] [address] Carpal tunnel syndrome, bilateral Social History Tobacco Use Types Packs/Day Years [...] Sign Reading Time Taken Comments Blood Pressure - - Pulse - - Temperature - - Respiratory Rate - - Oxygen Saturation - - Inhaled Oxygen Concentration - - Weight 80.3 kg (177 lb) 09/06/2023 10:10 AM EDT Height 170.2 cm (5' 7) 09/06/2023 10:10 AM EDT Body Mass Index 27.72 09/06/2023 10:10 AM EDT documented in this encounter Patient Instructions * Patient Instructions* Isabel Doss, LISA - 09/06/2023 10:15 AM EDT A corticosteroid, or steroid, injection is used to reduce inflammation in tendons or joints. It is often used to treat problems such as arthritis, tendinitis, and bursitis. These medicines can be injected directly into a painful, inflamed joint. They can also help reduce inflammation of a bursa, a s ac of fluid that cushions and lubricates areas where tendons, ligaments, skin, muscles, or bones rub against each other. A steroid injection can sometimes help with short-term pain relief when other treatments haven't worked. If steroid injections help, symptoms may improve for weeks or months. After Your Injection: Some people may feel more pain after being injected. This is normal, and it will go away soon. It may take 2-3 days to notice the effects of the injection. 1. Avoid activities that may strain the area for the next few days, but keep your fingers moving asinstructed. 2. Taking an anti-inflammatory medicine to reduce pain, swelling, or inflammation may help in the next few days. These include ibuprofen (Advil, Motrin) and naproxen (Aleve). Read and follow all instructions on the label. 3. If you have dressings over the injection site, keep them clean and dry. You may remove them whenyour doctor tells you to. Call your doctor now or seek immediate medical care if: You have signs of infection, such as: Increased pain, swelling, warmth, or redness. Red streaks leading from the site. Pus draining from the site. Swollen lymph nodes in your neck, armpits, or groin. A fever. Watch closely for changes in your health, and be sure to contact your doctor if you have any problems. Minor Room Procedure Instructions You were given written and verbal preoperative instructions today. If you are a smoker, we ask that you stop at least 2 months prior to your surgical date and remain nicotine free for at least a month after surgery. Smoking can impair healing and increase your chance of infection. To prepare for your upcoming procedure: Two Weeks prior to Surgery YOU DO NOT NEED TO STOP any aspirin or ibuprofen products before your surgery. Stop Garlic supplements, Ginseng, Ginkgo, Tumeric and Lane's Wort and any other herbals. You mayresume taking 48 hours after surgery. Medication Specific Instructions N/A One week prior to surgery Please call if you feel ill, have cold or fever, have a rash or breaks in skin near your surgical site. Stay hydrated. Three days before surgery Do not shave near your surgical site One day before surgery Shower the night before and the morning of surgery using an antibacterial soap (Dial or Lever 2000)or Hibiclens wash and Hand Surgery - Scrub your hand with an antibacterial soap for several minutesthe night before and morning of surgery. Trim your fingernails and scrub them with a nail brush. DONOT wear any rings, nail english or artifical nails. Day of Procedure A hole digger truck driver is recommended but not required. There are No dietary restrictions. You may eat and drink up until the time of your procedure. DO NOT wear any jewelry, makeup or artificial nails. DO NOT apply any lotions, powders or deodorants near or at surgical site. Do wear comfortable, loose fitting clothes. You will be awake during this procedure. The Surgeon will inject the area of your procedure with a local anesthetic. This will sting/burn. During the procedure, you will have a sensation of pressure but not pain. If you are having hand surgery, a tight cuff may be put on the surgical arm to help prevent bleeding. After your procedure, you will be given written and verbal instructions on how to care for your surgical site. Contact Information: During regular office hours (Monday- Monday, non-holiday 8:00 am- 5:00 pm) For an appointment or insurance questions [phone] For questions pertaining to your surgical date [phone] For nursing related questions [phone] On weekends, holidays or after office hours: Call [phone] and ask the gasoline locomotive crane operator to page the Plastic Surgery Resident station worker. documented in this encounter Progress Notes * Miriam Rome - 09/06/2023 10:15 AM EDT Plastic Surgery Hand Consultation Note Provider: Diony Huang MD. I have been asked to see the patient by Jaz Sy MD CC: Hand numbness Occupation: [employer] HPI: Jerad Swartz is a 68 y.o. male who presents with bilateral numbness of hands. He reports the symptoms have been present for some time (10+ years). Patient would like to know his surgical options. Patient shares that he will be retiring in April 2024. Patient is accompanied today by his , Poonam. Patient is finding it painful to play his guitar. Patient is active biking and hiking. Patient has been wearing splints at night. Patient is planning on going to a 10-day silent retreat after his procedure and asks if that would be ok. Patient shares that he it was recommended that he have a tendon biopsy as he has a family hx of amyloidosis. Examination: There were no vitals taken for this visit. No acute distress Bilateral Upper extremity: R hand: No thenar atrohpy, APB intact and strong, sensation to index finger decreased in comparisonto small, +compression test, mild synovitis noted just proximal to CT. L hand: No thenar atrohpy, APB intact and strong, sensation to index finger decreased in comparisonto small, +compression test, mild synovitis noted just proximal to CT. Procedure: After verbal informed consent, under sterile conditions Kenalog 40 mg (1.0 cc of 40 mg/cc) (1cc) was injected into the bilateral carpal canal. Pt tolerated injection well, no immediate complication. See MAR Diagnostic Testing: EMG from 04/20/23 Moderate to severe bilateral CTS Impression: Jerad Swartz is a 68 y.o. male patient with bilateral carpal tunnel syndrome. We discussed potential treatment options to address excessive swelling in the flexor tendons at the wrist, including steroid injections or surgical release. Although steroids are effective at reducing tendon inflammation, they are temporary and gone from the system after 6 weeks. Symptoms can then returnat this time if tendon swelling returns. We also discussed surgical decompression of the median nerve. This procedure can be done under either a local or general anesthetic. Following surgery the patient can use their hands but should avoidheavy direct pressure to their incision line (push ups, yoga) for 3 weeks. 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 Plan: Schedule procedure May 2024 [facility] Procedure: Carpal Tunnel Release (Bilateral--left open (tenosynovial biopsy, right US) Timeframe: elective Time allotted: 1 hour CPT: 42580 Follow up: 1 week I, Miriam Rome, have performed the documentation for this encounter in the presence of and acting as a scribe for Diony Huang MD. documented in this encounter Procedure Notes * Diony Huang MD - 09/06/2023 10:15 AM EDTAssociated Order(s): STEROID INJECTION Pre-Procedure Diagnose(s): Carpal tunnel syndrome, bilateral Procedure: After verbal informed consent, under sterile conditions Kenalog 40 mg (1.0 cc of 40 mg/cc) (1cc) was injected into the bilateral carpal canal. Pt tolerated injection well, no immediate complication. See MAR documented in this encounter Plan of Treatment Upcoming Encounters Date Type Department Care Team (Late st Contact Info) Description 05/21/2024 8:00 AM EST Procedure [place] [phone] Diony Huang MD [facility] [place] [address] 07/05/2024 9:00 AM EST Laboratory Appointment Lab [address] [phone] 07/05/2024 10:00 AM EST [place] [phone] Talisha Nino APRN [facility] [place] [address] documented as of this encounter Procedures Procedure Name Priority Date/Time Associated Diagnosis Comments STEROID INJECTION Routine 09/06/2023 10: 15 AM EDT Carpal tunnel syndrome, bilateral documented in this encounter Results * STEROID INJECTION (09/06/2023 10:15 AM EDT) Narrative Diony Huang MD - 09/06/2023 10:15 AM EDT Diony Huang MD ? 09/07/2023 ??7:45 AM Procedure: After verbal informed consent, under sterile conditions Kenalog 40 mg (1.0 cc of 40 mg/cc) (1cc) was injected into the bilateral carpal canal. ??Pt tolerated injection well, no immediate complication. See MAR Diony Huang MD PROCEDURE/MINOR SHMUEL GICAL ORDERABLES documented in this encounter Visit Diagnoses Diagnosis Carpal tunnel syndrome, bilateral Carpal tunnel syndrome documented in this encounter Administered Medications Inactive Administered Medications - up to 3 most recent administrations Medication Order MAR Action Action Date Dose Rate Site triamcinolone acetonide (Kenalog-40) (40 mg/mL) injection 40 mg 40 mg, Intramuscular, ONCE, 1 dose, On Mon09/06/23 at 1115, Routine Given 09/06/2023 10:48 AM EDT 40 mg documented in this encounter Care Teams Fraternity Adviser Relationship Specialty Start Date End Date Roc Alvarado MD PCP - General Family Medicine 03/02/20 12/17/23 documented as of this encounter
--- OUTSIDE RECORDS SUMMARY | 2024-02-26 16:33 | XMS_ITS | Encounter Summary ---
Author Organization [facility] [place] [address] Care Team Providers Care Homicide Detective Name Role Phone Roc Alvarado MD Primary Care Provider [phone] Encounter Details Date Type Department Care Team (Latest Contact Info) Description 04/20/2023 Travel Social History Tobacco Use Types Packs/Day [...] AM EST Procedure [place] [phone] Diony Huang MD [facility] [place] [address] 07/05/2024 9:00 AM EST Laboratory Appointment Lab [address] [place] [phone] 07/05/2024 10:00 AM EST [place] [address] Talisha Nino APRN [facility] [place] [address] documented as of this encounter Visit Diagnoses Not on filedocumented in this encounter Care Teams Homicide Detective Relationship Specialty Start Date End Date Roc Alvarado MD PCP - General Family Medicine 03/02/20 12/17/23 documented as of this encounter
--- OUTSIDE RECORDS SUMMARY | 2024-02-26 16:33 | XMS_ITS | Encounter Summary ---
[place] [address] Care Team Providers Care Regulator Operator Name Role Phone Roc Alvarado MD Primary Care Provider [phone] Reason for Referral * Diagnostic Test (Routine) - Closed Specialty Diagnoses / Procedures Referred By Felix acevedo Referred To Contact Radiology Diagnoses Secondary malignant neoplasm of prostate Procedures MRI Pelvis wwo (Prostate) Roc Plummer MD [facility] [place] [address] [place] [address] Referral ID Status Reason Start Date Expiration Date V isits Requested Visits Authorized [id number] Closed Specialty Service Requested 07/21/2020 12/16/2020 1 1 Reason for Visit * Consultation (Urgent) - Specialty Diagnoses / Procedures Referred By Felix acevedo Referred To Contact Urology Diagnoses Malignant neoplasm of prostate Roc Alvarado MD [address] [place] [address] [place] [address] [facility] [place] [address] Referral ID Status Reason Start Date Expiration Date V isits Requested Visits Authorized [id number] Consult, Test & Treat Connection [facility] PCP Updated and/or Approved 03/02/2020 08/31/2020 6 6 Encounter Details Date Type Department Care Team (Late st Contact Info) Description 03/20/2020 3:20 PM EST Office Visit Urology at [facility] [place] [address] Roc Plummer MD [facility] [place] [address] Secondary malignant neoplasm of prostate (Primary Dx) Social History Tobacco Use Types Packs/Day Years Used Date Smoking Tobacco: Never Smokeless Tobacco: Never Sex and Gender Information Value Date Recorded Sex Assigned at Not on file Gender Identity Not on file Sexual Orientation Not on file documented as of this encounter Last Filed Vital Signs Vital Sign Reading Time Taken Comments Blood Pressure 142/84 03/20/2020 4:04 PM EST Pulse 81 03/20/2020 4:04 PM EST Temperature - - Respiratory Rate - - Oxygen Saturation - - Inhaled Oxygen Concentration - - Weight - - Height - - Body Mass Index - - documented in this encounter Progress Notes * Roc Plummer MD - 03/20/2020 3:20 PM EST Patient Name: Jerad Swartz Date of Service: 03/20/2020 Primary Care Provider: Roc Alvarado MD Reason for Visit: Jerad Swartz is a 64 y.o. male who is referred for evaluation of prostate cancer The patient had a urologist in [facility]. [facility] [place] ~01/2019 3.8 06/2019 4.0 10/2019 4.2 01/2020 4.4 06/2019 Biopsy 16 cores 05/26 suspicious 05/26 <1 % Santhosh score 3+3=6 Currently the patient has a weak stream with stopping and starting with post void dribbling. He hasminimal irritative symptoms with minimal frequencyand nocturia x 1. The bladder is not always emptied completely.He has had low PVR's There is X hematuria. He has been on Tamulosin for ~ 1 year. Erectile function is not great great. Not adequate for intercourse. In sufficient strength and duration Appetite is good weight is stable. There [...] years Systems review: Hikes ~ 2-3 miles/daily Yoga HEENT: Denies problems with vision, hearing, runny nose, epistaxis, sore throat, hoarseness Cardiovascular: Denies Chest pain, palpitations, shortness of breath, ankle swelling, claudication Respiratory: Denies cough, phlegm, hemoptysis,wheeze, Gastrointestinal: Denies nausea, difficulty swallowing, vomiting, hematemesis, constipation, diarrhea, blood per rectum Neurological: Denies dizziness, double vision, headache, weakness of one side of the body or the other,sudden loss of vision in one eye, Bones and muscles: Denies bone pain, radiating pain, muscle weakness or sore ness. All other systems negative. Physical Exam: Vital Signs are reviewed. .The patient appears well developed and healthy. There is no lymphadenopathy The abdomen is benign without masses. There are no visible or palpable hernias. The liver, spleen and kidneys are impalpable. External genitalia are normal. The scrotal skin is healthy and there are no masses The phallus has no masses scaring or abnormality The urethra is in normal position without discharge The testis are normal without masses The epididymis are normal without masses Rectal exam Anus and perineum are visibly normal Rectal tone normal. No palpable masses in the rectal vault. Prostate is 50 grams and symmetrical without tenderness or masses. A little more prominant at the right apex. Not suspicous seminal vesicals are not palpable. Lab values are noted X-rays None Impression: #1: [id number] Grade Group 1 Santhosh 3+3=6 Very low risk Prostate cancer #2: LUTS #3: ED Plan: Cialis for ED Increase Tamulosin to 0.8mg for LUTS Discussed that is recommended for VLR prostate cancer. Discussed need to obtain records to confirm risk categorization. Discussed schemas for Active surveillance. We will plan a PSA/ANABEL/MRI and Biopsy in 07/2019 All questions answered. documented in this encounter Plan of Treatment Upcoming Encounters Date Type Department Care Team (Late st Contact Info) Description 05/21/2024 8:00 AM EST Procedure visit [place] [phone] Diony Huang MD [facility] [place] [address] 07/05/2024 9:00 AM EST Laboratory Appointment Lab [address] [place] [phone] 07/05/2024 10:00 AM EST Office [place] [address]-1000 Talisha Nino APRN [facility] [place] [address] documented as of this encounter Results * MRI Pelvis wwo [...] Hammad BJ1, Melvin PA1, Trish PL1, Vamsi B1. ??A Grading System for the Assessment of Risk of Extraprostatic Extension of Prostate Cancer at Multiparametric MRI. Radiology. 2019 Jul;290(3):709-719. doi: 10.1148/radiol.[id number]. Epub 2018Jun 05. I have personally reviewed the image(s) and the resident's interpretation and agree with the findings, Dionisio Henry MD at 07/22/2020 4:03 PM Thank you for letting us participate in the care of this patient. For questions regarding this report, please contact the number below. ? Electronically signed by: Dionisio Henry MD, [facility] ([phone]), at 07/22/2020 4:03 PM Narrative 07/22/2020 4:03 PM EST EXAMINATION: MRI PELVIS WWO (PROSTATE) CLINICAL HISTORY: Very low risk prostate cancer on Active Surveillance. Please identify targets for a UroNav biopsy REASON FOR PROSTATE EXAM: Very low risk prostate cancer on active surveillance HAS PATIENT HAD PREVIOUS BIOPSY?:Yes, Santhosh 3+3 on 06/2019 MOST RECENT PSA LEVEL:4.91 [...] on activesurveillance HAS PATIENT HAD PREVIOUS BIOPSY?:Yes, Santhosh 3+3 on 06/2019 MOST RECENT PSA LEVEL:4.91 [...] cancer is highly likely jassi present) References: Bandar S1, Eliza JH1, Mcdonough S1, Porter C1, Gonzales J1, Czarniecki M1,Gold S1, Moses G1, Rayn K1, May MJ1, Wood BJ1, Charles PA1, Trish PL1, Vamsi B1.A Grading System for the Assessment of Risk of Extraprostatic Extension of Prostate Cancer at Multiparametric MRI. Radiology. 2019Mar;290(3):709-719. doi: 10.1148/radiol.[id number]. Epub 2018Jun 05. I have personally reviewed the image(s) and the resident's interpretationand agree with the findings, Dionisio Henry MD at 07/22/2020 4:03 PM Thank you for letting us participate in the care of this patient. Forquestions regarding this report, please contact the number below. Electronically signed by: Dionisio Henry MD, [facility]([phone]), at 07/22/2020 4:03 PM Roc Plummer MD IMG MRI ORDERABLES * (ABNORMAL) PSA (Ultrasensitive) (07/22/2020 12:01 PM EST) Prostate Specific Antigen (Ultrasensitive ) 4.91(H) 0.00 - 4.00 ng/mL [facility] Comment: PLEASE NOTE: The above reference interval is intended for healthy males with an intact prostate. Values within this reference interval may indicate recurrence in men who have undergone radical prostatectomy. 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
--- OUTSIDE RECORDS SUMMARY | 2024-02-26 16:33 | XMS_ITS | Encounter Summary ---
Author Organization [facility] [place] [address] Care Team Providers Care Gas Derrick Operator Name Role Phone Roc Alvarado MD Primary Care Provider [phone] Encounter Details Date Type Department Care Team (Late st Contact Info) Description 08/11/2020 Telephone [place] [phone] Diony De La Cruz MD [facility] [place] [address] Social History Tobacco Use Types Packs/Day Years Used Date Smoking Tobacco: Never Smokeless Tobacco: Never Sex and Gender Information Value Date Recorded Sex Assigned at Not on file Gender Identity Not on file Sexual Orientation Not on file documented as of this encounter Miscellaneous Notes * Telephone Encounter - Dorothea Brush - 08/11/2020 4:45 PM EDT Patient calls looking for results of Prostate Biopsy. documented in this encounter Plan of Treatment Upcoming Encounters Date Type Department Care Team (Late st Contact Info) Description 05/21/2024 8:00 AM EST Procedure [place] [phone] Diony Huang MD [facility] [place] [address] 07/05/2024 9:00 AM EST Laboratory Appointment Lab [address] [place] [address] 07/05/2024 10:00 AM EST Office [place] [address] Talisha Nino APRN [facility] [place] [address] documented as of this encounter Visit Diagnoses Not on filedocumented in this encounter Care Teams Gas Derrick Operator Relationship Specialty Start Date End Date Roc Alvarado MD PCP - General Family Medicine 03/02/20 12/17/23 documented as of this encounter
--- OUTSIDE RECORDS SUMMARY | 2024-02-26 16:33 | XMS_ITS | Encounter Summary ---
Author Organization [facility] Address [facility] [address] Care Team Providers Care Computer Science Teacher Name Role Phone Roc Alvarado MD Primary Care Provider [phone] Encounter Details Date Type Department Care Team (Late st Contact Info) Description 08/12/2020 [place] [address] Diony De La Cruz MD [facility] [place] [address] Social History Tobacco Use Types Packs/Day Years Used Date Smoking Tobacco: Never Smokeless Tobacco: Never Sex and Gender Information Value Date Recorded Sex Assigned at Not on file Gender Identity Not on file Sexual Orientation Not on file documented as of this encounter Miscellaneous Notes * Telephone Encounter - Diony De La Cruz MD - 08/12/2020 2:49 PM EDT Called Mr. Swartz to review pathology from his recent prostate biopsy. He is on active surveillance and followed by Dr. Plummer. I explained that his biopsy showed atypical glands but no definitive cancer. I explained that this does not mean that the cancer is gone, but it is a good sign that nothing bigger was missed on the first biopsy, that it has not progressed, and that he can continue with active surveillance. He will f/u with Dr. Plummer in 6mos with PSA prior. Patient understands and agrees with the above plan. All questions answered. Diony De La Cruz MD 08/12/2020 2:49 PM documented in this encounter Plan of Treatment Upcoming Encounters Date Type Department Care Team (Late st Contact Info) Description 05/21/2024 8:00 AM EST Procedure [place] [phone] Diony Huang MD [facility] [place] [address] 07/05/2024 9:00 AM EST Laboratory Appointment Lab [address] [place] [phone] 07/05/2024 10:00 AM EST Office [place] [phone] Talisha Nino APRN [facility] [place] [address] documented as of this encounter Visit Diagnoses Diagnosis Malignant neoplasm of prostate documented in this encounter Care Teams Computer Science Teacher Relationship Specialty Start Date End Date Roc Alvarado MD PCP - General Family Medicine 03/02/20 12/17/23 documented as of this encounter
--- OUTSIDE RECORDS SUMMARY | 2024-02-26 16:33 | XMS_ITS | Encounter Summary ---
Author Organization [facility] Address [facility] Rachel [address]dez [place] [address] Care Team Providers Care Nurse Companion Name Role Phone Roc Alvarado MD Primary Care Provider [phone] Encounter Details Date Type Department Care Team (Late st Contact Info) Description 07/23/2020 [place] [address] Roc Plummer MD [facility] [place] [address] Social History Tobacco Use Types Packs/Day Years Used Date Smoking Tobacco: Never Smokeless Tobacco: Never Sex and Gender Information Value Date Recorded Sex Assigned at Not on file Gender Identity Not on file Sexual Orientation Not on file documented as of this encounter Miscellaneous Notes * Telephone Encounter - Blanche Carter APRN - 07/27/2020 1:20 PM EDT I called this patient today and discussed his diagnosis below. He understands the rationale for hisuse and his history of prostate cancer. Use of the word malignancy. He is content and will pursue biopsy as planned, 08/03/[address] De La Cruz. * Telephone Encounter - Dorothea Brush - 07/23/2020 1:01 PM EST Patient calls concerned by what he sees his MRI listed as on his portal. It states Malignant Neoplasm of Prostate. This made him very uneasy seeing this and thought I'd of something else and hewould like to talk to someone before talking to his . Patient saw Dr. Plummer in March, is scheduled for a biopsy with Dr. De La Cruz on 08/03/20 If someone could give him a call at [phone] documented in this encounter Plan of Treatment Upcoming Encounters Date Type Department Care Team (Late st Contact Info) Description 05/21/2024 8:00 AM EST Procedure [place] [phone] Diony Huang MD [facility] [place] [address] 07/05/2024 9:00 AM EST Laboratory Appointment Lab [address] [phone] 07/05/2024 10:00 AM EST Office [place] [phone] Talisha Nino APRN [facility] [place] [address] documented as of this encounter Visit Diagnoses Not on filedocumented in this encounter Care Teams Nurse Companion Relationship Specialty Start Date End Date Roc Alvarado MD PCP - General Family Medicine 03/02/20 12/17/23 documented as of this encounter
--- OUTSIDE RECORDS SUMMARY | 2024-02-26 16:33 | XMS_ITS | Encounter Summary ---
Author Organization [facility] Address [facility] [place] [address] Care Team Providers Care Underwriting Intern Name Role Phone Roc Alvarado MD Primary Care Provider [phone] Encounter Details Date Type Department Care Team (Latest Contact Info) Description 04/11/2022 11:40 AM EST TH Visit (TeleHealth) [place] [address] Roc Plummer MD [facility] [place] [address] Malignant neoplasm of prostate (Primary Dx) Social History Tobacco Use Types Packs/Day Years Used Date Smoking Tobacco: Never Smokeless Tobacco: Never Sex and Gender Information Value Date Recorded Sex Assigned at Not on file Gender Identity Not on file Sexual Orientation Not on file documented as of this encounter Progress Notes * Roc Plummer MD - 04/11/2022 11:40 AM EST Patient Name: Jerad Swartz Date of Service: 04/11/2022 Primary Care Provider: Roc Alvarado MD Reason for Visit: Jerad Swartz is a 66 y.o. male who comes for f/u of prostate cancer. He is onActive surveillance The patient had a urologist in [facility]. UrologistDr Reed PSA ~01/2019 3.8 06/2019 4.0 10/2019 4.2 01/2020 4.4 07/2020 4.91 08/2021 5.11 02/2022 4.7 06/2019 Biopsy 16 cores 05/26 suspicious 05/26 <1 % Santhosh score 3+3=6 07/2020 MR PiRADS 4. No extracapsular disease. Vol 55 07/2020 Biopsy: No clear evidenc of malignancy M - Prostate, fusion directed lesion ??: Atypical glands are present in 2 of 3 biopsy cores, see discussion. DISCUSSION Part M: In 2 of 3 the biopsy cores, a portion of cores are involved with glands ??with foamy cytoplasm. Immunostain shows most of the foamy glands with partial or ??patchy staining for the basal cell and weak cytoplasmic staining for p504S. Rare ??small??foamy glands are lack of basal cell staining which may represent tangential ??sections, but the possibility of a minute focus of [place] score 3 glands can not be ??entirely excluded. Currently the patient has some variation [...] drinks 1 per day Tobacco: None since 20s ~ 10 pack years Systems review: Hikes ~ 2-3 miles/daily [place] weakness or sore ness. All other systems negative. Physical Exam: Not examined today 08/2021 Prostate is 50 grams and symmetrical without tenderness or masses. A little more prominant at the right apex. Not suspicous seminal vesicals are not palpable. No change Lab values are noted X-rays None Impression: #1: [id number] Grade Group 1 Santhosh 3+3=6 Very low risk Prostate cancer #2: LUTS #3: ED Plan: No evidence of progression. COntinue Active surveillance. 6 months PSA and ANABEL All questions answered. documented in this encounter Plan of Treatment Upcoming Encounters Date Type Department Care Team (Late st Contact Info) Description 05/21/2024 8:00 AM EST Procedure [place] [address] Diony Huang MD [facility] [place] [address] 07/05/2024 9:00 AM EST Laboratory Appointment Lab [place] [phone] 07/05/2024 10:00 AM EST Office [place] [phone] Talisha Nino APRN [facility] [place] [address] documented as of this encounter Results * (ABNORMAL) PSA (Ultrasensitive) (10/17/2022 3:00 PM EDT) Prostate Specific Antigen (Ultrasensitive) 4.85(H) 0.00 - 4.00 ng/mL [facility] Comment: PLEASE NOTE: The above [...] In Lab Roc Plummer MD CHEMISTRY ORDERABLES [facility] [place] [address] documented in this encounter Visit Diagnoses Diagnosis Malignant neoplasm of prostate- Primary documented in this encounter Care Teams Underwriting Intern Relationship Specialty Start Date End Date Roc Alvarado MD PCP - General Family Medicine 03/02/20 12/17/23 documented as of this encounter
--- OUTSIDE RECORDS SUMMARY | 2024-02-26 16:33 | XMS_ITS | Encounter Summary ---
Author Organization [facility] Address [address] [place] [address] Care Team Providers Care Rolled Gold Plater Name Role Phone Unavailable Primary Care Provider Unavailabl e Encounter Details Date Type Department Care Team (Late st Contact Info) Description 05/24/2023 Lab Requisition [facility] Pathology & Laboratory Medicine - [facility] [address] [place] [address] Outr Resulting Lab, Provider Social History Tobacco [...] Associated Diagnosis Comments PSA TOTAL, DIAGNOSTIC Routine 05/23/2023 14:54 EST documented in this encounter Results * PSA TOTAL, DIAGNOSTIC (05/23/2023 14:54 EST) PSA 3.8 <=4.5 ng/mL 05/24/2023 18:03 EST [facility] Blood VENOUS BLOOD / Unknown 05/23/2023 14:54 EST 05/24/2023 17:01 EST Narrative [facility] - 05/24/2023 18:03 EST NOTE: Serum PSA concentration should not be interpreted as absolute evidence for the presence or absence of malignant disease. Assayed on Siemens ADVIA Centaur XPT using chemiluminescent technology.??Values obtained by using different assay methods cannot be used interchangeably. Provider Outr Resulting Lab CHEMISTRY & BLOOD GAS ORDERABLES [facility] [address] [place] [address] documented in this encounter Visit Diagnoses Not on filedocumented in this encounter
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
--- OUTSIDE RECORDS SUMMARY | 2024-02-26 16:33 | XMS_ITS | Encounter Summary ---
Author Organization [facility] Address [facility] [place] [address] Care Team Providers Care Public Improvement Inspector Name Role Phone Roc Alvarado MD Primary Care Provider [phone] Encounter Details Date Type Department Care Team (Latest Contact Info) Description 08/03/2020 8:00 AM EDT Procedure visit H[place]ology [place] [address] Diony De La Cruz MD [facility] [address] Malignant neoplasm of prostate Social History Tobacco Use Types Packs/Day Years Used Date Smoking Tobacco: Never Smokeless Tobacco: Never Sex and Gender Information Value Date Recorded Sex Assigned at Not on file Gender Identity Not on file Sexual Orientation Not on file documented as of this encounter Last Filed Vital Signs Vital Sign Reading Time Taken Comments Blood Pressure 150/76 08/03/2020 7:52 AM EDT Pulse 78 08/03/2020 7:52 AM EDT Temperature 36.6 ??C (97.9 ??F) 08/03/2020 7:52 AM ED T Respiratory Rate 18 08/03/2020 7:52 AM EDT Oxygen Saturation 99% 08/03/2020 7:52 AM EDT Inhaled Oxygen Concentration - - Weight 86.1 kg (189 lb 13.1 oz) 08/03/2020 7:52 AM EDT Height 168.5 cm (5' 6.34) 08/03/2020 7:52 AM ED T Body Mass Index 30.32 08/03/2020 7:52 AM EDT documented in this encounter Patient Instructions * Patient Instructions* Talisha Muse RN - 08/03/2020 8:00 AM EDT PROSTATE BIOPSY DISCHARGE INFORMATION You will get a call next week with your biopsy pathology. Your pathology result may be released to your [facility] account before we have had a chance to contact you. You should feel free to check your [facility] if you would like to see if [...] if you experience any of the following: ?? You see blood in your urine, bowel movements, or semen outside of the timeframe listed below. ?? You have a temperature greater than 101.5 degrees. ?? You start to pass large clots of blood in your urine or it turns the color of tomato juice. ?? You are having increasing pain. Your doctor may be reached at weekdays from 8 AM to 5 PM. If you should develop any of these symptoms after these hours, please call the hospital caltrans equipment operator at and ask to have the Urology Resident paged or report to the Emergency Department. What do I need to watch out for after the biopsy? ?? You will almost certainly have some blood in your urine. This will generally be gone within 48 hours. However, it may last on and off for up to two weeks. ?? You will almost certainly have some blood in your bowels. This will generally be gone within 48 hours. However, it may last on and off for up to two weeks. ?? You will almost certainly have some blood in your semen or sperm. This may last on and off for up to six weeks. ?? If you have been instructed to take an antibiotic in addition to the antibiotic given to you on the clinic day, please finish the remainder of any prescription ordered. Are there any restrictions after the prostate biopsy? ?? You should take it easy after the biopsy until the blood clears in your urine and stool. We suggest no heavy lifting, straining, or sports until after you stop seeing blood in the urine or stool. You should not have sexual activity for 48 hours after the biopsy. ?? As long as you feel okay, you should be able to drive yourself home from the biopsy. ?? We recommend that you bring someone with you but this is not absolutely necessary. ?? You may resume aspirin and other medications containing aspirin or NSAIDS (Motrin, Advil, naprosyn, etc.) one week after your biopsy. ?? If you are on a blood thinner, such as Coumadin, heparin, or fragmin, please contact your Primary Care Provider after the procedure to see when they wish you to resume medications. It is importantyou do this because some medications will require [...] documented in this encounter Progress Notes * Talisha Muse RN - 08/03/2020 8:00 AM EDT Prostate IPSS and MIKE(Pt Entered): Today's answers and scores Prostate Scores and Responses 07/27/2020 Confidence, level - past 6 months Moderate Penetration - past 6 months Most times (much more than half the time) Penetration, maintain - past 6 months Most times (much more than half the time) Erection, maintain - past 6 months Difficult Sexual satisfaction - past 6 months Sometimes (about half the time) Sexual Health in Men 17 (MILD ED) Incomplete emptying Less than half the time Frequency Less than 1 time in 5 Intermittency Less than 1 time in 5 Urgency Less than 1 time in 5 Weak Stream About half the time Straining Not at all Nocturia 4 times Quality of life Mixed - about equally satisfied and dissatisfied Total IPSS Score 12 (MODERATE LUTS) * Diony eD La Cruz MD - 08/03/2020 8:00 AM EDT Prostate Ultrasound and Biopsy Procedure Note Preoperative Diagnosis: Prostate cancer Postoperative Diagnosis: same Procedure: Prostate Ultrasound and Biopsy (UroNav MRI Fusion) Surgeon: Diony De La Cruz MD Anesthesia: Local EBL, Complications: None Pathology Sent: Prostate Biopsies- Right and Left Hilliards, Right and Left Mid, and Right and Left Basebiopsies, Target Description of Procedure: The patient has recieved instructions on the prostate biopsy, and has been off blood thinners if appropriate. He has performed an enema, and has antibiotics that he has taken today per department protocol. The patient was then prepped in the usual fashion. A formal timeout was performed using the standard [facility] approved checklist. Ultrasound images were obtained of the prostate in transverse and sagittal planes. The ultrasound images were fused with the MRI images using the UroNav platform. The targets identified on MRI (1) was biopsied (3 cores). Sextant biopsies were obtained of the prostate (2 cores per sextant) as well. EBL: < 10cc Assessment: 65M with hx low risk prostate cancer diagnosed in 2019 who is on active surveillance and is now s/pconfirmatory biopsy #1. Plan: I will call the patient with results in 1 week. Patient will f/u with Dr. Plummer for continued Active Surveillance as long as biopsy results are stable. Diony De La Cruz MD Section of Urology [facility] Office: [phone] documented in this encounter Plan of Treatment Upcoming Encounters Date Type Department Care Team (Late st Contact Info) Description 05/21/2024 8:00 AM EST Procedure visit Plastic Surgery at [place] [phone] Diony Huang MD [facility] [place] [address] 07/05/2024 9:00 AM EST Laboratory Appointment Lab 3L [address] 07/05/2024 10:00 AM EST [place] [address] Talisha Nino APRN [facility] [place] [address] documented as of this encounter Visit Diagnoses Diagnosis Malignant neoplasm of prostate documented in this encounter Administered Medications Inactive Administered Medications - up to 3 most recent administrations Medication Order MAR Action Action Date Dose Rate Site fosfomycin tromethamine (MONUROL) packet 3 g 3 g, Oral, ONCE, 1 dose, On Mon08/03/20 at 0815, Pour the entire contents of a sachet containing the equivalent of 3 g of fosfomycin into 4 oz (1/2 cup) of water; do not use hot water. Stir to dissolve. Give immediately after dissolving., Routine, Indication for (Active or Suspected): Prophylaxis Given 08/03/2020 7:45 AM EDT 3 g levoFLOXacin (LEVAQUIN) tablet 500 mg 500 mg, Oral, ONCE, 1 dose, On Mon08/03/20 at 0815, Routine Given 08/03/2020 7:45 AM EDT 500 mg documented in this encounter Care Teams Public Improvement Inspector Relationship Specialty Start Date End Date Roc Alvarado MD PCP - General Family Medicine 03/02/20 12/17/23 documented as of this encounter
--- OUTSIDE RECORDS SUMMARY | 2024-02-26 16:33 | XMS_ITS | Encounter Summary ---
Author Organization [facility] [place] [address] Care Team Providers Care Sound Ranging Crewmember Name Role Phone Roc Alvarado MD Primary Care Provider [phone] Encounter Details Date Type Department Care Team (Late st Contact Info) Description 09/08/2021 9:00 AM EDT [place] [address] Roc Plummer MD [facility] [place] [address] Malignant neoplasm of prostate (Primary Dx) Social History Tobacco Use Types Packs/Day Years Used Date Smoking Tobacco: Never Smokeless Tobacco: Never Sex and Gender Information Value Date Recorded Sex Assigned at Not on file Gender Identity Not on file Sexual Orientation Not on file documented as of this encounter Last Filed Vital Signs Vital Sign Reading Time Taken Comments Blood Pressure 131/75 09/08/2021 9:01 AM EDT Pulse 62 09/08/2021 9:01 AM EDT Temperature - - Respiratory Rate - - Oxygen Saturation - - Inhaled Oxygen Concentration - - Weight - - Height - - Body Mass Index - - documented in this encounter Progress Notes * Roc Plummer MD - 09/08/2021 9:00 AM EDT Patient Name: Jerad Swartz Date of Service: 09/08/2021 Primary Care Provider: Roc Alvarado MD Reason for Visit: Jerad Swartz is a 66 y.o. male who comes for f/u of prostate cancer. He is onActive surveillance The patient had a urologist in [place] at [facility]. UrologistDr Santoyosahara PSA ~01/2019 3.8 06/2019 4.0 10/2019 4.2 01/2020 4.4 07/2020 4.91 08/2021 5.11 06/2019 Biopsy 16 cores 05/26 suspicious 05/26 [...] Santhosh score 3 glands can not be ??entirely excluded. Currently the patient has a weak stream [...] drinks 1 per day Tobacco: None since ~ 10 pack years Systems review: Hikes ~ 2-3 miles/daily [place] weakness or sore ness. All other systems negative. Physical Exam: Vital Signs are reviewed. .The patient appears well developed and healthy. Prostate is 50 grams and symmetrical without tenderness or masses. A little more prominant at the right apex. Not suspicous seminal vesicals are not palpable. No change Lab values are noted X-rays None Impression: #1: [id number] Grade Group 1 Santhosh 3+3=6 Very low risk Prostate cancer #2: LUTS #3: ED Plan: No evidence of progression. COntinue Active surveillance. 6 months PSA and ANABEL All questions answered. documented in this encounter Plan of Treatment Upcoming Encounters Date Type Department Care Team (Late st Contact Info) Description 05/21/2024 8:00 AM EST Procedure [place] [phone] Diony Huang MD [facility] DR PLASTIC [place] [address] 07/05/2024 9:00 AM EST Laboratory Appointment Lab 3L [place] [address] 07/05/2024 10:00 AM EST Office [place] [address] Talisha Nino APRN [facility] [place] [address] documented as of this encounter Results * (ABNORMAL) PSA (Ultrasensitive) (09/08/2021 8:43 AM EDT) Prostate Specific Antigen (Ultrasensitive ) 5.11(H) 0.00 - 4.00 ng/mL [facility] Comment: PLEASE NOTE: The above reference interval is intended for healthy males with an intact prostate. Values within this reference interval may indicate recurrence in men who have undergone radical prostatectomy. Blood 09/08/2021 8:43 AM EDT 09/08/2021 8:55 AM EDT Narrative Resulting Agency Comment Spec In Lab Roc Plummer MD CHEMISTRY ORDERABLES [facility] [place] [address] documented in this encounter Visit Diagnoses Diagnosis Malignant neoplasm of prostate- Primary documented in this encounter Care Teams Sound Ranging Crewmember Relationship Specialty Start Date End Date Roc Alvarado MD PCP - General Family Medicine 03/02/20 12/17/23 documented as of this encounter
--- OUTSIDE RECORDS SUMMARY | 2024-02-26 16:33 | XMS_ITS | Encounter Summary ---
[place] [address] Care Team Providers Care Physical Design Engineer Name Role Phone Roc Alvarado MD Primary Care Provider [phone] Encounter Details Date Type Department Care Team (Latest Contact Info) Description 09/08/2021 8:00 AM EDT Laboratory Appointment Lab [address] [place] [address] Malignant neoplasm of prostate Social History Tobacco [...] AM EST Procedure [place] [address] Diony Huang MD [facility] [place] [address] 07/05/2024 9:00 AM EST Laboratory Appointment Lab [address] [place] [address] 07/05/2024 10:00 AM EST [place] [address] Talisha Nino APRN [facility] [place] [address] documented as of this encounter Procedures Procedure Name Priority Date/Time Associated Diagnosis Comments HC PROSTATE SPECIFIC ANTIGEN STAT 09/08/2021 8:43 AM EDT Malignant neoplasm of prostate documented in this encounter Results * (ABNORMAL) PSA (Ultrasensitive) (09/08/2021 8:43 AM EDT) Prostate Specific Antigen (Ultrasensitive ) 5.11(H) 0.00 - 4.00 ng/mL [facility] Comment: PLEASE NOTE: The above reference interval is intended for healthy males with an intact prostate. Values within this reference interval may indicate recurrence in men who have undergone radical prostatectomy. Blood 09/08/2021 8:43 AM EDT 09/08/2021 8:55 AM EDT Narrative Resulting Agency Comment Spec In Lab Roc Plummer MD CHEMISTRY ORDERABLES [facility] [place] [id number] documented in this encounter Visit Diagnoses Diagnosis Malignant neoplasm of prostate documented in this encounter Care Teams Physical Design Engineer Relationship Specialty Start Date End Date Roc Alvarado MD PCP - General Family Medicine 03/02/20 12/17/23 documented as of this encounter
--- OUTSIDE RECORDS SUMMARY | 2024-02-26 16:33 | XMS_ITS | Encounter Summary ---
[place] [address] Care Team Providers Care Steamer Gum Candy Name Role Phone Roc Alvarado MD Primary Care Provider [phone] Reason for Visit * Reason Onset Date Comments Bumped Appointment 02/16/2023 Encounter Details Date Type Department Care Team (Late Contact Info) Description 02/16/2023 [place] [address] Evgeny Betancourt, DO Bumped Appointment Social History Tobacco Use Types Packs/Day Years [...] encounter Miscellaneous Notes * Telephone Encounter - Alessandra Santoro - 02/17/2023 8:04 AM EDT Jerad has returned a call regarding bumped EMG. Please call at anytime. Jerad states he will be working and will call back if he misses the call * Telephone Encounter - Susy Loredo - 02/16/2023 3:39 PM EDT Please warm transfer to Susy 03/23 EMG to be rescheduled, tech out documented in this encounter Plan of Treatment Upcoming Encounters Date Type Department Care Team (Late Contact Info) Description 05/21/2024 8:00 AM EST Procedure [place] [phone] Diony Huang MD [facility] DR [place] [address] 07/05/2024 9:00 AM EST Laboratory Appointment Lab [address] [place] [address] 07/05/2024 10:00 AM EST [place] [phone] Talisha Nino APRN [facility] [place] [address] documented as of this encounter Visit Diagnoses Not on filedocumented in this encounter Care Teams Steamer Gum Candy Relationship Specialty Start Date End Date Roc Alvarado MD PCP - General Family Medicine 03/02/20 12/17/23 documented as of this encounter
--- OUTSIDE RECORDS SUMMARY | 2024-02-26 16:33 | XMS_ITS | Encounter Summary ---
Author Organization [facility] [place] [address] Care Team Providers Care Residential Supervisor Name Role Phone Roc Alvarado MD Primary Care Provider [phone] Encounter Details Date Type Department Care Team (Latest Contact Info) Description 10/17/2022 Travel Social History Tobacco Use Types Packs/Day [...] AM EST Procedure [place] [phone] Diony Huang MD [facility] [place] [address] 07/05/2024 9:00 AM EST Laboratory Appointment Lab [address] [place] [phone] 07/05/2024 10:00 AM [place] [address] Talisha Nino APRN [facility] [place] [address] documented as of this encounter Visit Diagnoses Not on filedocumented in this encounter Care Teams Residential Supervisor Relationship Specialty Start Date End Date Roc Alvarado MD PCP - General Family Medicine 03/02/20 12/17/23 documented as of this encounter
--- OUTSIDE RECORDS SUMMARY | 2024-02-26 16:33 | XMS_ITS | Encounter Summary ---
Author Organization [facility] [place] [address] Care Team Providers Care High [employer] Combination Teacher Name Role Phone Roc Alvarado MD Primary Care Provider [phone] Encounter Details Date Type Department Care Team (Late st Contact Info) Description 04/21/2023 External [place] [phone] Evgeny Betancourt, Social History Tobacco Use Types Packs/Day Years [...] AM EST Procedure [place] [phone] Diony Huang MD [facility] [place] [address] 07/05/2024 9:00 AM EST Laboratory Appointment Lab [address] [place] [address] 07/05/2024 10:00 AM EST [place] [phone] Talisha Nino APRN [facility] UROLOGY [place], [place] [id number] documented as of this encounter Procedures Procedure Name Priority Date/Time Associated Diagnosis Comments EMG SCAN Routine 04/20/2023 1:23 PM EST documented in this encounter Results * Scan Doc: EMG (04/20/2023 1:23 PM EST) Evgeny Betancourt DO MEDIA MGR SCAN EXT O RDR/RSLT documented in this encounter Visit Diagnoses Not on filedocumented in this encounter Care Teams [employer] Combination Teacher Relationship Specialty Start Date End Date Roc Alvarado MD PCP - General Family Medicine 03/02/20 12/17/23 documented as of this encounter
--- OUTSIDE RECORDS SUMMARY | 2024-02-26 16:33 | XMS_ITS | Encounter Summary ---
Author Organization [facility] [place] [address] Care Team Providers Care Motorcycle Subassembly Repairer Name Role Phone Roc Alvarado MD Primary Care Provider [phone] Encounter Details Date Type Department Care Team (Latest Contact Info) Description 05/26/2023 Travel Social History Tobacco Use Types Packs/Day [...] AM EST Procedure [place] [phone] Diony Huang MD [facility] [place] [address] 07/05/2024 9:00 AM EST Laboratory Appointment Lab [address] [place] [phone] 07/05/2024 10:00 AM EST Office [place] [address] Talisha Nino APRN [facility] [place] [address] documented as of this encounter Visit Diagnoses Not on filedocumented in this encounter Care Teams Motorcycle Subassembly Repairer Relationship Specialty Start Date End Date Roc Alvarado MD PCP - General Family Medicine 03/02/20 12/17/23 documented as of this encounter
--- OUTSIDE RECORDS SUMMARY | 2024-02-26 16:33 | XMS_ITS | Clinical Summary ---
Author Organization [facility] Address [address] [place] [id number] Care Team Providers Care Experimental Physicist Name Role Phone Unavailable Primary Care Provider Unavailabl e Social History Tobacco Use Types Packs/Day Years Used Date Smoking Tobacco: Never Assessed Sex and Gender Information Value Date Recorded Sex Assigned at Not on file Gender Identity Not on file Sexual Orientation Not on file Plan of Treatment Health Maintenance Due Date Last Done Comments RSV Immunization ( o r 60+ Years) (1 - 1-dose 60+ series) 2016 Fall Risk Screening 2021 COVID-19 Vaccine (2022- season) 2023 Hepatitis C Screen Completed 03/03/2021 Procedures Procedure Name Priority Date/Time Associated Diagnosis Comments HEPATITIS C AB W REFLEX TO HCV RNA BY PCR Routine 03/03/2021 9:20 EDT from Last 3 Months or Most Recently Relevant to Health Maintenance Results * HEPATITIS C AB W REFLEX TO HCV RNA BY PCR (03/03/2021 9:20 EDT) Hep C Antibody Negative Negative 03/04/2021 10:[address] [facility] Blood VENOUS BLOOD / Unknown 03/03/2021 9:20 EDT 03/03/2021 21:02 EDT Provider Outr Resulting Lab CHEMISTRY & BLOOD GAS ORDERABLES [facility] [address] [place] [address] from Last 3 Months or Most Recently Relevant to Health Maintenance
--- OUTSIDE RECORDS SUMMARY | 2024-02-26 16:33 | XMS_ITS | Encounter Summary ---
Author Organization [facility] Address [facility] [address] [place] [address] Care Team Providers Care Business Office Director Name Role Phone Roc Alvarado MD Primary Care Provider [phone] Encounter Details Date Type Department Care Team (Late st Contact Info) Description 07/24/2020 [place] [address] Roc Plummer MD [facility] [place] [address] Social History Tobacco Use Types Packs/Day Years Used Date Smoking Tobacco: Never Smokeless Tobacco: Never Sex and Gender Information Value Date Recorded Sex Assigned at Not on file Gender Identity Not on file Sexual Orientation Not on file documented as of this encounter Miscellaneous Notes * Telephone Encounter - Roc Plummer MD - 07/24/2020 9:07 AM EST Tried to call on 2 sperate occasions 24 hours apart to address. If he calls back He does have a very small low risk prostate cancer or a Malignant Neoplasm of Prostate. The purpose of his upcoming biopsy with Dr De La Cruz is to ensure that this is not important and make sure that it likely he will of something else Patient calls concerned by what he sees his MRI listed as on his portal. It states Malignant Neoplasm of Prostate. This made him very uneasy seeing this and thought I'd of something else and he would like to talk to someone before talking to his . ?? Patient saw Dr. Plummer in March, is scheduled for a biopsy with Dr. De La Cruz on 08/03/20 ?? If someone could give him a call at [phone] documented in this encounter Plan of Treatment Upcoming Encounters Date Type Department Care Team (Late st Contact Info) Description 05/21/2024 8:00 AM EST Procedure [place] [phone] Diony Huang MD [facility] [place] [address] 07/05/2024 9:00 AM EST Laboratory Appointment Lab [address] [place] [phone] 07/05/2024 10:00 AM EST [place] [phone] Talisha Nino APRN [facility] [place] [address] documented as of this encounter Visit Diagnoses Not on filedocumented in this encounter Care Teams Business Office Director Relationship Specialty Start Date End Date Roc Alvarado MD PCP - General Family Medicine 03/02/20 12/17/23 documented as of this encounter
[2024-02-26 19:45] LABS: ALT 25 U/L (16-63); AST 25 U/L (15-37); Albumin 3.9 g/dL (3.4-5.0); Alkaline Phosphatase 52 U/L (46-116); Anion Gap 11.6 mmol/L (3-11); BUN 11 mg/dL (7-18); Bilirubin, Total 0.72 mg/dL (0.2-1.0); CO2 24.4 mmol/L (21.0-32.0); CREATININE 0.8 mg/dL (0.70-1.30); Calcium 8.9 mg/dL (8.5-10.1); Calculated LDL 65 mg/dL (<100); Chloride 108 mmol/L (98-107); Cholesterol 123 mg/dL (<200); Glucose 102 mg/dL (74-106); HDL Cholesterol 44 mg/dL (40-60); Potassium 4.2 mmol/L (3.5-5.1); Sodium 144 mmol/L (136-145); Total Protein 6.9 g/dL (6.4-8.2); Triglyceride 70 mg/dL (<150)
[2024-02-26 19:46] LABS: Hemoglobin A1C 5.5 % (<5.7)
== END 2024-02-26 16:32 | disposition home or self-care (01) ==
LOC: NCHCN 16:31
PROVIDERS: PCP Family Medicine; Visit Provider Family Medicine
DX: I10 Essential (primary) hypertension (principal); R73.03 Prediabetes
CPT/HCPCS: 80053; 80061; 83036

== ENCOUNTER 2024-05-10 06:56 | Day surgery (SDC) | payer BC, SELFPAY ==
--- NOTE | 2024-05-09 16:11 | W.PM.DSUDISC ---
Date of service: 05/10/24 Discharge Plan Disposition Patient Disposition: Home Condition: Good Discharge Details Reason For Visit: screening colonsocopy Attending Provider: Jadon Porter Primary Care Provider: Jaz Sy Home Meds and New Rx's Prescriptions: Continued atorvastatin 20 mg tablet 20 mg PO DAILY olmesartan 20 mg tablet 10 mg PO DAILY albuterol sulfate [Ventolin HFA] 90 mcg/actuation HFA aerosol inhaler 2 puff inhalation Q6H PRN tamsulosin [Flomax] 0.4 mg Capsule 0.4 mg PO DAILY Rx Instructions: Take 3 Tabs Daily Zyrtec 10 mg Capsule 10 mg PO DAILY tadalafil [Cialis] 10 mg Tablet 10 mg PO PRN PRN bupropion HCl [Wellbutrin SR] 150 mg Tablet Sustained-Release 12 Hr 150 mg PO DAILY Cequa 0.09 % Dropperette 1 drp ophthalmic (eye) BID Rx Instructions: OU Discontinued bisacodyl [Dulcolax (bisacodyl)] 5 mg tablet,delayed release (DR/EC) 5 mg PO ONCE Qty: 4 0RF Rx Instructions: Take per colonoscopy instructions provided by ordering providers office polyethylene glycol 3350 17 gram/dose powder 17 g PO ONCE Qty: 238 0RF Rx Instructions: Take per colonoscopy instructions provided by ordering providers office Discharge Instructions Instructions: Colon polyps Additional Instructions: Jerad, it was very nice meeting you today, and I hope you are comfortable through the colonoscopy. Everything went very smoothly. Your prep was excellent. I did find, and removed, single polyp today. Polyps, different varieties, and this will be sent off to the pathologist for their review. That information will be used to help guide the timing of your next colonoscopy. Those results usually take a week or so, but once my office has them, we will be in touch with those recommendations. If you need anything or have any questions in the meantime, please do not hesitate to call 1. If tolerated, consume a soft, low fiber diet for 1-2 days. 2[address] Do not drive, drink alcohol, operate machinery, make critical decisions, or do activities that require coordination or balance for 24 hours. 3. Because air was put into your colon during the procedure, expelling air from your rectum (passing gas or farting) is normal. 4. You may not have a bowel movement for 1-3 days because of the colonoscopy prep. This is normal. 5. Go directly to the emergency room if you notice any of the following: Develop chills (warm to touch), or if you have a thermometer and your temperature is above 101 Difficulty breathing or difficultly swallowing Persistent vomiting Severe abdominal pain, other than gas cramps Severe chest pain Black, tarry stools Any bleeding ? exceeding one tablespoon 6. Call your physician if the site where your intravenous was started becomes red, swollen, painful, and warm to touch. 7. Your physician has reviewed your pre-procedure medications. Please continue to take those medications as previously ordered. You will be given specific information/education regarding any changes to your medications before leaving. Activity:: Activity as Tolerated Diet:: As Tolerated Discharge Orders Discharge Orders: Discharge Order (Routine); Ordered 05/09/24 Ordered By: Jadon Poretr DS: Diagnosis Discharge Diagnosis (1) Encounter for screening colonoscopy: Status: Acute Asessment and Plan: Follow-up on polypectomy results
--- NOTE | 2024-05-09 16:13 | W.COLOREPORT ---
Date of service: 05/10/24 Time of Service: 08:58 Colonoscopy Report Date of procedure: 05/10/24 Pre-op diagnosis general: screening colonoscopy Post-op diagnosis procedure note: other (Colon polyp) Procedure: colonoscopy with polypectomy Surgeon: Jadon Porter Anesthesia Type: General:No Airway Estimated blood loss (mL): 5 Pathology: other (0.25 cm pedunculated polyp in the cecum) Complications: None Disposition: same day Indications: Jerad is a 68 year old man who needs his next screening colonscopy Prep: Miralax/Dulcolax Procedure Start Time: 08:28 Procedure End Time: 08:49 Retraction Time: 11 Findings: 0.25 cm pedunculated cecal polyp Procedure Description: After the induction of anesthesia, and with the patient in left lateral decubitus position, I began by performing an external anorectal exam.? Perineum and skin were normal, as was the anal verge.? There was no evidence of external hemorrhoids.? Next, I performed a digital rectal exam.? I did not appreciate any abnormal findings.? Next, I advanced a colonoscope into the rectal vault.? I performed retroflexion.? This appeared normal.? Using insufflation, I then advanced the colonoscope beyond the rectal folds and into the sigmoid colon before advancing towards the cecum.? The quality of the prep was excellent.? The scope was noted to be in the cecum by identification of the ileocecal valve and appendiceal orifice.? Just a few centimeters away from the appendiceal orifice was a 0.25 cm slightly pedunculated polyp. This was removed with cold forcep polypectomy. There was minimal bleeding from the site. I then began withdrawing the colonoscope using repeated irrigation as necessary for full evaluation of the colonic mucosa. ?Once the scope was withdrawn to the level of the rectum, great care was taken to examine portions of the rectal folds.? Finally, the scope was withdrawn and the patient was brought to the same-day surgery recovery unit as the anesthetic wore off. ?The findings and instructions were shared with the patient prior to discharge. [place] Bowel Prep [place] Bowel Prep Right Colon: 3 Left Colon: 3 Transverse Colon: 3 Total Score: 9
[2024-05-10 07:18] VITALS: BP 124/71; PULSE 64; RESP 18; TEMP 36.4; O2SAT 99
--- NOTE | 2024-05-10 07:36 | ANES.PREOP_ITS ---
General Info Date of Service Date Performed: 05/10/24 Height: 5 ft 7 in Weight: 84.9 kg Body Mass Index (BMI): 29.2 Surgical Procedure: Operation Date: 05/10/24 08:20 Proposed Procedure Side Surgeon jas Porter MD Meds Allergies and Home Medications Allergies Allergy/AdvReac Type Severity Reaction Status Date / Time No Known Allergies Allergy Unverified 05/10/24 07:18 Home Medication ?Medication ?Instructions ?Recorded bupropion HCl 150 mg tablet,12 hr 150 mg PO DAILY 03/27/20 sustained-release (Wellbutrin SR) cetirizine 10 mg capsule (Zyrtec) 10 mg PO DAILY 03/27/20 cyclosporine 0.09 % eye drops in a 1 drp ophthalmic (eye) BID 03/27/20 dropperette (Cequa) tadalafil 10 mg tablet (Cialis) 10 mg PO PRN PRN 03/27/20 tamsulosin 0.4 mg capsule (Flomax) 0.4 mg PO DAILY 03/27/20 albuterol sulfate 90 mcg/actuation 2 puff inhalation Q6H PRN 04/10/24 aerosol inhaler (Ventolin HFA) atorvastatin 20 mg tablet 20 mg PO DAILY 04/10/24 olmesartan 20 mg tablet 10 mg PO DAILY 04/10/24 Current Visit Medications: Current Medications Generic Name Dose Route Start Last Admin Trade Name Freq PRN Reason Stop Dose Admin Ringer's Solution 1,000 mls @ 80 mls/hr 05/10/24 07:00 IV 06/09/24 06:59 INFUSION EMRE IV Miscellaneous Supplies 1 each 05/10/24 06:00 Iv Access IV 05/10/24 23:59 DIRECTED EMRE Ondansetron HCl 4 mg 05/09/24 16:14 Ondansetron 4 Mg/2 Ml Vial IVP 06/08/24 16:13 Q4H PRN PRN Nausea / Vomiting Sodium Chloride 0 ml 05/10/24 06:00 Normal Saline Flush 10 Ml Syr IV 05/10/24 23:59 PRN PRN Sodium Chloride 0 ml 05/10/24 06:00 Normal Saline 10 Ml Vial IJ 05/10/24 23:59 DIRECTED PRN Sterile Water 0 ml 05/10/24 06:00 Water,Injection,Sterile 10 Ml Vial IJ 05/10/24 23:59 DIRECTED PRN PFSH Active Problems Active Problems: Problem Status Onset Code Essential hypertension Acute I10 Hyperlipidemia Acute E78.5 Blunt chest trauma Acute S29.8XXA Cervical strain Acute S16.1XXA Rib contusion Acute S20.219A Medical History Medical History Prediabetes Diastolic dysfunction Mixed anxiety and depressive disorder Malignant tumor of prostate Surgical History Surgical History History of colonoscopy History of tonsillectomy History of carpal tunnel release of both wrists History of total bilateral knee replacement History of rotator cuff surgery Left History of neck surgery C2-7 Open door procedure/ 2 plates History of back surgery L4-5 discectomy Tobacco Smoking/Tobacco Use Status: Former Tobacco Use Alcohol Alcohol Intake: current Alcohol intake frequency: 0-2 drinks per day Alcohol type: hard liquor Substance Use Substance use: Never Substance use type: does not use Vital Signs and Lab Results Vital Signs Most Recent Vital Signs in EMR: Most Recent Vital Signs Temp Pulse Resp BP Pulse Ox 36.4 C L 64 18 124/71 99 05/10/24 07:18 05/10/24 07:18 05/10/24 07:18 05/10/24 07:18 05/10/24 07:18 Lab Results Blood Type / Crossmatch: No Data to Display Complete Blood Count: No Data to Display Complete Metabolic Panel: No Data to Display Liver Function Panel: No Data to Display Coagulation Panel: No Data to Display Cardiac Panel: No Data to Display Arterial Blood Gas: No Data to Display Venous Blood Gas: 2 No Data to Display Pancreas Panel: No Data to Display Thyroid Panel: No Data to Display Infectious Disease: No Data to Display Blood Cultures: No Data to Display Toxicology Panel: No Data to Display Imaging and Studies Imaging and Studies Study information below may be from another EMR and interpreted by another provider. Please see original notes in EMR for more complete details. Echocardiogram Summary: 04/2023: Conclusion Normal left ventricular wall thickness and chamber size. Ejection fraction is 59%. Wall motion is normal. There is stage I diastolic dysfunction Normal right ventricular size and systolic function Both atria are normal in size Aortic valve is trileaflet and mildly sclerotic with mild regurgitation. There is no aortic stenosis Estimated right ventricular systolic pressure is 24 mmHg Mildly dilated ascending aorta 3.77 cm Anesthesia Assessment and Plan Anesthesia History Personal History: No History of Anesthesia Complications Family History: No Family History of Anesthesia Complications Exercise Tolerance Exercise Tolerance: Metabolic Equivalents>4 Pertinent Negatives Pertinent Negatives: No Symptoms of GERD Cardiac & Pulmonary Exam Cardiac Exam: Normal S1/S2 Heart Sounds Pulmonary Exam: Clear Bilateral Breath Sounds Implantable Cardiac Device Does patient have a Pacemaker or an ICD?: No Airway Exam Known Difficult Airway: No Mallampati Class: 1 Mouth Opening: Normal (> 3cm) Thyromental Distance: Greater than 3 cm Neck Range of Motion: Full ROM Neck Circumference: Normal Teeth Condition: Normal Dentition ASA Classification ASA Score: ASA 2 Emergency Case?: No NPO Status NPO Status: NPO Clears >2 hours, Solids >8 hours Anesthesia Plan Resuscitation Status: Full Code Anesthesia Technique: General Anesthesia Airway Planned: Natural Airway Monitors Used: Standard Monitors
[2024-05-10] MEDS: Lactated Ringers 1,000 ML 80 ML IV (07:38)
[2024-05-10 07:39] VITALS: BMI 29.2
--- NOTE | 2024-05-10 08:39 | BOWEL_PTH ---
PATIENT: Jerad Swartz LOC: [facility] U#:[id number] AGE/SX: 68/M ROOM: RE05/10/[address]: Jadon Porter MD : [id number] BED: DIS: 05/10/2024 SPEC #: [id number] RECD: 05/10/24 12:32 STATUS: DUANE REQ #: [id number] CITLALI: 05/10/24 08:[address]: Jadon Porter DEPT: Surgical Specimen RECD BY: Christiana Cornejo ENTERED: 05/10/24 12:32 SP TYPE: Bowel OTHR DR: Jaz Sy Tissues: 1 - BIOPSY BOWEL Procedures: GROSS AND MICRO LEVEL 4 Comments: [id number]
[2024-05-10 08:55] VITALS: BP 106/45; PULSE 77; RESP 17; TEMP 36.5; O2SAT 100
--- NOTE | 2024-05-10 09:14 | W.ANESPOSTOP ---
Postoperative Evaluation Date, Time and Location Date Performed: 05/10/24 Time Performed: 09:05 Patient Location: Day Surgery Unit Vital Signs Most Recent Imported Vital Signs: Most Recent Vital Signs Temp Pulse Resp BP Pulse Ox 36.5 C 77 17 106/45 L 100 05/10/24 08:55 05/10/24 08:55 05/10/24 08:55 05/10/24 08:55 05/10/24 08:55 Assessment Mental Status: Arousable with meaningful communication Airway and Respiratory Function: Patent airway with normal (patient baseline) respiratory exam Cardiovascular Function: Hemodynamically Stable Hydration Status: Adequately Hydrated Nausea & Vomiting: No Nausea or Vomiting Pain: Pt. Denies Any Pain Peripheral Nerve Block: Patient did not receive a nerve block
[2024-05-10 09:23] VITALS: BP 136/75; PULSE 58; RESP 20; TEMP 36.7; O2SAT 98
== END 2024-05-10 09:36 | disposition home or self-care (01) ==
LOC: SUR 06:57
PROVIDERS: PCP Family Medicine; Visit Provider Surgery
PROC: 0DJD8ZZ Inspection of Lower Intestinal Tract, Via Natural or Artificial Opening Endoscopic (ICD-10-PCS; CPT 45378; principal; 2024-05-10 08:15)
DX: Z12.11 Encounter for screening for malignant neoplasm of colon (principal); I10 Essential (primary) hypertension; D12.0 Benign neoplasm of cecum
CPT/HCPCS: 45380; 88305; J2704